=== PATIENT | female | born 1945 | race Caucasian/White ===

== ENCOUNTER → 2017-04-20 | Outpatient (CLI) | payer MEDICARE, BC ==
--- NOTE | 2017-04-21 06:55 | WWHP ---
DATE OF SERVICE: 04/20/2017 CHIEF COMPLAINT: The patient is here for her routine gynecologic exam. HPI: This is a 72-year-old G2, P2 with an LMP of 1991. The patient previously was on HRT and she was instructed to wean off of this. She states she decreased the dose by 50% in 05/23 and stopped HRT altogether in 07/24. She states she does have occasional hot flashes, but not every day and they are not very severe. She is otherwise without complaints and denies any postmenopausal bleeding. PAST MEDICAL HISTORY: Chronic hypertension and gastroesophageal reflux disease. MEDICATIONS: 1. Omeprazole 20 mg b.i.d. 2. Atenolol 25 mg half tablet daily. 3. Vitamin D3, 1000 units daily. 4. Aspirin 81 mg daily. 5. Multivitamin daily. 6. Probiotic daily. 7. FiberChoice 2 daily. ALLERGIES: RYNATAN, DISALCID, BACTRIM DS and TOBRAMYCIN EYE DROPS. 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 REVIEW OF SYSTEMS: She has gained about 8 pounds over the last year. RESPIRATORY: She occasionally gets short of breath. She denies cardiac or GI problems. She denies maltreatment or falling. : Bladder control has been not a problem. PHYSICAL EXAM: Blood pressure 138/82. Height 5 feet 2 inches. Weight 220 pounds. Temperature 96.0. Pulse 60. This a well-developed, heavyset white female who is alert and oriented x3 in no acute distress. HEENT is within normal limits. NECK: Supple without mass or thyromegaly. CHEST AND LUNGS: Clear to auscultation. HEART: Regular rate and rhythm. Breasts are without mass or discharge. Axillary exam is negative for adenopathy. BACK: Negative for CVA tenderness. ABDOMEN: Obese, soft, nontender, without palpable masses. PELVIC EXAM: External genitalia reveals mild to moderate atrophy without lesions. Cervix and vagina reveal mild to moderate atrophy without lesions. There is no evidence of prolapse. The uterus is midposition, nongravid size and nontender. There are no palpable adnexal masses or tenderness. Rectovaginal exam is negative for mass or tenderness and is negative for occult blood. EXTREMITIES: Nontender. IMPRESSION: 1. A 72-year-old menopausal female with normal gynecologic exam. 2. The patient has weaned herself off of the HRT as of 07/24. 3. Mild vasomotor symptoms after discontinuing HRT. PLAN: 1. Pap smear was deferred, since she had a normal one last year. 2. Self breast examination was discussed. 3. Mammogram will be due in 06/24 and a slip was given to patient for this. 4. Osteoporosis prevention was discussed. Will plan on repeating bone density testing next year. 5. She will return in one year.
== END | disposition home or self-care (01) ==
LOC: WWCWWP 13:08
PROVIDERS: ATTEND Obstetrics & Gynecology
DX: Z53.9 Procedure and treatment not carried out, unspecified reason (principal)

== ENCOUNTER → 2017-07-21 | Outpatient (CLI) | payer MEDICARE, BC ==
--- NOTE | 2017-07-22 08:27 | MM ---
Reason for exam: screening (asymptomatic). Last mammogram was performed 1 year and 1 month ago. History: Patient is postmenopausal and has history of other cancer at age 54. Family history of breast cancer in daughter at age 45. Taking progesterone for 17 years beginning at age 52. Physical Findings: A clinical breast exam by your physician is recommended on an annual basis and results should be correlated with mammographic findings. MG 3D Screening Mammo W/Cad Bilateral CC and MLO view(s) were taken. Prior study comparison: June 22, 2016, bilateral MG 3d screening mammo w/cad. June 21, 2015, bilateral MG screening mammo w CAD. The breast tissue is heterogeneously dense. This may lower the sensitivity of mammography. Focal asymmetry in the lower right MLO view is stable. No significant changes when compared with prior studies. ASSESSMENT: Benign, BI-RAD 2 RECOMMENDATION: Routine screening mammogram of both breasts in 1 year.
== END | disposition home or self-care (01) ==
LOC: RADMAMWWP 09:54
PROVIDERS: ATTEND Obstetrics & Gynecology
DX: Z12.31 Encounter for screening mammogram for malignant neoplasm of breast (principal)
CPT/HCPCS: 77063; G0202

== ENCOUNTER 2017-08-29 13:24 | Observation (INO) | payer MEDICARE, BC ==
[2017-08-29] MEDS ORDERED: NITROGLYCERIN OINT 1 INCH/GM PACKET TOPICAL STA (13:42)
[2017-08-29] MEDS ORDERED: ASPIRIN 81 MG PO STA (13:42)
--- NOTE | 2017-08-29 13:48 | ED ---
General Adult HPI - General Stated complaint: chest pain Time Seen by Provider: 08/29/17 13:25 Source: RN notes reviewed - History of Present Illness Initial comments: This is a 72-year-old female who presents emergency Department complaining of chest pressure about a half hour prior to arrival. According to the paramedics the patient was in atrial fibrillation and converted in route and her pressure went away. Patient was not given any nitroglycerin but was given an aspirin. Patient currently states she feels considerably better. Patient denies any radiation of the pain. Patient denies any diaphoresis per patient denies any nausea. Patient denies any shortness of breath. Patient states she has not experienced this in the past. Patient states she does have high blood pressure high cholesterol and she does have a family history of heart disease. Patient denies any recent fever chills or cough. Patient denies any headache patient denies lightheadedness or dizziness. Patient denies any near syncopal episodes. Patient denies any abdominal pain patient denies any vomiting diarrhea - Related Data Home Medications Medication Instructions Recorded Confirmed Aspirin EC [Ecotrin] 81 mg PO HS 04/25/15 08/29/17 Cholecalciferol [Vitamin D3] 1,000 unit PO DAILY 04/25/15 08/29/17 Multivitamins, Thera [Theragran] 1 tab PO HS 04/25/15 08/29/17 Omeprazole [PriLOSEC] 20 mg PO BID 04/25/15 08/29/17 Atenolol [Tenormin] 12.5 mg PO HS 08/29/17 08/29/17 Inulin/Chromium Picolinate [Fiber 2 tab PO HS 08/29/17 08/29/17 Gummies Chew] L.acidoph,Paracasei, B.lactis 1 cap PO DAILY 08/29/17 08/29/17 [Probiotic] Allergies Allergy/AdvReac Type Severity Reaction Status Date / Time erythromycin base Allergy Unknown Verified 08/29/17 14:31 [From Erythrocin] salsalate [From Disalcid] AdvReac Vomiting Verified 08/29/17 14:31 Sulfa (Sulfonamide AdvReac Vomiting Verified 08/29/17 14:31 Antibiotics) tobramycin AdvReac Vomiting Verified 08/29/17 14:31 Review of Systems ROS Statement: Those systems with pertinent positive or pertinent negative responses have been documented in the HPI. ROS Other: All systems not noted in ROS Statement are negative. Past Medical History Past Medical History: GERD/Reflux, Hyperlipidemia, Hypertension Additional Past Medical History / Comment(s): 04/26/15 Pt presented to [facility] ER with burning pain epigastric and sternal and going up into her throat with nausea as well. She felt weak. Subligual nitrogylcering with gradual relief. Other hx: Past EGD which showed gastritis, hiatal hernia and esophagitis, basal cell skin cancer, diverticulitis, L great toe fungus infection being tx with topical RX, low back pain, DDD, tinnitis bilaterally, occasional ankle edema-uses lasix prn for this but has not needed for a long time. History of Any Multi-Drug Resistant Organisms: None Reported Past Surgical History: Cholecystectomy, Orthopedic Surgery Additional Past Surgical History / Comment(s): 04/26/15 Ccath-normal, EGD, colonoscopies and once a polypectomy-benign, basa cell skin cancer removal (nose ), bilateral bunionectomies. Past Anesthesia/Blood Transfusion Reactions: No Reported Reaction Past Psychological History: No Psychological Hx Reported Smoking Status: Never smoker Past Alcohol Use History: None Reported Past Drug Use History: None Reported - Past Family History Father Additional Family Medical History / Comment(s): Parkinson's dx. Father is . Mother Family Medical History: Diabetes Mellitus, Thyroid Disorder Additional Family Medical History / Comment(s): Father is alive and 93 yrs old. General Exam - General Exam Comments Initial Comments: GENERAL: Patient is well-developed and well-nourished. Patient is nontoxic and well- hydrated and is in mild distress. ENT: Neck is soft and supple. No significant lymphadenopathy is noted. Oropharynx is clear. Moist mucous membranes. Neck has full range of motion without eliciting any pain. EYES: The sclera were anicteric and conjunctiva were pink and moist. Extraocular movements were intact and pupils were equal round and reactive to light. Eyelids were unremarkable. PULMONARY: Unlabored respirations. Good breath sounds bilaterally. No audible rales rhonchi or wheezing was noted. CARDIOVASCULAR: There is a regular rate and rhythm without any murmurs gallops or rubs. ABDOMEN: Soft and nontender with normal bowel sounds. No palpable organomegaly was noted. There is no palpable pulsatile mass. SKIN: Skin is clear with no lesions or rashes and otherwise unremarkable. NEUROLOGIC: Patient is alert and oriented x3. Cranial nerves II through XII are grossly intact. Motor and sensory are also intact. Normal speech, volume and content. Symmetrical smile. MUSCULOSKELETAL: Normal extremities with adequate strength and full range of motion. No lower extremity swelling or edema. No calf tenderness. LYMPHATICS: No significant lymphadenopathy is noted PSYCHIATRIC: Normal psychiatric evaluation. Normal interpersonal interactions appears functionally intact in deals appropriately with others. No signs of depression. No signs of anxiety. Course Vital Signs 08/29/17 08/29/17 13:47 14:56 Temperature 98 F Pulse Rate 64 59 L Respiratory 18 18 Rate Blood Pressure 183/79 159/72 O2 Sat by Pulse 98 98 Oximetry Medical Decision Making - Medical Decision Making EKG shows a sinus bradycardia 59 bpm AK interval is on a 34 QRS is 94 Q-T intervals 408 QTC is 403 per patient's EKG shows no ST segment elevation or depression or T-wave abdomen is noted. Chest x-ray shows no acute abnormality I started the patient heparin because of the A. fib that the patient was having prior to coming to the hospital. I spoke with Dr. Shankar he agreed to admit the patient admitted the patient I consult cardiogenic continue the heparin on the floor. - Lab Data Result diagrams: 08/29/17 13:54 08/29/17 13:54 Lab Results 08/29/17 08/29/17 08/29/17 Range/Units 13:54 13:54 13:54 WBC 7.6 (3.8-10.6) k/uL RBC 4.77 (3.80-5.40) m/uL Hgb 14.6 (11.4-16.0) gm/dL Hct 44.8 (34.0-46.0) % MCV 93.9 (80.0-100.0) fL MCH 30.7 (25.0-35.0) pg MCHC 32.7 (31.0-37.0) g/dL RDW 13.8 (11.5-15.5) % Plt Count 195 (150-450) k/uL Neutrophils % 54 % Lymphocytes % 36 % Monocytes % 6 % Eosinophils % 2 % Basophils % 1 % Neutrophils # 4.1 (1.3-7.7) k/uL Lymphocytes # 2.8 (1.0-4.8) k/uL Monocytes # 0.4 (0-1.0) k/uL Eosinophils # 0.1 (0-0.7) k/uL Basophils # 0.1 (0-0.2) k/uL PT (9.0-12.0) sec INR (<1.2) APTT (22.0-30.0) sec Sodium 140 (137-145) mmol/L Potassium 3.7 (3.5-5.1) mmol/L Chloride 105 (98-107) mmol/L Carbon Dioxide 24 (22-30) mmol/L Anion Gap 11 mmol/L BUN 15 (7-17) mg/dL Creatinine 0.86 (0.52-1.04) mg/dL Est GFR (MDRD) Af Amer >60 (>60 ml/min/1.73 sqM) Est GFR (MDRD) Non-Af >60 (>60 ml/min/1.73 sqM) Glucose 149 H (74-99) mg/dL Calcium 9.7 (8.4-10.2) mg/dL Magnesium 1.8 (1.6-2.3) mg/dL Total Bilirubin 0.4 (0.2-1.3) mg/dL AST 31 (14-36) U/L ALT 37 (9-52) U/L Alkaline Phosphatase 69 (38-126) U/L Total Creatine Kinase 84 (30-135) U/L CK-MB (CK-2) 1.4 (0.0-2.4) ng/mL CK-MB (CK-2) Rel Index 1.7 Troponin I <0.012 (0.000-0.034) ng/mL NT-Pro-B Natriuret Pep pg/mL Total Protein 7.4 (6.3-8.2) g/dL Albumin 4.1 (3.5-5.0) g/dL 08/29/17 08/29/17 Range/Units 13:54 13:54 WBC (3.8-10.6) k/uL RBC (3.80-5.40) m/uL Hgb (11.4-16.0) gm/dL Hct (34.0-46.0) % MCV (80.0-100.0) fL MCH (25.0-35.0) pg MCHC (31.0-37.0) g/dL RDW (11.5-15.5) % Plt Count (150-450) k/uL Neutrophils % % Lymphocytes % % Monocytes % % Eosinophils % % Basophils % % Neutrophils # (1.3-7.7) k/uL Lymphocytes # (1.0-4.8) k/uL Monocytes # (0-1.0) k/uL Eosinophils # (0-0.7) k/uL Basophils # (0-0.2) k/uL PT 10.6 (9.0-12.0) sec INR 1.0 (<1.2) APTT 21.7 L (22.0-30.0) sec Sodium (137-145) mmol/L Potassium (3.5-5.1) mmol/L Chloride (98-107) mmol/L Carbon Dioxide (22-30) mmol/L Anion Gap mmol/L BUN (7-17) mg/dL Creatinine (0.52-1.04) mg/dL Est GFR (MDRD) Af Amer (>60 ml/min/1.73 sqM) Est GFR (MDRD) Non-Af (>60 ml/min/1.73 sqM) Glucose (74-99) mg/dL Calcium (8.4-10.2) mg/dL Magnesium (1.6-2.3) mg/dL Total Bilirubin (0.2-1.3) mg/dL AST (14-36) U/L ALT (9-52) U/L Alkaline Phosphatase (38-126) U/L Total Creatine Kinase (30-135) U/L CK-MB (CK-2) (0.0-2.4) ng/mL CK-MB (CK-2) Rel Index Troponin I (0.000-0.034) ng/mL NT-Pro-B Natriuret Pep 385 pg/mL Total Protein (6.3-8.2) g/dL Albumin (3.5-5.0) g/dL Disposition Clinical Impression: New onset a-fib, Chest pressure Disposition: ADMITTED IP TO THIS [facility] Referrals: Fernandez Trujillo DO [Primary Care Provider] - 1-2 days Time of Disposition: 15:07
[2017-08-29 14:01] LABS: Basophils # (A) 0.1 k/uL (0-0.2); Basophils % (A) 1 %; CH 32.1; CHCM 34.3; Eosinophils # (A) 0.1 k/uL (0-0.7); Eosinophils % (A) 2 %; HCT 44.8 % (34.0-46.0); HDW 2.45; HGB 14.6 gm/dL (11.4-16.0); Luc # (Auto) 0.13; Luc % (Auto) 2; Lymphocytes # (A) 2.8 k/uL (1.0-4.8); Lymphocytes % (A) 36 %; MCH 30.7 pg (25.0-35.0); MCHC 32.7 g/dL (31.0-37.0); MCV 93.9 fL (80.0-100.0); Mean Platelet Volume 7.2; Monocytes # (A) 0.4 k/uL (0-1.0); Monocytes % (A) 6 %; Neutrophils # (A) 4.1 k/uL (1.3-7.7); Neutrophils % (A) 54 %; RBC 4.77 m/uL (3.80-5.40); RDW 13.8 % (11.5-15.5); WBC 7.6 k/uL (3.8-10.6); WBC (Perox) 7.57
[2017-08-29 14:11] LABS: ALT 37 U/L (9-52); AST 31 U/L (14-36); Alkaline Phosphatase 69 U/L (38-126); Anion Gap 11 mmol/L; Blood Urea Nitrogen 15 mg/dL (7-17); Calcium 9.7 mg/dL (8.4-10.2); Carbon Dioxide 24 mmol/L (22-30); Chloride 105 mmol/L (98-107); Glucose 149 mg/dL (74-99); Magnesium 1.8 mg/dL (1.6-2.3); Non-African American GFR(MDRD) >60 (>60 ml/min/1.73 sqM); Potassium 3.7 mmol/L (3.5-5.1); Sodium 140 mmol/L (137-145); Total Bilirubin 0.4 mg/dL (0.2-1.3); Total Protein 7.4 g/dL (6.3-8.2)
[2017-08-29 14:17] LABS: Partial Thromboplastin Time 21.7 sec (22.0-30.0); Prothrombin Time 10.6 sec (9.0-12.0)
[2017-08-29 14:24] LABS: Creatine Kinase 84 U/L (30-135)
[2017-08-29 14:38] LABS: Creatine Kinase MB 1.4 ng/mL (0.0-2.4); Troponin I <0.012 ng/mL (0.000-0.034)
--- NOTE | 2017-08-29 14:39 | XR ---
EXAMINATION TYPE: XR chest 2V DATE OF EXAM: 08/29/2017 COMPARISON: April 26, 2015 HISTORY: Chest pain TECHNIQUE: Frontal and lateral views of the chest are obtained. FINDINGS: There is stable elevation right hemidiaphragm. No pneumothorax or sizable pleural effusion is identified. The cardiac silhouette is unchanged. Calcifications are identified and a tortuous aor ta. There is slight exaggeration of the normal thoracic kyphosis. There is a degree of osteopenia. IMPRESSION: No acute cardiopulmonary process.
[2017-08-29] MEDS ORDERED: HEPARIN SODIUM,PORCINE 5,000 UNIT/ML 1 ML VIAL IV ONE (15:06)
[2017-08-29] MEDS ORDERED: NITROGLYCERIN SL TABS 0.4 MG TAB SUBLINGUAL PRN (15:07)
[2017-08-29] MEDS ORDERED: HEPARIN SODIUM,PORCINE/D5W PMX 25,000 UNIT in DEXTROSE/WATER 1 500ML.BAG IV SCH (15:15)
[2017-08-29] MEDS ORDERED: HEPARIN SODIUM,PORCINE 5,000 UNIT/ML 1 ML VIAL IV PRN (20:42)
[2017-08-29] MEDS ORDERED: NON-FORMULARY DRUG (Aspirin Ec 81 MG) PO SCH (21:00)
[2017-08-29] MEDS: ATENOLOL 12.5 MG TAB PO SCH (21:26)
[2017-08-29 21:40] LABS: Creatine Kinase 61 U/L (30-135)
[2017-08-29 21:52] LABS: Creatine Kinase MB 1.1 ng/mL (0.0-2.4); Troponin I <0.012 ng/mL (0.000-0.034)
[2017-08-30 02:14] LABS: Basophils % (A) 1 %; CH 31.4; CHCM 33.4; Eosinophils # (A) 0.2 k/uL (0-0.7); Eosinophils % (A) 3 %; HCT 36.4 % (34.0-46.0); HDW 2.47; HGB 12.1 gm/dL (11.4-16.0); Luc # (Auto) 0.15; Luc % (Auto) 2; Lymphocytes # (A) 3.3 k/uL (1.0-4.8); Lymphocytes % (A) 50 %; MCH 31.6 pg (25.0-35.0); MCHC 33.3 g/dL (31.0-37.0); MCV 94.7 fL (80.0-100.0); Mean Platelet Volume 6.5; Monocytes # (A) 0.5 k/uL (0-1.0); Monocytes % (A) 7 %; Neutrophils # (A) 2.5 k/uL (1.3-7.7); Neutrophils % (A) 37 %; RBC 3.84 m/uL (3.80-5.40); RDW 12.6 % (11.5-15.5); WBC 6.7 k/uL (3.8-10.6); WBC (Perox) 6.29
[2017-08-30 02:31] LABS: Anion Gap 8 mmol/L; Blood Urea Nitrogen 16 mg/dL (7-17); Carbon Dioxide 24 mmol/L (22-30); Chloride 105 mmol/L (98-107); Cholesterol 179 mg/dL (<200); Glucose 113 mg/dL (74-99); HDL Cholesterol 49 mg/dL (40-60); Non-African American GFR(MDRD) >60 (>60 ml/min/1.73 sqM); Potassium 3.7 mmol/L (3.5-5.1); Sodium 137 mmol/L (137-145)
[2017-08-30 02:40] LABS: Creatine Kinase 58 U/L (30-135)
[2017-08-30 02:52] LABS: Troponin I <0.012 ng/mL (0.000-0.034)
[2017-08-30] MEDS: ASPIRIN 325 MG TAB PO SCH (10:30)
[2017-08-30] MEDS: LISINOPRIL 10 MG TAB PO SCH (10:30)
--- NOTE | 2017-08-30 10:58 | ECHOF ---
Referral Reason:cp MEASUREMENTS -------- HEIGHT: 157.5 cm WEIGHT: 99.3 kg BP: IVSd: 1.1 cm (0.6 - 1.1) LVIDd: 5.3 cm (3.9 - 5.3) LVPWd: 0.8 cm (0.6 - 1.1) IVSs: 1.4 cm LVIDs: 3.7 cm LVPWs: 1.3 cm LA Diam: 3.5 cm (2.7 - 3.8) LAESV Index (A-L): 22.82 ml/m Ao Diam: 3.1 cm (2.0 - 3.7) AV Cusp: 2.1 cm (1.5 - 2.6) LA Diam: 3.4 cm (2.7 - 3.8) MV EXCURSION: 14.577 mm (> 18.000) MV EF SLOPE: 75 mm/s (70 - 150) EPSS: 1.2 cm MV E Raheem: 0.63 m/s MV DecT: 245 ms MV A Raheem: 0.81 m/s MV E/A Ratio: 0.79 RAP: 5.00 mmHg RVSP: 18.87 mmHg FINDINGS -------- Sinus rhythm. This was a technically adequate study. The left ventricular size is normal. There is mild concentric left ventricular hypertrophy. Overall left ventricular systolic function is normal with, an EF between 65 - 70 %. The right ventricle is normal in size. Normal LA size by volume 22+/-6 ml/m2. The right atrial size is normal. The aortic valve is trileaflet, and appears structurally normal. No aortic stenosis or regurgitation. Mild mitral regurgitation is present. Mild tricuspid regurgitation present. There is no evidence of pulmonary hypertension. The right ventricular systolic pressure, as measured by Doppler, is 18.87mmHg. There is no pulmonic regurgitation present. The aortic root size is normal. Echo free space represents a pericardial fat pad. CONCLUSIONS -------- 1. The left ventricular size is normal. 2. The aortic root size is normal. 3. Echo free space represents a pericardial fat pad. 4. There is mild concentric left ventricular hypertrophy. 5. Normal LA size by volume 22+/-6 ml/m2. 6. The aortic valve is trileaflet, and appears structurally normal. No aortic stenosis or regurgitation. 7. Mild mitral regurgitation is present. 8. Mild tricuspid regurgitation present. 9. There is no evidence of pulmonary hypertension. 10. The right ventricular systolic pressure, as measured by Doppler, is 18.87mmHg. 11. There is no pulmonic regurgitation present. COMMERCIAL LOAN MANAGER: Jennifer Murry RDCS
--- NOTE | 2017-08-30 11:15 | P.CRDCN ---
History of Present Illness Consult date: 08/30/17 History of present illness: This is a 72-year-old very pleasant female with past medical history of hyperlipidemia and hypertension. She has seen Dr. Romero in the past. She underwent cardiac catheterization 2014 which revealed normal coronary arteries. She presented to the hospital with complaints of midsternal chest tightness at rest. She states she was sitting down reading the paper having a cup of coffee when she got this intense tightness in the center of her chest. It was not associated with shortness of breath, dizziness, palpitations or diaphoresis. She states the pain persisted and seemed to get worse when she stood up and tried to move around. She decided to call EMS at that point. They arrived they did an EKG and she was in atrial fibrillation with a rapid ventricular response. She denies any previous history of this. By the time she arrived to the emergency department she had auto converted back to sinus mechanism. EKG upon arrival shows sinus bradycardia with non-specific changes with T-eave inversions in inferior leads. She follows regularly with Dr. Trujillo. The pain subsequently resolved on its own when she converted to sinus mechanism. She can't specify no aggravating or alleviating factors. She has been chest pain-free overnight. Telemetry tracings revealed no further episodes of atrial fibrillation. Cardiac enzymes negative x3. Blood pressure 181 /84 with heart rate 61. She has been elevated since admission. Current cardiac medications include aspirin 81 mg daily and atenolol 12.5 mg daily. Review of Systems CONSTITUTIONAL: Denies fever. Denies chills. EYES: Denies blurred vision. Denies vision changes. Denies eye pain. EARS, NOSE, MOUTH & THROAT: Denies headache. Denies sore throat. Denies ear pain. CARDIOVASCULAR: Complains of chest pain, resolved. Denies shortness of breath. Denies orthopnea. Denies PND. Denies palpitations. RESPIRATORY: Complains of dry cough. Recently treated for bronchitis. GASTROINTESTINAL: Denies abdominal pain. Denies diarrhea. Denies constipation. Denies nausea. Denies vomitng. MUSCULOSKELETAL: Denies myalgias. INTEGUMENTARY: Denies pruitis. Denies rash. NEUROLOGIC: Denies numbness. Denies tingling. Denies weakness. PSYCHIATRIC: Denies anxiety. Denies depression. ENDOCRINE: Denies fatigue. Denies weight change. Denies polydipsia. Denies polyurina. GENITOURINARY: Denies burning, hematuria or urgency with micturation. HEMATOLOGIC: Denies history of anemia. Denies bleeding. Past Medical History Past Medical History: GERD/Reflux, Hyperlipidemia, Hypertension Additional Past Medical History / Comment(s): Other hx: Past EGD which showed gastritis, hiatal hernia and esophagitis, basal cell skin cancer, diverticulitis , L great toe fungus infection treated, low back pain, DDD, tinnitis bilaterally History of Any Multi-Drug Resistant Organisms: None Reported Past Surgical History: Cholecystectomy, Orthopedic Surgery Additional Past Surgical History / Comment(s): 04/26/15 heart cath-normal, EGD , colonoscopies and once a polypectomy-benign, last colonoscopy was negative for any poylps 06/2011, basal cell skin cancer removal (nose), right bunionectomies, surgery shortened eyelids. Past Anesthesia/Blood Transfusion Reactions: No Reported Reaction Additional Past Anesthesia/Blood Transfusion Reaction / Comment(s): no blood transfusions Past Psychological History: No Psychological Hx Reported Additional Psychological History / Comment(s): She is independent. She uses no assistive device or home care agency. She can drive but perfers not to do so. Smoking Status: Never smoker Past Alcohol Use History: None Reported Past Drug Use History: None Reported - Past Family History Father Additional Family Medical History / Comment(s): Parkinson's dx. Father is . Mother Family Medical History: Diabetes Mellitus, Thyroid Disorder Additional Family Medical History / Comment(s): Father is alive and 93 yrs old. Medications and Allergies Home Medications Medication Instructions Recorded Confirmed Type Aspirin EC [Ecotrin] 81 mg PO HS 04/25/15 08/29/17 History Cholecalciferol [Vitamin D3] 1,000 unit PO DAILY 04/25/15 08/29/17 History Multivitamins, Thera [Theragran] 1 tab PO HS 04/25/15 08/29/17 History Omeprazole [PriLOSEC] 20 mg PO BID 04/25/15 08/29/17 History Atenolol [Tenormin] 12.5 mg PO HS 08/29/17 08/29/17 History Inulin/Chromium Picolinate [Fiber 2 tab PO HS 08/29/17 08/29/17 History Gummies Chew] L.acidoph,Paracasei, B.lactis 1 cap PO DAILY 08/29/17 08/29/17 History [Probiotic] Rivaroxaban [Xarelto] 20 mg PO W/SUPPER #30 tab 08/30/17 Rx Allergies Allergy/AdvReac Type Severity Reaction Status Date / Time erythromycin base Allergy Unknown Verified 08/29/17 14:31 [From Erythrocin] salsalate [From Disalcid] AdvReac Vomiting Verified 08/29/17 14:31 Sulfa (Sulfonamide AdvReac Vomiting Verified 08/29/17 14:31 Antibiotics) tobramycin AdvReac Vomiting Verified 08/29/17 14:31 Physical Exam Vitals: Vital Signs Temp Pulse Pulse Resp BP BP Pulse Ox 08/30/17 07:35 98.1 F 61 18 181/84 94 L 08/30/17 04:00 18 08/30/17 03:43 98.4 F 59 L 18 173/74 94 L 08/30/17 00:00 18 08/29/17 23:46 98.3 F 61 18 159/69 94 L 08/29/17 20:00 97.9 F 66 18 147/62 95 08/29/17 16:46 62 18 08/29/17 15:55 97.6 F 62 18 169/86 96 08/29/17 15:46 98 F 61 18 168/78 98 08/29/17 14:56 59 L 18 159/72 98 08/29/17 13:47 98 F 64 18 183/79 98 Intake and Output 08/29/17 08/30/17 08/30/17 22:59 06:59 14:59 Intake Total 164.333 196.8 Balance 164.333 196.8 Intake: Intake, IV Titration 164.333 196.8 Amount Heparin Sodium,Porcine/ 164.333 196.8 D5w Pmx 25,000 unit In Dextrose/Water 1 500ml. bag @ 9.98 UNITS/KG/HR 20 mls/hr IV .Q24H [facility] Rx#: [id number] Other: Voiding Method Toilet Toilet # Voids 1 Weight 99.6 kg GENERAL: This is a 72-year-old female in no apparent distress at the time of my examination. Morbidly obese. HEENT: Head is atraumatic, normocephalic. Pupils are equal, round. Sclerae anicteric. Conjunctivae are clear. Mucous membranes of the mouth are moist. Neck is supple. There is no jugular venous distention. No carotid bruit is heard. LUNGS: Clear to auscultation no wheezes, rales or rhonchi. No chest wall tenderness is noted on palpation or with deep breathing. HEART: Regular rate and rhythm without murmurs, rubs or gallops. S1 and S2 heard. ABDOMEN: Soft, nontender. Bowel sounds are heard. No organomegaly noted. EXTREMITIES: 2+ peripheral pulses with no evidence of peripheral edema and no calf tenderness noted. NEUROLOGIC: Patient is awake, alert and oriented x3. Results 08/30/17 02:00 08/30/17 02:00 Cardiac Enzymes 08/29/17 08/29/17 08/29/17 Range/Units 13:54 13:54 20:48 AST 31 (14-36) U/L CK-MB (CK-2) 1.4 1.1 (0.0-2.4) ng/mL Troponin I <0.012 <0.012 (0.000-0.034) ng/mL 08/30/17 Range/Units 01:54 AST (14-36) U/L CK-MB (CK-2) 1.0 (0.0-2.4) ng/mL Troponin I <0.012 (0.000-0.034) ng/mL Coagulation 08/29/17 08/29/17 08/30/17 Range/Units 13:54 20:48 06:29 PT 10.6 (9.0-12.0) sec APTT 21.7 L 41.2 H 85.8 H (22.0-30.0) sec Lipids 08/30/17 Range/Units 02:00 Triglycerides 82 (<150) mg/dL Cholesterol 179 (<200) mg/dL HDL Cholesterol 49 (40-60) mg/dL CBC 08/29/17 08/30/17 Range/Units 13:54 02:00 WBC 7.6 6.7 (3.8-10.6) k/uL RBC 4.77 3.84 (3.80-5.40) m/uL Hgb 14.6 12.1 (11.4-16.0) gm/dL Hct 44.8 36.4 (34.0-46.0) % Plt Count 195 164 (150-450) k/uL Comprehensive Metabolic Panel 08/29/17 08/30/17 Range/Units 13:54 02:00 Sodium 140 137 (137-145) mmol/L Potassium 3.7 3.7 (3.5-5.1) mmol/L Chloride 105 105 (98-107) mmol/L Carbon Dioxide 24 24 (22-30) mmol/L BUN 15 16 (7-17) mg/dL Creatinine 0.86 0.90 (0.52-1.04) mg/dL Glucose 149 H 113 H (74-99) mg/dL Calcium 9.7 9.0 (8.4-10.2) mg/dL AST 31 (14-36) U/L ALT 37 (9-52) U/L Alkaline Phosphatase 69 (38-126) U/L Total Protein 7.4 (6.3-8.2) g/dL Albumin 4.1 (3.5-5.0) g/dL Current Medications Generic Name Dose Route Start Last Admin Trade Name Freq PRN Reason Stop Dose Admin Aspirin 325 mg 08/30/17 09:00 Aspirin PO DAILY [facility] Atenolol 12.5 mg 08/29/17 21:00 08/29/17 21:26 Tenormin PO 12.5 mg HS [facility] Administration Heparin Sodium (Porcine) 0 unit 08/29/17 20:42 08/29/17 23:51 Heparin IV 4,000 unit PER PROTOCOL PRN Administration Low PTT Protocol Heparin Sodium/Dextrose 25,000 500 mls @ 20 mls/hr 08/29/17 15:15 08/30/17 08 :02 unit/ IV Solution IV 0 units/kg/hr .Q24H [facility] 0 mls/hr Protocol Titration 9.98 UNITS/KG/HR Nitroglycerin 0.4 mg 08/29/17 15:07 Nitrostat SUBLINGUAL Q5M PRN Chest Pain Intake and Output 08/29/17 08/30/17 08/30/17 22:59 06:59 14:59 Intake Total 164.333 196.8 Balance 164.333 196.8 Intake: Intake, IV Titration 164.333 196.8 Amount Heparin Sodium,Porcine/ 164.333 196.8 D5w Pmx 25,000 unit In Dextrose/Water 1 500ml. bag @ 9.98 UNITS/KG/HR 20 mls/hr IV .Q24H [facility] Rx#: [id number] Other: Voiding Method Toilet Toilet # Voids 1 Weight 99.6 kg 08/30/17 02:00 08/30/17 02:00 Assessment and Plan Assessment: ASSESSMENT 1. Chest pain, atypical 2. New onset atrial fibrillation 3. Hypertensive urgency 4. Dyslipidemia 5. Morbid obesity PLAN Obtain 2-D echo and Doppler study to assess cardiac structure/function. Add lisinopril 10 mg daily to her daily medication regimen. Continue Tenormin as previously ordered. CHADSVASC score 3, will start her on Xarelto 20 mg daily with dinner. The risks and benefits of long-term anticoagulation has been explained to her and questions answered appropriately. She denies any active bleeding and is aware of the signs/symptoms of bleeding. Insurance has been verified and this is affordable and acceptable to the patient. Nurse Practitioner note has been reviewed, I agree with a documented findings and plan of care. Patient was seen and examined.
--- NOTE | 2017-08-30 14:31 | P.HPIM ---
History of Present Illness H&P Date: 08/30/17 72 year old female who presented to the ER on 08/29/2017 with a chief complaint of chest pain. Patient was eating breakfast, sitting down, and she began to get intense chest pressure. She had her call EMS and bring her to the hospital for evaluation. Per the initial EKG completed by EMS, the patient was in atrial fibrillation with rapid ventricular. The patient converted to sinus rhythm in route to the hospital. EKG upon arrival to the hospital shows sinus bradycardia with non-specific changes with T wave inversions in inferior leads. Her troponins were negative x3. The patient also has a history of GERD, hyperlipidema, and hypertension. The patient was seen and examined this morning on rounds with Dr. Trujillo. She is sitting up in bed. She denies chest pain or pressure. Denies shortness of breath. Denies palpitations. She had an echocardiogram completed which revealed EF of 65-70%, mild mitral regurgitation and mild tricuspid regurgitation. She was started on Xarelto per cardiology. Her blood pressure has been elevated in the 160-180s. She was started on lisinopril per cardiology. Lab work was reviewed. Review of Systems Those systems with pertinent positive or pertinent negative responses have been documented in the HPI Past Medical History Past Medical History: GERD/Reflux, Hyperlipidemia, Hypertension Additional Past Medical History / Comment(s): Other hx: Past EGD which showed gastritis, hiatal hernia and esophagitis, basal cell skin cancer, diverticulitis , L great toe fungus infection treated, low back pain, DDD, tinnitis bilaterally History of Any Multi-Drug Resistant Organisms: None Reported Past Surgical History: Cholecystectomy, Orthopedic Surgery Additional Past Surgical History / Comment(s): 04/26/15 heart cath-normal, EGD , colonoscopies and once a polypectomy-benign, last colonoscopy was negative for any poylps 06/2011, basal cell skin cancer removal (nose), right bunionectomies, surgery shortened eyelids. Past Anesthesia/Blood Transfusion Reactions: No Reported Reaction Additional Past Anesthesia/Blood Transfusion Reaction / Comment(s): no blood transfusions Past Psychological History: No Psychological Hx Reported Additional Psychological History / Comment(s): She is independent. She uses no assistive device or home care agency. She can drive but perfers not to do so. Smoking Status: Never smoker Past Alcohol Use History: None Reported Past Drug Use History: None Reported - Past Family History Father Additional Family Medical History / Comment(s): Parkinson's dx. Father is . Mother Family Medical History: Diabetes Mellitus, Thyroid Disorder Additional Family Medical History / Comment(s): Father is alive and 93 yrs old. Medications and Allergies Home Medications Medication Instructions Recorded Confirmed Type Aspirin EC [Ecotrin] 81 mg PO HS 04/25/15 08/29/17 History Cholecalciferol [Vitamin D3] 1,000 unit PO DAILY 04/25/15 08/29/17 History Multivitamins, Thera [Theragran] 1 tab PO HS 04/25/15 08/29/17 History Omeprazole [PriLOSEC] 20 mg PO BID 04/25/15 08/29/17 History Atenolol [Tenormin] 12.5 mg PO HS 08/29/17 08/29/17 History Inulin/Chromium Picolinate [Fiber 2 tab PO HS 08/29/17 08/29/17 History Gummies Chew] L.acidoph,Paracasei, B.lactis 1 cap PO DAILY 08/29/17 08/29/17 History [Probiotic] Rivaroxaban [Xarelto] 20 mg PO W/SUPPER #30 tab 08/30/17 Rx Allergies Allergy/AdvReac Type Severity Reaction Status Date / Time erythromycin base Allergy Unknown Verified 08/29/17 14:31 [From Erythrocin] salsalate [From Disalcid] AdvReac Vomiting Verified 08/29/17 14:31 Sulfa (Sulfonamide AdvReac Vomiting Verified 08/29/17 14:31 Antibiotics) tobramycin AdvReac Vomiting Verified 08/29/17 14:31 Physical Exam Vitals: Vital Signs Temp Pulse Pulse Resp BP BP Pulse Ox 08/30/17 12:00 18 08/30/17 11:55 98.0 F 66 18 149/81 94 L 08/30/17 08:00 18 08/30/17 07:35 98.1 F 61 18 181/84 94 L 08/30/17 04:00 18 08/30/17 03:43 98.4 F 59 L 18 173/74 94 L 08/30/17 00:00 18 08/29/17 23:46 98.3 F 61 18 159/69 94 L 08/29/17 20:00 97.9 F 66 18 147/62 95 08/29/17 16:46 62 18 08/29/17 15:55 97.6 F 62 18 169/86 96 08/29/17 15:46 98 F 61 18 168/78 98 08/29/17 14:56 59 L 18 159/72 98 Intake and Output 08/29/17 08/30/17 08/30/17 22:59 06:59 14:59 Intake Total 164.333 916.8 Balance 164.333 916.8 Intake: Intake, IV Titration 164.333 196.8 Amount Heparin Sodium,Porcine/ 164.333 196.8 D5w Pmx 25,000 unit In Dextrose/Water 1 500ml. bag @ 9.98 UNITS/KG/HR 20 mls/hr IV .Q24H [facility] Rx#: [id number] Oral 720 Other: Voiding Method Toilet Toilet Toilet # Voids 1 Weight 99.6 kg GENERAL: Alert and oriented. Appears in no acute distress. Pleasant. RESPIRATORY: Lungs clear bilaterally. No use of accessory muscles. Patient maintaining oxygen saturation greater than 92%. CARDIOVASCULAR: S1 and S2 noted. No murmurs auscultated. No JVD noted. EXTREMITIES: No edema noted. Palpable pedal pulses +2. ABDOMEN: No distention noted. Abdomen soft and round. Normal active bowel sounds auscultated 4 quadrants. No pain or tenderness noted upon palpation. Results CBC & Chem 7: 08/30/17 02:00 08/30/17 02:00 Labs: Abnormal Lab Results - Last 24 Hours (Table) 08/29/17 08/29/17 08/29/17 Range/Units 13:54 13:54 20:48 APTT 21.7 L 41.2 H (22.0-30.0) sec Glucose 149 H (74-99) mg/dL LDL Cholesterol, Calc (0-99) mg/dL 08/30/17 08/30/17 Range/Units 02:00 06:29 APTT 85.8 H (22.0-30.0) sec Glucose 113 H (74-99) mg/dL LDL Cholesterol, Calc 114 H (0-99) mg/dL Thrombosis Risk Factor Assmnt - Choose All That Apply Any of the Below Risk Factors Present?: Yes Each Factor Represents 1 point: Obesity (BMI >25) Other Risk Factors: Yes Each Risk Factor Represents 2 Points: Age 61-74 years Other congenital or acquired thrombophilia - If yes, enter type in comment: No Thrombosis Risk Factor Assessment Total Risk Factor Score: 3 Thrombosis Risk Factor Assessment Level: Moderate Risk Assessment and Plan Plan: ASSESSMENT: -Chest pain, atypical, present on admission -New onset atrial fibrillation -Hypertensive urgency -Morbid obesity: BMI 40.2 -Hyperlipidemia -GERD PLAN: -Cardiology on consult. Appreciate recommendations and input -Lisinopril and Xarelto started per cardiology -Monitor telemetry and blood pressure -Resume home meds as appropriate -GI prophylaxis: Protonix 40mg daily PO -DVT prophylaxis: Xarelto -Monitor vital signs and address as appropriate -Anticipate discharge tomorrow morning per Dr. Trujillo The above impression and plan of care have been discussed and directed by signing physician. Steff Dowling, nurse practitioner, acting as scribe for signing physician.
[2017-08-30] MEDS ORDERED: RIVAROXABAN 10 MG TAB PO SCH (17:30)
[2017-08-30] MEDS ORDERED: RIVAROXABAN 15 MG TAB PO SCH (17:30)
[2017-08-30] MEDS: ATENOLOL 12.5 MG TAB PO SCH (21:00)
[2017-08-31 04:03] VITALS: RESP 18
[2017-08-31] MEDS ORDERED: PANTOPRAZOLE 40 MG TABLET PO SCH (07:30)
[2017-08-31 08:13] VITALS: TEMP 97.6
[2017-08-31] MEDS: ASPIRIN 325 MG TAB PO SCH (08:33)
[2017-08-31] MEDS: LISINOPRIL 10 MG TAB PO SCH (08:34)
[2017-08-31] MEDS ORDERED: REGADENOSON 0.4 MG/5 ML SYRINGE IV ONE (09:45)
[2017-08-31] MEDS ORDERED: AMINOPHYLLINE 500 MG/20 ML VIAL IV PRN (09:45)
[2017-08-31] MEDS ORDERED: LISINOPRIL 10 MG TAB PO SCH (10:00)
[2017-08-31] MEDS ORDERED: HYDROCHLOROTHIAZIDE 25 MG TAB PO SCH (10:00)
--- NOTE | 2017-08-31 10:39 | P.DS ---
Providers Date of admission: 08/29/17 15:07 Attending physician: Fernandez Tolliver Consults: 08/29/17 15:07 Consult Physician Urgent Consulting Provider: [facility] Consult Reason/Comments: Chest pressure, new onset A. fib Do you want consulting provider notified?: Yes Primary care physician: Fernandez Tolliver [facility] Course: 72 year old female who presented to the ER on 08/29/2017 with a chief complaint of chest pain. Patient was eating breakfast, sitting down, and she began to get intense chest pressure. She had her call EMS and bring her to the hospital for evaluation. Per the initial EKG completed by EMS, the patient was in atrial fibrillation with rapid ventricular. The patient converted to sinus rhythm in route to the hospital. EKG upon arrival to the hospital shows sinus bradycardia with non-specific changes with T wave inversions in inferior leads. Her troponins were negative x3. The patient also has a history of GERD, hyperlipidema, and hypertension. She had an echocardiogram completed which revealed EF of 65-70%, mild mitral regurgitation and mild tricuspid regurgitation. She was started on Xarelto per cardiology. Her blood pressure has been elevated in the 160-180s. Heart rate in the low 60s. Spoke with cardiology who would like the patient to remain on Atenolol 12.5mg once a daily, Xarelto 10mg daily, hydrochlorothiazide 25 mg daily, and 30 mg lisinopril once a day. The patient was seen and examined by Dr. Tolliver and was deemed stable for discharge. She is to follow outpatient with Dr. tolliver in 1 week. DISCHARGE DIAGNOSIS: -Chest pain, atypical, present on admission, acute coronary syndrome ruled out -New onset atrial fibrillation -Hypertensive urgency -Morbid obesity: BMI 40.2 -Hyperlipidemia -GERD The above impression and plan of care have been discussed and directed by signing physician. Steff Dowling, nurse practitioner, acting as scribe for signing physician. Patient Condition at Discharge: Stable Plan - Discharge Summary Discharge Rx Participant: Yes New Discharge Prescriptions: New Rivaroxaban [Xarelto] 20 mg PO W/SUPPER #30 tab Hydrochlorothiazide [Hydrodiuril] 25 mg PO DAILY #30 tab Lisinopril 30 mg PO DAILY #30 tab Continue Omeprazole [PriLOSEC] 20 mg PO BID Multivitamins, Thera [Multivitamin (formulary)] 1 tab PO HS Aspirin EC [Ecotrin Low Dose] 81 mg PO HS Cholecalciferol [Vitamin D3] 1,000 unit PO DAILY L.acidoph,Paracasei, B.lactis [Probiotic] 1 cap PO DAILY Atenolol [Tenormin] 12.5 mg PO HS Inulin/Chromium Picolinate [Fiber Gummies Chew] 2 tab PO HS Discharge Medication List Aspirin EC [Ecotrin Low Dose] 81 mg PO HS 04/25/15 [History] Cholecalciferol [Vitamin D3] 1,000 unit PO DAILY 04/25/15 [History] Multivitamins, Thera [Multivitamin (formulary)] 1 tab PO HS 04/25/15 [History] Omeprazole [PriLOSEC] 20 mg PO BID 04/25/15 [History] Atenolol [Tenormin] 12.5 mg PO HS 08/29/17 [History] Inulin/Chromium Picolinate [Fiber Gummies Chew] 2 tab PO HS 08/29/17 [History] L.acidoph,Paracasei, B.lactis [Probiotic] 1 cap PO DAILY 08/29/17 [History] Rivaroxaban [Xarelto] 20 mg PO W/SUPPER #30 tab 08/30/17 [Rx] Hydrochlorothiazide [Hydrodiuril] 25 mg PO DAILY #30 tab 08/31/17 [Rx] Lisinopril 30 mg PO DAILY #30 tab 08/31/17 [Rx] Follow up Appointment(s)/Referral(s): Brady Romero MD [STAFF PHYSICIAN] - 2 Weeks Fernandez Tolliver DO [Primary Care Provider] - 1 Week Discharge Disposition: HOME SELF-CARE
--- NOTE | 2017-08-31 10:47 | P.PN ---
Subjective Progress Note Date: 08/31/17 This is a 72-year-old very pleasant female with past medical history of hyperlipidemia and hypertension. She has seen Dr. Romero in the past. She underwent cardiac catheterization 2014 which revealed normal coronary arteries. She presented to the hospital with complaints of midsternal chest tightness at rest. She states she was sitting down reading the paper having a cup of coffee when she got this intense tightness in the center of her chest. It was not associated with shortness of breath, dizziness, palpitations or diaphoresis. She states the pain persisted and seemed to get worse when she stood up and tried to move around. She decided to call EMS at that point. They arrived they did an EKG and she was in atrial fibrillation with a rapid ventricular response. She denies any previous history of this. By the time she arrived to the emergency department she had auto converted back to sinus mechanism. EKG upon arrival shows sinus bradycardia with non-specific changes with T-eave inversions in inferior leads. She follows regularly with Dr. Trujillo. The pain subsequently resolved on its own when she converted to sinus mechanism. She can't specify no aggravating or alleviating factors. She has been chest pain-free since admission and telemetry tracings consistently show sinus mechanism with no arrhythmia. We added lisinopril 10 mg for blood pressure control and xarelto 20 mg daily for anticoagulation yesterday. Blood pressures have remained consistently elevated over the previous 24 hrs. Echo reveals mild concentric LVH with LV function 65-70%, mild MR, mild TR. She denies any symptoms of bleeding since starting xarelto. Objective - Vital Signs Vital signs: Vital Signs Temp 97.6 F 08/31/17 08:00 Pulse 65 08/31/17 08:00 Resp 18 08/31/17 08:00 BP 191/84 08/31/17 08:00 Pulse Ox 93 L 08/31/17 08:00 Intake & Output 08/30/17 08/31/17 08/31/17 18:59 06:59 18:59 Intake Total 916.8 750 240 Balance 916.8 750 240 Intake: Intake, IV Titration 196.8 Amount Heparin Sodium,Porcine/ 196.8 D5w Pmx 25,000 unit In Dextrose/Water 1 500ml. bag @ 9.98 UNITS/KG/HR 20 mls/hr IV .Q24H [facility] Rx#: [id number] Oral 720 750 240 Other: Voiding Method Toilet Toilet # Voids 2 2 - Exam GENERAL: Well-appearing, well-nourished and in no acute distress. Obese. NECK: Supple without JVD or thyromegaly. LUNGS: Breath sounds clear to auscultation bilaterally. Respiration equal and unlabored. No wheezes, rales or rhonchi. HEART: Regular rate and rhythm without murmurs, rubs or gallops. S1 and S2 heard. EXTREMITIES: Normal range of motion, no edema. No clubbing or cyanosis. Peripheral pulses intact and strong. - Labs CBC & Chem 7: 08/30/17 02:00 08/30/17 02:00 Assessment and Plan Assessment: ASSESSMENT 1. Chest pain, atypical 2. New onset atrial fibrillation 3. Hypertensive urgency 4. Dyslipidemia 5. Morbid obesity PLAN Increase lisinopril 30 mg daily; Add hydrochlorothiazide 25 mg daily; Continue tenormin and xarelto as previously ordered; Discussed with the patient checking her blood pressure daily at different times each day and keeping a log to share with Dr. Romero at her follow up visit. Discussed signs and symptoms of bleeding to be aware of and report to physicians. She verbalizes understanding. at the bedside during education and explanations. Nurse Practitioner note has been reviewed, I agree with a documented findings and plan of care. Patient was seen and examined.
[2017-08-31 12:01] VITALS: BP 155/79; PULSE 59
== END 2017-08-31 13:50 | disposition home or self-care (01) ==
LOC: EC 13:24 → 3OBS 15:07
PROVIDERS: ADMIT Family Medicine; ATTEND Family Medicine
DX: R07.89 Other chest pain (principal); I48.91 Unspecified atrial fibrillation; I10 Essential (primary) hypertension; E78.00 Pure hypercholesterolemia, unspecified; E78.5 Hyperlipidemia, unspecified; K21.9 Gastro-esophageal reflux disease without esophagitis; I08.1 Rheumatic disorders of both mitral and tricuspid valves; E66.01 Morbid (severe) obesity due to excess calories; I16.0 Hypertensive urgency; R00.1 Bradycardia, unspecified; K44.9 Diaphragmatic hernia without obstruction or gangrene; Z79.82 Long term (current) use of aspirin; Z82.49 Family history of ischemic heart disease and other diseases of the circulatory system; Z79.899 Other long term (current) drug therapy; Z88.3 Allergy status to other anti-infective agents; Z88.2 Allergy status to sulfonamides; Z88.8 Allergy status to other drugs, medicaments and biological substances; Z85.828 Personal history of other malignant neoplasm of skin; Z68.41 Body mass index [BMI] 40.0-44.9, adult
CPT/HCPCS: 93005 ×2; 96366 ×2; 96376 ×2; 96365; 99285; 36415; 93306; 83880; 80061; 80053; 80048; 82550 ×2; 82553 ×2; 83735; 84484 ×2; 85025 ×2; 85610; 85730 ×2; 71020; G0378 ×3; J1644 ×2

== ENCOUNTER 2017-09-20 23:19 | Emergency (ER) | payer MEDICARE, BC ==
[2017-09-21 00:07] LABS: Appearance,Urine Cloudy (Clear); Bilirubin,Urine Negative (Negative); Glucose,Urine (UA) Negative (Negative); Ketones,Urine Negative (Negative); Leukocyte Esterase,Urine Small (Negative); Mucus,Urine Rare /hpf; Nitrite,Urine Negative (Negative); PH, Urine 5.5 (5.0-8.0); Particle Count 23940; Protein,Urine 2+ (Negative); RBC,Urine 62 /hpf (0-5); Specific Gravity,Urine 1.006 (1.001-1.035); Squamous Epithelial Cell,Urine 2 /hpf (0-4); UA Billing (MACRO vs. MICRO) MICRO; Urobilinogen,Urine <2.0 mg/dL (<2.0); WBC,Urine 22 /hpf (0-5)
[2017-09-21] MEDS ORDERED: LEVOFLOXACIN 500 MG TAB PO STA (00:25)
--- NOTE | 2017-09-21 00:25 | ED ---
Female Urogenital HPI - General Chief complaint: Urogenital Stated complaint: Blood in Urine Time Seen by Provider: 09/20/17 23:40 Source: patient, family Mode of arrival: ambulatory Limitations: no limitations - History of Present Illness Initial comments: 72-year-old female patient presents to the emergency department today for evaluation of urinary symptoms. Patient states that starting yesterday she was having some increased in urinary frequency and dysuria. She states that symptoms did improve this morning however this evening she started to have some hematuria and became concerned. She states her last urinary tract infection was a couple of years ago. She denies any current back pain, nausea, vomiting, fever, or chills. She states she was recently started on Xarelto for new onset A. fib. She denies any dark, bloody, or black stools. She denies any abdominal pain with this. Denies any constipation or diarrhea. Patient denies any recent rash, shortness breath, chest pain, abdominal pain, numbness, tingling, dizziness, weakness, headache, visual changes, or any other complaints. - Related Data Home Medications Medication Instructions Recorded Confirmed Aspirin EC [Ecotrin Low Dose] 81 mg PO HS 04/25/15 09/20/17 Cholecalciferol [Vitamin D3] 1,000 unit PO DAILY 04/25/15 09/20/17 Multivitamins, Thera [Multivitamin 1 tab PO HS 04/25/15 09/20/17 (formulary)] Omeprazole [PriLOSEC] 20 mg PO BID 04/25/15 09/20/17 Atenolol [Tenormin] 12.5 mg PO HS 08/29/17 09/20/17 Inulin/Chromium Picolinate [Fiber 2 tab PO HS 08/29/17 09/20/17 Gummies Chew] L.acidoph,Paracasei, B.lactis 1 cap PO DAILY 08/29/17 09/20/17 [Probiotic] Previous Rx's Medication Instructions Recorded Rivaroxaban [Xarelto] 20 mg PO W/SUPPER #30 tab 08/30/17 Hydrochlorothiazide [Hydrodiuril] 25 mg PO DAILY #30 tab 08/31/17 Lisinopril 30 mg PO DAILY #30 tab 08/31/17 Fluconazole [Diflucan] 200 mg PO DAILY #1 tab 09/21/17 Levofloxacin [Levaquin] 250 mg PO DAILY #7 tablet 09/21/17 Allergies Allergy/AdvReac Type Severity Reaction Status Date / Time erythromycin base Allergy Unknown Verified 09/20/17 23:30 [From Erythrocin] salsalate [From Disalcid] AdvReac Vomiting Verified 09/20/17 23:30 Sulfa (Sulfonamide AdvReac Vomiting Verified 09/20/17 23:30 Antibiotics) tobramycin AdvReac Vomiting Verified 09/20/17 23:30 Review of Systems ROS Statement: Those systems with pertinent positive or pertinent negative responses have been documented in the HPI. ROS Other: All systems not noted in ROS Statement are negative. Past Medical History Past Medical History: GERD/Reflux, Hyperlipidemia, Hypertension Additional Past Medical History / Comment(s): Other hx: Past EGD which showed gastritis, hiatal hernia and esophagitis, basal cell skin cancer, diverticulitis , L great toe fungus infection treated, low back pain, DDD, tinnitis bilaterally History of Any Multi-Drug Resistant Organisms: None Reported Past Surgical History: Cholecystectomy, Orthopedic Surgery Additional Past Surgical History / Comment(s): 04/26/15 heart cath-normal, EGD , colonoscopies and once a polypectomy-benign, last colonoscopy was negative for any poylps 06/2011, basal cell skin cancer removal (nose), right bunionectomies, surgery shortened eyelids. Past Anesthesia/Blood Transfusion Reactions: No Reported Reaction Additional Past Anesthesia/Blood Transfusion Reaction / Comment(s): no blood transfusions Past Psychological History: No Psychological Hx Reported Smoking Status: Never smoker Past Alcohol Use History: None Reported Past Drug Use History: None Reported - Past Family History Father Additional Family Medical History / Comment(s): Parkinson's dx. Father is . Mother Family Medical History: Diabetes Mellitus, Thyroid Disorder Additional Family Medical History / Comment(s): Father is alive and 93 yrs old. General Exam Limitations: no limitations General appearance: alert, in no apparent distress, other (City well-developed, well-nourished adult female patient in no acute distress. Vital signs upon presentation are temperature 97.2F, pulse 61, respirations 20, blood pressure 143/94, pulse ox 98% on room air.) Eye exam: Present: normal appearance, PERRL, EOMI. Absent: scleral icterus, conjunctival injection, periorbital swelling Respiratory exam: Present: normal lung sounds bilaterally. Absent: respiratory distress, wheezes, rales, rhonchi, stridor Cardiovascular Exam: Present: regular rate, normal rhythm, normal heart sounds. Absent: systolic murmur, diastolic murmur, rubs, gallop, clicks GI/Abdominal exam: Present: soft, normal bowel sounds. Absent: distended, tenderness, guarding, rebound, rigid Back exam: Present: normal inspection. Absent: CVA tenderness (R), CVA tenderness (L) Neurological exam: Present: alert, oriented X3, CN II-XII intact Psychiatric exam: Present: normal affect, normal mood Skin exam: Present: warm, dry, intact, normal color. Absent: rash Course Vital Signs 09/20/17 09/21/17 23:26 00:40 Temperature 97.2 F L 97.1 F L Pulse Rate 61 58 L Respiratory 20 14 Rate Blood Pressure 143/94 139/66 O2 Sat by Pulse 98 96 Oximetry Medical Decision Making - Medical Decision Making 72-year-old female patient presented to the emergency department today with complaints of urinary symptoms. Physical examination was unremarkable. Abdomen was nontender. Patient had no CVA tenderness. Urinalysis was performed and did show cloudy appearance with 2+ protein, large amount of blood , small leukocyte esterase, 62 red blood cells and 22 white blood cells, as well as rare mucous. Patient will be started on Levaquin. Patient states that in the past she has had Levaquin 250 mg once daily for 8 days that has cleared her infections. She states that she also does get yeast infections with antibiotic use and is requesting a Diflucan pill as well. She is instructed to increase her fluids. She is instructed to follow-up with her primary care physician for recheck. She is instructed to return here immediately should she develop any fever, chills, nausea, vomiting, or back pain. She is instructed to have a repeat urinalysis performed once her antibiotic is completed to ensure clearance of infection. She verbalizes understanding and agrees with this plan. - Lab Data Lab Results 09/20/17 Range/Units 23:40 Urine Color Red Urine Appearance Cloudy H (Clear) Urine pH 5.5 (5.0-8.0) Ur Specific [place] 1.006 (1.001-1.035) Urine Protein 2+ H (Negative) Urine Glucose (UA) Negative (Negative) Urine Ketones Negative (Negative) Urine Blood Large H (Negative) Urine Nitrite Negative (Negative) Urine Bilirubin Negative (Negative) Urine Urobilinogen <2.0 (<2.0) mg/dL Ur Leukocyte Esterase Small H (Negative) Urine RBC 62 H (0-5) /hpf Urine WBC 22 H (0-5) /hpf Ur Squamous Epith Cells 2 (0-4) /hpf Urine Mucus Rare H (None) /hpf Disposition Clinical Impression: Urinary tract infection Disposition: HOME SELF-CARE Condition: Good Instructions: Urinary Tract Infection in Women (ED) Additional Instructions: Increase fluids. Complete antibiotic prescription and full. Follow-up with your primary care physician for repeat urinalysis once antibiotics are complete to ensure clearance of infection. Return here immediately should she develop any fever, chills, nausea, vomiting, or increase in back pain. Return here immediately for any other new, worsening, or concerning symptoms. Prescriptions: Fluconazole [Diflucan] 200 mg PO DAILY #1 tab Levofloxacin [Levaquin] 250 mg PO DAILY #7 tablet Referrals: Fernandez Trujillo DO [Primary Care Provider] - 1-2 days Time of Disposition: 00:25
[2017-09-21 00:41] VITALS: BP 139/66; PULSE 58; RESP 14; TEMP 97.1
== END 2017-09-21 00:42 | disposition home or self-care (01) ==
LOC: EC 23:19
DX: N39.0 Urinary tract infection, site not specified (principal); K21.9 Gastro-esophageal reflux disease without esophagitis; I10 Essential (primary) hypertension; Z85.828 Personal history of other malignant neoplasm of skin; Z79.82 Long term (current) use of aspirin; Z79.899 Other long term (current) drug therapy; Z88.1 Allergy status to other antibiotic agents; Z88.2 Allergy status to sulfonamides; Z88.8 Allergy status to other drugs, medicaments and biological substances
CPT/HCPCS: 81001; 87086; 99283

== ENCOUNTER → 2018-07-22 | Outpatient (CLI) | payer MEDICARE, BC ==
--- NOTE | 2018-07-22 19:37 | BD ---
EXAMINATION TYPE: Axial Bone Density DATE OF EXAM: 07/22/2018 CLINICAL HISTORY: Height: 62.25 Weight: 210 FRAX RISK QUESTIONS: Alcohol (3 or more units per day): no Family History (Parent hip fracture): no Glucocorticoids (More than 3mos): no (Ex: prednisone, prednisolone, methylprednisolone, dexamethasone, and hydrocortisone). History of Fracture in Adulthood: no Secondary Osteoporosis: 1. Type 1 Diabetes: no 2. Hyperthyroidism: no 3. Menopause before 45: no 4. Malnutrition: no 5. Chronic liver disease: no Rheumatoid Arthritis: no Current Tobacco Use: no RISK FACTORS HISTORY OF: Family History of Osteoporosis: unsure Active: yes Diet low in dairy products/other sources of calcium: no Postmenopausal woman: yes Take estrogen and/or progesterone medications: not now How long: about 18 years Lost more than 2 inches in height since high school: no Frequent falls: no Poor Health: slightly Hyperparathyroidism: no Adrenal Insufficiency: no MEDICATIONS: Prednisone or other steroids: no Thyroid Medications: no Osteoporosis Medications: not now Which medication: unsure How Long: unsure Additional Medications: Vitamin D, multiple vitamin ; Joan; Eliquis Additional History: osteoarthritis; went into "A"-fib last year & takes meds for that; low back pain (some scoliosis) EXAM MEASUREMENTS: Bone mineral densitometry was performed using the [employer] System. Bone mineral density as measured about the Lumbar spine is: ----- L1-L4(G/cm2): 1.104 T Score Values are as follows: ----- L2: -1.0 ----- L3: 0.1 ----- L4: -0.7 ----- L1-L4: -0.6 Bone mineral density has: Decreased -4.8% since study of: 07/14/2013 Bone mineral density about the R hip (g/cm2): 0.929 Bone mineral density about the L hip (g/cm2): 0.853 T Score values are as follows: -----R Neck: -0.8 -----L Neck: -1.3 -----R Total: -0.2 -----L Total: -0.6 Bone mineral density has: Decreased -5.8% since study of: 07/14/2013 IMPRESSION: Osteopenia (T Score between -2.5 and -1). There is slightly increased risk of fracture and the patient may be considered for treatment. Re-Screen 2-5 years. NOTE: T-SCORE=SD OF THE YOUNG ADULT MEAN.
--- NOTE | 2018-07-26 08:38 | MM ---
Reason for exam: screening (asymptomatic). Last mammogram was performed 1 year ago. History: Patient is postmenopausal and has history of other cancer at age 54. Family history of breast cancer in daughter at age 45. Taking progesterone for 17 years beginning at age 52. Physical Findings: A clinical breast exam by your physician is recommended on an annual basis and results should be correlated with mammographic findings. MG 3D Screening Mammo W/Cad Bilateral CC and MLO view(s) were taken. Prior study comparison: July 21, 2017, bilateral MG 3d screening mammo w/cad. June 22, 2016, bilateral MG 3d screening mammo w/cad. The breast tissue is heterogeneously dense. This may lower the sensitivity of mammography. No significant changes when compared with prior studies. ASSESSMENT: Negative, BI-RAD 1 RECOMMENDATION: Routine screening mammogram of both breasts in 1 year.
== END | disposition home or self-care (01) ==
LOC: RADMAMWWP 09:33
PROVIDERS: ATTEND Obstetrics & Gynecology
DX: Z12.31 Encounter for screening mammogram for malignant neoplasm of breast (principal); M85.80 Other specified disorders of bone density and structure, unspecified site; Z78.0 Asymptomatic menopausal state
CPT/HCPCS: 77063; 77067; 77080

== ENCOUNTER → 2018-07-27 | Outpatient (CLI) | payer MEDICARE, BC ==
[2018-07-27 10:34] VITALS: BP 131/81; PULSE 56; TEMP 97.5; BMI 38.9
--- NOTE | 2018-07-27 11:15 | P.HPOB ---
History of Present Illness H&P Date: 07/27/18 Chief Complaint: The patient is here for her routine gynecologic exam. This is a 73-year-old with an LMP of 1991. The patient is without gynecologic complaints and denies any postmenopausal bleeding. She has been off of HRT since 07/24. Review of Systems She has lost 7 pounds over the last year. She denies respiratory, cardiac and G.I. problems. Her gastric reflux seems to be controlled with medications. She denies maltreatment or problems with falling. : she denies any significant problems with urinary leakage. Past Medical History Past Medical History: Atrial Fibrillation, Cancer (Basal cell skin cancer), GERD /Reflux, Hyperlipidemia, Hypertension Additional Past Medical History / Comment(s): Hiatal hernia, diverticulosis, chronic low back pain. 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 History of Any Multi-Drug Resistant Organisms: None Reported Past Surgical History: Cholecystectomy, Orthopedic Surgery Additional Past Surgical History / Comment(s): 04/26/15 heart cath-normal, EGD , colonoscopies and once a polypectomy-benign, last colonoscopy was negative for any poylps 06/2011, basal cell skin cancer removal (nose), right bunionectomies, surgery shortened eyelids. Past Anesthesia/Blood Transfusion Reactions: No Reported Reaction Additional Past Anesthesia/Blood Transfusion Reaction / Comment(s): no blood transfusions Past Psychological History: No Psychological Hx Reported Additional Psychological History / Comment(s): She is independent. She uses no assistive device or home care agency. She can drive but perfers not to do so. 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 - Past Family History Father Additional Family Medical History / Comment(s): Parkinson's dx. Father is . Mother Family Medical History: Diabetes Mellitus, Thyroid Disorder Additional Family Medical History / Comment(s): Mother is alive and 93 yrs old. Daughter(s) Family Medical History: Cancer (Breast cancer) Medications and Allergies Home Medications Medication Instructions Recorded Confirmed Type Aspirin EC [Ecotrin Low Dose] 81 mg PO HS 04/25/15 07/27/18 History Cholecalciferol [Vitamin D3] 1,000 unit PO DAILY 04/25/15 07/27/18 History Multivitamins, Thera [Multivitamin 1 tab PO HS 04/25/15 07/27/18 History (formulary)] Omeprazole [PriLOSEC] 20 mg PO BID 04/25/15 07/27/18 History Atenolol [Tenormin] 12.5 mg PO HS 08/29/17 07/27/18 History Inulin/Chromium Picolinate [Fiber 2 tab PO HS 08/29/17 07/27/18 History Gummies Chew] L.acidoph,Paracasei, B.lactis 1 cap PO DAILY 08/29/17 07/27/18 History [Probiotic] Lisinopril 30 mg PO DAILY #30 tab 08/31/17 07/27/18 Rx Apixaban [Eliquis] PO BID 07/27/18 History Fluconazole [Diflucan] 200 mg PO DAILY PRN 07/27/18 07/27/18 History Hydrochlorothiazide [Hydrodiuril] 12.5 mg PO DAILY 07/27/18 07/27/18 History Levofloxacin [Levaquin] 250 mg PO DAILY PRN 07/27/18 07/27/18 History Meloxicam PO PRN 07/27/18 History Allergies Allergy/AdvReac Type Severity Reaction Status Date / Time erythromycin base Allergy Unknown Verified 07/27/18 10:22 [From Erythrocin] salsalate [From Disalcid] AdvReac Vomiting Verified 07/27/18 10:22 Sulfa (Sulfonamide AdvReac Vomiting Verified 07/27/18 10:22 Antibiotics) tobramycin AdvReac Vomiting Verified 07/27/18 10:22 Exam Vital Signs Temp Pulse BP 07/27/18 10:31 97.5 F L 56 L 131/81 Intake and Output 07/26/18 07/27/18 07/27/18 22:59 06:59 14:59 Other: Weight 96.615 kg Height 5'2", BMI 39.0. This is a well-developed well-nourished heavyset white female who is alert and oriented times 3 in no acute distress. HEENT: Within normal limits. NECK: Supple without mass or thyromegaly. CHEST AND LUNGS: Clear to auscultation. HEART: Regular rate and rhythm. BREASTS: Are without mass or discharge. AXILLARY EXAM: Negative for adenopathy. BACK: Negative for CVA tenderness. ABDOMEN: Soft, nontender, without palpable masses. PELVIC EXAM: Normal external genitalia with mild to moderate atrophy. Cervix and vagina appear normal with moderate atrophy. There is no unusual discharge. There is no evidence of prolapse. The uterus is midposition, nongravid size and nontender. There are no palpable adnexal masses or tenderness. RECTAL EXAM: rectovaginal exam is negative for mass or tenderness and is negative for occult blood. EXTREMITIES: Nontender. IMPRESSION: 1. 73-year-old menopausal female with normal gynecologic exam. 2. History of osteopenia status post one year use of Fosamax many years ago. PLAN: 1. Pap smear was performed. 2. Self breast awareness was discussed with the patient. 3. Screening mammogram was done on 07/22/2018 and was benign. 4. Osteoporosis prevention was discussed. Bone density testing was done on . We will plan on repeating the bone density test in 2 to 3 years. 5. She's planning to get her flu shot in the near future. 6. She will return in one year.
== END | disposition home or self-care (01) ==
LOC: WWCWWP 09:50
PROVIDERS: ATTEND Obstetrics & Gynecology
DX: Z53.9 Procedure and treatment not carried out, unspecified reason (principal)

== ENCOUNTER 2018-09-02 02:45 | Emergency (ER) | payer MEDICARE, BC ==
[2018-09-02 02:59] VITALS: TEMP 97.5
[2018-09-02 03:35] VITALS: RESP 16
--- NOTE | 2018-09-02 03:51 | ED ---
Chest Pain HPI - General Chief Complaint: Chest Pain Stated Complaint: CHEST PAIN Time Seen by Provider: 09/02/18 03:05 Source: patient Mode of arrival: ambulatory Limitations: no limitations - History of Present Illness MD Complaint: chest pain Onset/Timin -: hour(s) Onset: during rest Pain Location: substernal Pain Radiation: none Severity: moderate Quality: tightness Consistency: now resolved Improves With: nothing Worsens With: supine Anginal Symptoms: dyspnea Treatments Prior to Arrival: none - Related Data Home Medications Medication Instructions Recorded Confirmed Aspirin EC [Ecotrin Low Dose] 81 mg PO HS 04/25/15 07/27/18 Cholecalciferol [Vitamin D3] 1,000 unit PO DAILY 04/25/15 07/27/18 Multivitamins, Thera [Multivitamin 1 tab PO HS 04/25/15 07/27/18 (formulary)] Omeprazole [PriLOSEC] 20 mg PO BID 04/25/15 07/27/18 Atenolol [Tenormin] 12.5 mg PO HS 08/29/17 07/27/18 Inulin/Chromium Picolinate [Fiber 2 tab PO HS 08/29/17 07/27/18 Gummies Chew] L.acidoph,Paracasei, B.lactis 1 cap PO DAILY 08/29/17 07/27/18 [Probiotic] Apixaban [Eliquis] PO BID 07/27/18 Fluconazole [Diflucan] 200 mg PO DAILY PRN 07/27/18 07/27/18 Hydrochlorothiazide [Hydrodiuril] 12.5 mg PO DAILY 07/27/18 07/27/18 Levofloxacin [Levaquin] 250 mg PO DAILY PRN 07/27/18 07/27/18 Meloxicam PO PRN 07/27/18 Previous Rx's Medication Instructions Recorded Lisinopril 30 mg PO DAILY #30 tab 08/31/17 Allergies Allergy/AdvReac Type Severity Reaction Status Date / Time erythromycin base Allergy Unknown Verified 07/27/18 10:22 [From Erythrocin] salsalate [From Disalcid] AdvReac Vomiting Verified 07/27/18 10:22 Sulfa (Sulfonamide AdvReac Vomiting Verified 07/27/18 10:22 Antibiotics) tobramycin AdvReac Vomiting Verified 07/27/18 10:22 Review of Systems ROS Statement: Those systems with pertinent positive or pertinent negative responses have been documented in the HPI. ROS Other: All systems not noted in ROS Statement are negative. Constitutional: Denies: fever, chills Respiratory: Denies: cough, dyspnea Cardiovascular: Reports: chest pain. Denies: palpitations, edema, syncope Gastrointestinal: Denies: abdominal pain, nausea, vomiting, melena, hematochezia Genitourinary: Denies: dysuria, hematuria Musculoskeletal: Denies: back pain Skin: Denies: rash Neurological: Denies: headache, weakness, numbness EKG Findings - EKG Results: EKG: interpreted by ERMD, sinus rhythm, normal axis, normal QRS, normal ST/T, no acute changes EKG shows: bradycardia (Rate 55 bpm) Past Medical History Past Medical History: Atrial Fibrillation, Cancer, GERD/Reflux, Hyperlipidemia, Hypertension Additional Past Medical History / Comment(s): Hiatal hernia, diverticulosis, chronic low back pain. 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 History of Any Multi-Drug Resistant Organisms: None Reported Past Surgical History: Cholecystectomy, Orthopedic Surgery Additional Past Surgical History / Comment(s): 04/26/15 heart cath-normal, EGD , colonoscopies and once a polypectomy-benign, last colonoscopy was negative for any poylps 06/2011, basal cell skin cancer removal (nose), right bunionectomies, surgery shortened eyelids. Past Anesthesia/Blood Transfusion Reactions: No Reported Reaction Additional Past Anesthesia/Blood Transfusion Reaction / Comment(s): no blood transfusions Past Psychological History: No Psychological Hx Reported Smoking Status: Never smoker Past Alcohol Use History: None Reported Past Drug Use History: None Reported - Past Family History Daughter(s) Family Medical History: Cancer (Breast cancer) Father Additional Family Medical History / Comment(s): Parkinson's dx. Father is . Mother Family Medical History: Diabetes Mellitus, Thyroid Disorder Additional Family Medical History / Comment(s): Mother is alive and 93 yrs old. General Exam Limitations: no limitations General appearance: alert, in no apparent distress Head exam: Present: atraumatic, normocephalic Eye exam: Present: normal appearance. Absent: scleral icterus, conjunctival injection ENT exam: Present: normal oropharynx Respiratory exam: Present: normal lung sounds bilaterally. Absent: respiratory distress, wheezes, rales, rhonchi, stridor, chest wall tenderness Cardiovascular Exam: Present: normal rhythm, bradycardia (Rate 56 bpm), normal heart sounds. Absent: systolic murmur, diastolic murmur, rubs, gallop GI/Abdominal exam: Present: soft. Absent: distended, tenderness, guarding, rebound, mass Extremities exam: Present: normal inspection, normal capillary refill. Absent: pedal edema, calf tenderness Back exam: Present: normal inspection. Absent: CVA tenderness (R), CVA tenderness (L) Neurological exam: Present: alert Skin exam: Present: warm, dry, intact, normal color. Absent: rash Course Vital Signs 09/02/18 09/02/18 02:57 03:33 Temperature 97.5 F L Pulse Rate 72 64 Respiratory 18 16 Rate Blood Pressure 162/94 167/85 O2 Sat by Pulse 96 96 Oximetry Chest Pain MDM - MDM I discussed with this patient staying for further telemetry monitoring and repeat cardiac enzymes, but the patient states that she has remained symptom- free and she does want to go home. She does understand there is a small risk of missing an IN. She does agree to return if any symptoms recur. She states she has pre-existing appointment with cardiology for Wednesday. She'll keep that appointment. We discussed return parameters. Disposition Clinical Impression: Chest pain Disposition: HOME SELF-CARE Condition: Fair Instructions: Chest Pain (ED) Is patient prescribed a controlled substance at d/c from ED?: No Referrals: Fernandez Trujillo DO [Primary Care Provider] - 1-2 days Brady Romero MD [STAFF PHYSICIAN] - 1-2 days
[2018-09-02 03:53] LABS: Basophils % (A) 1 %; Eosinophils # (A) 0.2 k/uL (0-0.7); Eosinophils % (A) 3 %; HCT 40.3 % (34.0-46.0); HGB 13.4 gm/dL (11.4-16.0); Lymphocytes # (A) 3.1 k/uL (1.0-4.8); Lymphocytes % (A) 37 %; MCH 30.1 pg (25.0-35.0); MCHC 33.2 g/dL (31.0-37.0); MCV 90.7 fL (80.0-100.0); Mean Platelet Volume 6.6; Monocytes # (A) 0.6 k/uL (0-1.0); Monocytes % (A) 7 %; Neutrophils # (A) 4.3 k/uL (1.3-7.7); Neutrophils % (A) 51 %; Platelet Count 209 k/uL (150-450); RBC 4.44 m/uL (3.80-5.40); RDW 12.6 % (11.5-15.5); WBC 8.4 k/uL (3.8-10.6)
--- NOTE | 2018-09-02 03:53 | XR ---
EXAMINATION TYPE: XR chest 1V portable DATE OF EXAM: 09/02/2018 COMPARISON: 08/29/2017 HISTORY: Chest pain TECHNIQUE: Single frontal view of the chest is obtained. FINDINGS: There is no heart failure nor confluent pneumonic infiltrate. Costophrenic angles are chris r. There are chest leads. IMPRESSION: No active cardiopulmonary disease. No change.
[2018-09-02 04:01] LABS: Albumin 3.7 g/dL (3.5-5.0); Calcium 9.8 mg/dL (8.4-10.2); Magnesium 1.8 mg/dL (1.6-2.3); Potassium 3.8 mmol/L (3.5-5.1); Total Bilirubin 0.4 mg/dL (0.2-1.3); Total Protein 6.8 g/dL (6.3-8.2)
[2018-09-02 04:16] LABS: Creatine Kinase 71 U/L (30-135)
[2018-09-02 04:18] LABS: D-Dimer 0.28 mg/L FEU (<0.60); INR 1.1 (<1.2); Partial Thromboplastin Time 23.3 sec (22.0-30.0); Prothrombin Time 10.6 sec (9.0-12.0)
[2018-09-02 04:29] LABS: Creatine Kinase MB 1.4 ng/mL (0.0-2.4); Troponin I <0.012 ng/mL (0.000-0.034)
[2018-09-02 06:50] VITALS: BP 131/62; PULSE 55
== END 2018-09-02 06:49 | disposition home or self-care (01) ==
LOC: EC 02:45
DX: R07.2 Precordial pain (principal); R06.00 Dyspnea, unspecified; I48.91 Unspecified atrial fibrillation; K21.9 Gastro-esophageal reflux disease without esophagitis; I10 Essential (primary) hypertension; Z95.818 Presence of other cardiac implants and grafts; Z85.828 Personal history of other malignant neoplasm of skin; Z79.82 Long term (current) use of aspirin; Z79.01 Long term (current) use of anticoagulants; Z79.899 Other long term (current) drug therapy; Z88.1 Allergy status to other antibiotic agents; Z88.6 Allergy status to analgesic agent; Z88.2 Allergy status to sulfonamides
CPT/HCPCS: 36415; 71045; 80053; 82550; 82553; 83735; 84484; 85025; 85379; 85610; 85730; 93005; 99285

== ENCOUNTER → 2019-08-09 | Outpatient (CLI) | payer MEDICARE, BC ==
[2019-08-09 10:47] VITALS: BP 134/79; PULSE 54; RESP 18; TEMP 97.7; BMI 39.1
--- NOTE | 2019-08-09 11:32 | P.HPOB ---
History of Present Illness H&P Date: 08/09/19 Chief Complaint: The patient is here for her routine gynecologic exam and ma mmogram. This is a 74-year-old with an LMP of 1991. The patient is without gynecologic complaints and denies any postmenopausal bleeding. She has been off of HRT since July 2016. Review of Systems Weight has been stable. She denies respiratory, cardiac and G.I. problems. She denies maltreatment or problems with falling. : she denies any significant problems with urinary leakage. Past Medical History Past Medical History: Atrial Fibrillation, Cancer, GERD/Reflux, Hyperlipidemia, Hypertension Additional Past Medical History / Comment(s): Basal cell skin cancer. Hiatal hernia, diverticulosis, chronic low back pain. PAST WELLNESS MANAGER HISTORY: She has no history of STDs. History of Any Multi-Drug Resistant Organisms: None Reported Past Surgical History: Cholecystectomy, Orthopedic Surgery Additional Past Surgical History / Comment(s): 04/26/15 heart cath-normal, EGD, colonoscopies and once a polypectomy-benign, last colonoscopy was negative for any poylps 06/2011, basal cell skin cancer removal (nose), right bunionectomies, surgery shortened eyelids. Past Anesthesia/Blood Transfusion Reactions: No Reported Reaction Additional Past Anesthesia/Blood Transfusion Reaction / Comment(s): no blood transfusions Past Psychological History: No Psychological Hx Reported Additional Psychological History / Comment(s): She is independent. She uses no assistive device or home care agency. She can drive but perfers not to do so. Smoking Status: Never smoker Past Alcohol Use History: None Reported Past Drug Use History: None Reported Additional History: She has been since 1965 and is sexually active. She is a retired RN. - Past Family History Daughter(s) Family Medical History: Cancer Additional Family Medical History / Comment(s): Breast cancer. Father Additional Family Medical History / Comment(s): Parkinson's dx. Father is . Mother Family Medical History: Diabetes Mellitus, Thyroid Disorder Medications and Allergies Home Medications Medication Instructions Recorded Confirmed Type Aspirin EC [Ecotrin Low Dose] 81 mg PO HS 04/25/15 08/09/19 History Cholecalciferol [Vitamin D3 (25 1,000 unit PO DAILY 04/25/15 08/09/19 History Mcg = 1000 Iu)] Multivitamins, Thera [Multivitamin 1 tab PO HS 04/25/15 08/09/19 History (formulary)] Omeprazole [PriLOSEC] 20 mg PO BID 04/25/15 08/09/19 History Atenolol [Tenormin] 12.5 mg PO HS 08/29/17 08/09/19 History Inulin/Chromium Picolinate [Fiber 2 tab PO HS 08/29/17 08/09/19 History Gummies Chew] L.acidoph,Paracasei, B.lactis 1 cap PO DAILY 08/29/17 08/09/19 History [Probiotic] Lisinopril 30 mg PO DAILY #30 tab 08/31/17 08/09/19 Rx Apixaban [Eliquis] 1 tab PO BID 07/27/18 08/09/19 History Fluconazole [Diflucan] 200 mg PO DAILY PRN 07/27/18 08/09/19 History Hydrochlorothiazide [Hydrodiuril] 12.5 mg PO DAILY 07/27/18 08/09/19 History Levofloxacin [Levaquin] 250 mg PO DAILY PRN 07/27/18 08/09/19 History Meloxicam 1 tab PO DAILY PRN 07/27/18 08/09/19 History Allergies Allergy/AdvReac Type Severity Reaction Status Date / Time erythromycin base Allergy Unknown Verified 08/09/19 10:49 [From Erythrocin] rivaroxaban [From Xarelto] Allergy Unknown Unverified 08/09/19 10:49 sulfamethoxazole Allergy Nausea Unverified 08/09/19 10:49 [From Bactrim] trimethoprim [From Bactrim] Allergy Nausea Unverified 08/09/19 10:49 salsalate [From Disalcid] AdvReac Vomiting Verified 08/09/19 10:49 Sulfa (Sulfonamide AdvReac Vomiting Verified 08/09/19 10:49 Antibiotics) tobramycin AdvReac Vomiting Verified 08/09/19 10:49 Exam Vital Signs Temp Pulse Resp BP Pulse Ox 08/09/19 10:40 97.7 F 54 L 18 134/79 93 L Intake and Output 08/08/19 08/09/19 08/09/19 22:59 06:59 14:59 Other: Weight 97.069 kg Height 5 feet 2 inches, weight 214 pounds, BMI 39.1. This is a well-developed well-nourished heavyset white female who is alert and oriented times 3 in no acute distress. HEENT: Within normal limits. NECK: Supple without mass or thyromegaly. CHEST AND LUNGS: Clear to auscultation. HEART: Regular rate and rhythm. BREASTS: Are without mass or discharge. AXILLARY EXAM: Negative for adenopathy. BACK: Negative for CVA tenderness. ABDOMEN: Soft, nontender, without palpable masses. PELVIC EXAM: Normal external genitalia with mild to moderate atrophy. Cervix and vagina appear normal and mild atrophy. There is no unusual discharge. There is no evidence of prolapse. The uterus is midposition, nongravid size and nontender. There are no palpable adnexal masses or tenderness. RECTAL EXAM: Rectovaginal exam is negative for mass or tenderness and is negative for occult blood. EXTREMITIES: Nontender. IMPRESSION: 1. 74-year-old menopausal female with normal gynecologic exam. 2. History of osteopenia status post 1 year use of Fosamax many years ago. PLAN: 1. Pap smear was deferred since she had a normal one on 07/27/2018 and 04/15/2016. This will be repeated in 1-2 years. If that one is negative, consider discontinuing Pap smears since we will be able to document adequate screening. 2. Self breast awareness was discussed with the patient. 3. Screening mammogram will be done today. 4. Osteoporosis prevention was discussed. I have stressed the importance of adequate calcium, vitamin D and regular exercise. Recommended amounts of calcium and vitamin D were also discussed. We will plan on repeating bone density testing in 1-2 years. 5. She is planning to get her flu shot in the near future. 6.The patient was advised to return in 1-2 years for her well woman examination.
--- NOTE | 2019-08-11 11:50 | MM ---
Reason for exam: screening (asymptomatic). Last mammogram was performed 1 year and 1 month ago. History: Patient is postmenopausal and has history of other cancer at age 54. Family history of breast cancer in daughter at age 45. Took progesterone for 17 years beginning at age 52. Physical Findings: A clinical breast exam by your physician is recommended on an annual basis and results should be correlated with mammographic findings. MG 3D Screening Mammo W/Cad Bilateral CC and MLO view(s) were taken. Prior study comparison: July 22, 2018, bilateral MG 3d screening mammo w/cad. July 21, 2017, bilateral MG 3d screening mammo w/cad. The breast tissue is heterogeneously dense. This may lower the sensitivity of mammography. No significant changes when compared with prior studies. ASSESSMENT: Negative, BI-RAD 1 RECOMMENDATION: Routine screening mammogram of both breasts in 1 year.
== END | disposition home or self-care (01) ==
LOC: WWCWWP 10:30
PROVIDERS: ATTEND Obstetrics & Gynecology
DX: Z12.31 Encounter for screening mammogram for malignant neoplasm of breast (principal); Z78.0 Asymptomatic menopausal state; Z85.89 Personal history of malignant neoplasm of other organs and systems; Z80.3 Family history of malignant neoplasm of breast
CPT/HCPCS: 77063; 77067

== ENCOUNTER → 2020-07-03 | Outpatient (CLI) | payer MEDICARE, BC ==
--- NOTE | 2020-07-03 12:13 | XR ---
EXAMINATION TYPE: XR chest 2V DATE OF EXAM: 07/03/2020 COMPARISON: 09/02/2018 HISTORY: Shortness of breath TECHNIQUE: Frontal and lateral views of the chest are obtained. FINDINGS: Scattered senescent parenchymal changes noted. Hyperinflation compatible with COPD. No evidence for infiltrate. No evidence for atelectasis. Heart size is stable. Mediastinal structures are stable and grossly unremarkable. No evidence for hilar prominence. Degenerative changes dorsal spine. IMPRESSION: 1. No evidence for acute pulmonary disease.
== END | disposition home or self-care (01) ==
LOC: RADXRMAIN 11:48
PROVIDERS: ATTEND Family Medicine
DX: R05 Cough (principal)
CPT/HCPCS: 71046

== ENCOUNTER → 2020-09-02 | Outpatient (CLI) | payer MEDICARE, BC ==
[2020-09-02 13:36] VITALS: BP 161/95; PULSE 67; RESP 14; TEMP 97.9
--- NOTE | 2020-09-02 13:45 | P.PAINCN ---
History of Present Illness - Reason for Consult Consult date: 09/02/20 - Chief Complaint Low back pain - History of Present Illness Anayeli is 75-year-old female presents today as a new patient consult from Dr. condon's office. She had bilateral lumbar medial branch blocks which reported excellent relief for about 5 days each time. She had 2 injections at the L2-L3, L3-L4, L4-L5 levels. She reports that injections were significant helpful. Princess questions about the radio frequency ablation. Since Dr. Novak left they try to refer her to sign a normal she did not want to go that far. She reports that she has pain across the low back without any radiation to legs for chest pain with standing for long present time or tries to walk for long periods of time. She is unable to stand for very long at the grocery store or in the kitchen. She reports never had any back surgery. She denies any lower extremity weakness numbness tingling. She has some debility secondary to low back pain. She tries to do much as possible. She has a normal MRI which shows some slight scoliosis as well as facet joint arthropathy. Past Medical History Past Medical History: Atrial Fibrillation, Cancer, GERD/Reflux, Hyperlipidemia, Hypertension, Musculoskeletal Disorder, Osteoarthritis (OA) Additional Past Medical History / Comment(s): Basal cell skin cancer. Hiatal hernia, diverticulosis, chronic low back pain. History of Any Multi-Drug Resistant Organisms: None Reported Past Surgical History: Cholecystectomy, Heart Catheterization, Orthopedic S urgery Additional Past Surgical History / Comment(s): 04/26/15 heart cath-normal, EGD, colonoscopies, basal cell skin cancer removal (nose), right bunionectomies, blepharoplasty Past Anesthesia/Blood Transfusion Reactions: No Reported Reaction, Family History of Problems w/ Anesthesia Additional Past Anesthesia/Blood Transfusion Reaction / Comm: no blood transfusions, daughter has trouble waking up after surg-told to have sleep study Past Psychological History: No Psychological Hx Reported Additional Psychological History / Comment(s): She is independent. She uses no assistive device or home care agency. She can drive but perfers not to do so. Smoking Status: Never smoker Past Alcohol Use History: None Reported Past Drug Use History: None Reported - Past Family History Daughter(s) Family Medical History: Cancer Additional Family Medical History / Comment(s): Breast cancer. Father Additional Family Medical History / Comment(s): Parkinson's dx. Father is . Mother Family Medical History: Diabetes Mellitus, Thyroid Disorder Additional Family Medical History / Comment(s): Mother is alive and 93 yrs old. Medications and Allergies Home Medications Medication Instructions Recorded Confirmed Type Aspirin EC [Ecotrin Low Dose] 81 mg PO HS 04/25/15 08/30/20 History Cholecalciferol [Vitamin D3 (25 1,000 unit PO DAILY 04/25/15 08/30/20 History Mcg = 1000 Iu)] Multivitamins, Thera [Multivitamin 1 tab PO HS 04/25/15 08/30/20 History (formulary)] Omeprazole [PriLOSEC] 20 mg PO BID 04/25/15 08/30/20 History Inulin/Chromium Picolinate [Fiber 2 tab PO HS 08/29/17 08/30/20 History Gummies Chew] L.acidoph,Paracasei, B.lactis 1 cap PO DAILY 08/29/17 08/30/20 History [Probiotic] atenoloL [Tenormin] 12.5 mg PO HS 08/29/17 08/30/20 History lisinopriL 30 mg PO DAILY #30 tab 08/31/17 08/30/20 Rx Apixaban [Eliquis] 5 mg PO BID 07/27/18 08/30/20 History ALPRAZolam [Xanax] 0.25 mg PO BID PRN 08/30/20 08/30/20 History Montelukast [Singulair] 10 mg PO DAILY 08/30/20 08/30/20 History Allergies Allergy/AdvReac Type Severity Reaction Status Date / Time erythromycin base Allergy burning Verified 08/30/20 12:44 [From Erythrocin] rivaroxaban [From Xarelto] Allergy blood in Unverified 08/30/20 12:25 urine sulfamethoxazole Allergy Nausea Unverified 08/30/20 12:24 [From Bactrim] trimethoprim [From Bactrim] Allergy Nausea Unverified 08/30/20 12:24 salsalate [From Disalcid] AdvReac Vomiting Verified 08/30/20 12:24 Sulfa (Sulfonamide AdvReac Vomiting Verified 08/30/20 12:24 Antibiotics) tobramycin AdvReac Vomiting Verified 08/30/20 12:44 Physical Exam Vitals: Vital Signs Temp Pulse Resp BP Pulse Ox 09/02/20 13:30 97.9 F 67 14 161/95 97 General: Awake and alert oriented 3 no distress Respiratory exam: No audible wheezing no accessory muscle usage Cardiovascular exam: regular rate, palpable bilateral pulses, no lower extremity edema Abdominal exam: No distention nontender to palpation Cervical spine: Normal alignment, Spurling's negative, facet loading negative, Prop Making Supervisor strength is 5/5, cruz negative Lumbar spine: Loss of lumbar lordosis, forward flexed body position, dextroscoliosis, tender to palpation over bilateral paraspinal muscles, facet loading is positive bilaterally. Straight leg raise is negative. Limited range of motion due to pain with flexion, extension and side bending. Sacroiliac joints: Nontender to palpation, FNIA is negative, Gaenselon negative Neuro exam: Normal sensation in bilateral upper extremities, deep tendon reflexes are 2+ bilateral upper extremities. Normal sensation in bilateral lower extremities. Deep tendon reflexes are 2+ in lower extremities Psych exam: Cooperative, appropriate mood Assessment and Plan Assessment: Lumbar spondylosis without myelopathy Scoliosis Plan: Given the patient's good results of the diagnostic testing will move forward with bilateral lumbar radiofrequency ablation of the L2-3 and L3-L4 levels. We 'll do that on the same day. She is on eliquis and wanting to stop it for 3 days after receiving Clearance. I like to do both sides on same day because she will be off of the blood thinners without stopping it multiple times in one month. PQRS Measure Charge Sheet Measure #130: Documentation of Current Meds in Medical Chart: Patient's medications documented in chart Measure #226: Tobacco Use: Screen & Cessation Intervention: Pt not a tobacco user Measure #111: Pneumonia Vaccination: Pneumococcal vaccine administered or previously received Measure #47: Advance Care Plan: Advance care planning discussed & documented, plan or surrogate given Measure #412: Opioid Treatment Agreement: No documentation of signed opioid treatment agreement Measure #408: Opioid Therapy Follow-up Evaluation: Patient had NO f/u eval minimum every 3 months during opioid therapy Measure #317: Preventitive Care & Scrn High Bld Press & F/U: Normal blood pressure, f/u not required Measure #128: Body Mass Index (BMI) Screening & Follow-up: BMI documented ABOVE normal parameters - f/u documented Measure #131: Pain Assessment & Follow-up: Pain positive & plan documented Measure #431: Unhealthy Alcohol Use Preventative Care & Scrn: Patient not identified as an unhealthy alcohol user PQRS Narrative: Smoking Status Never smoker Blood Pressure 161/95 Pain Intensity [Lower Back] 0 Scale Used Numeric (1 - 10) Hx Alcohol Use (MH) No Home Medications: Ambulatory Orders Aspirin EC [Ecotrin Low Dose] 81 mg PO HS 04/25/15 Cholecalciferol [Vitamin D3 (25 Mcg = 1000 Iu)] 1,000 unit PO DAILY 04/25/15 Multivitamins, Thera [Multivitamin (formulary)] 1 tab PO HS 04/25/15 Omeprazole [PriLOSEC] 20 mg PO BID 04/25/15 Inulin/Chromium Picolinate [Fiber Gummies Chew] 2 tab PO HS 08/29/17 L.acidoph,Paracasei, B.lactis [Probiotic] 1 cap PO DAILY 08/29/17 atenoloL [Tenormin] 12.5 mg PO HS 08/29/17 lisinopriL 30 mg PO DAILY #30 tab 08/31/17 Apixaban [Eliquis] 5 mg PO BID 07/27/18 ALPRAZolam [Xanax] 0.25 mg PO BID PRN 08/30/20 Montelukast [Singulair] 10 mg PO DAILY 08/30/20
== END | disposition home or self-care (01) ==
LOC: PNWHC3 13:04
PROVIDERS: ATTEND Hospitalist
DX: M47.816 Spondylosis without myelopathy or radiculopathy, lumbar region (principal); M41.9 Scoliosis, unspecified; K21.9 Gastro-esophageal reflux disease without esophagitis; E78.5 Hyperlipidemia, unspecified; I10 Essential (primary) hypertension; I48.91 Unspecified atrial fibrillation; Z88.2 Allergy status to sulfonamides; Z88.1 Allergy status to other antibiotic agents; Z88.6 Allergy status to analgesic agent; Z79.899 Other long term (current) drug therapy; Z79.01 Long term (current) use of anticoagulants; Z79.3 Long term (current) use of hormonal contraceptives; Z79.82 Long term (current) use of aspirin
CPT/HCPCS: 99211

== ENCOUNTER → 2020-09-20 | Day surgery (SDC) | payer MEDICARE, BC ==
[2020-09-18 15:33] VITALS: BMI 37.5
[~2020-09-20] MED LIST: IV FLUID CONTINUATION 400 ML IV ONE; LACTATED RINGERS 1,000 ML IV SCH; MIDAZOLAM 2 MG/2 ML VIAL ONE; ROPIVACAINE 5MG/ML 20ML VIAL ONE; TRIAMCINOLONE ACETONIDE 40 MG/ML 1 ML VIAL ONE
[2020-09-20 14:14] VITALS: TEMP 98
--- NOTE | 2020-09-20 15:50 | P.PCN ---
Date of Procedure: 09/20/20 Surgeon: Bijal Mckenna Pathology: none sent Condition: stable Disposition: PACU Description of Procedure: PREOPERATIVE DIAGNOSIS: Lumbar spondylosis without myelopathy, morbid obesity POSTOPERATIVE DIAGNOSIS: Lumbar spondylosis without myelopathy,morbid obesity PROCEDURES : Bilateral Radiofrequency thermocoagulation L4-L5, and L5-S1 medial branch, with fluoroscopic guidance ANESTHESIA: Local with lidocaine 1% and IV moderate sedation by anesthesia services Physician:Bijal Mckenna MD EBL: Minimal PROCEDURE INDICATION: The patient with low back pain secondary to lumbar facet arthropathy who had more than 50% relief of her pain with previous diagnostic lumbar medial branch block with bupivacaine. PROCEDURE DESCRIPTION / TECHNIQUE: The patient was seen and identified in the preoperative area. Risks, benefits, complications, including but not limited to risk of infection ,bleeding , allergic reactions to the medications and no complete pain relief , and alternatives were discussed with the patient, the patient agreed to proceed with the procedure and signed the consent. IV was started. Vital signs remained stable throughout the procedure. Patient was taken to the OR and time out was completed. The patient was placed in the prone position on the procedure table. The lumber area was prepped and draped in the usual sterile fashion. . Vital signs were closely monitored during the procedure .IV sedation was used during the procedure to decrease patients anxiety. The target points were identified as follows: For the L5-S1 level which corresponds to the dorsal ramus of L5 the target point was at the superior medial aspect of the sacral ala on the ---Right- side of the spine on the AP view of fluoroscopy and for the L3, and L4 medial branches the target points were at the connection between the transverse process and the superior articular process of L4, and L5 vertebra respectively on the -Right--- oblique view of fluoroscopy. skin was marked, and localized with 1% lidocaineat these points. Subsequently, an 18 [id number] radiofrequency needles with a 10-mm curved active tips were advanced guided by fluoroscopy to each of the target points mentioned above in a superior medial direction to get the active tips as parallel as possible to the medial branches tracks. AP, oblique, and lateral views of fluoroscopy were used to verify needle tips position. Each level then underwent motor testing at 2.5 Hz and 0 to 3 volt with local stimulation, but no radicular symptoms down the legs. I then gave 0.5 MLS of lidocaine 4% in each needle before starting radiofrequency thermocoagulation at 80 degrees celsius for 90 seconds. After the RFA was done I then injected 1 ml of PF Marcaine 0.5%(3 mls) with 40 mg of Kenalog. The procedure was repeated on the left side in the same manner.. The total dose of steroids given and this procedure was 40 mg of Kenalog only. At the end of the procedure, the skin was cleansed and bandages were applied. A copy of needle placement fluoroscopy was saved on the C-arm machine. The patient will resume her eliquis for a history of A. monica [email or web address]. COMPLICATIONS: No acute complications. A picture of the final needle placement was saved to the C-arm machine. DISPOSITION / PLANS: The patient was placed in a supine position and transferred to the recovery area in a stable condition for observation and was discharged from the recovery room after meeting discharge criteria. Home discharge instructions given to the patient by the staff. The patient was reexamined prior to discharge. The patient will schedule a follow up in the clinic in 2-4 weeks.
[2020-09-20 16:16] VITALS: RESP 17
--- NOTE | 2020-09-20 16:50 | FL ---
Fluoroscopy HISTORY: Pain 27 seconds fluoroscopy time supplied to the referring clinician. 3 intraoperative C-arm images docum ent the procedure. See dictated report from anesthesia.
[2020-09-20 18:07] VITALS: BP 141/86; PULSE 71
== END ==
LOC: ORPAIN 13:06
PROVIDERS: ATTEND Anesthesiology
DX: M47.816 Spondylosis without myelopathy or radiculopathy, lumbar region (principal); E66.01 Morbid (severe) obesity due to excess calories; I48.91 Unspecified atrial fibrillation; I10 Essential (primary) hypertension; K21.9 Gastro-esophageal reflux disease without esophagitis; Z68.36 Body mass index [BMI] 36.0-36.9, adult; Z88.2 Allergy status to sulfonamides; Z79.01 Long term (current) use of anticoagulants; Z79.82 Long term (current) use of aspirin; Z79.899 Other long term (current) drug therapy; Z88.1 Allergy status to other antibiotic agents; Z88.8 Allergy status to other drugs, medicaments and biological substances; Z88.6 Allergy status to analgesic agent
CPT/HCPCS: 64635; 64636; J2250; J3301; J2795

== ENCOUNTER → 2020-10-16 | Outpatient (CLI) | payer MEDICARE, BC ==
[2020-10-16 12:40] VITALS: BP 161/85; PULSE 58; RESP 16; TEMP 97.6
--- NOTE | 2020-10-16 13:10 | P.PN ---
Subjective Progress Note Date: 10/16/20 This is a follow visit for this 75 years old female with a chronic history of severe low back pain , she is diagnosed with lumbar spondylosis with lumbar facet arthropathy without myelopathy, and lumbar degenerative disc disease, multilevel, recently we have been RFA of the medial branch lumbar area, vik terrazas she is complaining of severe low back pain is constant and increases with any activity, interfere with activity of daily livings, she has difficulty moving around and ambulating secondary to pain testing of the pain, she denies any radicular symptoms, she denies any motor or sensory deficits, she denies any fever or night sweats. She denies any change in the bowel movement or urination Objective - Vital Signs Vital signs: Vital Signs Temp 97.6 F 10/16/20 12:28 Pulse 58 L 10/16/20 12:28 Resp 16 10/16/20 12:28 BP 161/85 10/16/20 12:28 Pulse Ox 97 10/16/20 12:28 - Exam Physical Examinations : -Constitutiona : Cooperative , not in acute distress . -HEENT : nech : supple , no Lymphadenopathy , normal thyroid size . : eyes : no ptosis , no icterus, no photophobia . - neurologic : Cranial nerve II to XII intact , no focal neurological deffecit . -psychatric : alert , oriented X 3 , appropriate affect , intact judgment and insight . -Lymphatic : no Lymphadenopathy . - musculoskeltal : Lumber spine moter stegnth lower extremities ,thigh and legs 5/5 Right side , 5/5 Left side deep tendon reflexes : normal Knee Jerk , normal ankle Jerk lumber facet Loading Test =positive Right , positive Left Range of motion of the lumbar spine Flexion 30 degrees, extension 10 degrees strait leg raising test = negative bilaterally Fabere test= negative bilaterally tenderness over the Sacroiliac joint on the Right , and Left sides MRI of the lumbar spine= multilevel lumbar degenerative disc disease and lumbar facet arthropathy Assessment and Plan Plan: Assessment and plan=1-lumbar spondylosis with lumbar facet arthropathy without myelopathy. 2-lumbar degenerative disc disease. Patient continued to have severe low back pain after RFA of the medial branch lumbar area, she could benefit from lumbar epidural steroid injections under fluoroscopy guidance at L4-L5 or L5-S1 PQRS Measure Charge Sheet Measure #130: Documentation of Current Meds in Medical Chart: Patient's medications documented in chart Measure #226: Tobacco Use: Screen & Cessation Intervention: Pt not a tobacco user Measure #111: Pneumonia Vaccination: Pneumococcal vaccine administered or previously received Measure #47: Advance Care Plan: Advance care planning discussed & documented, plan or surrogate given Measure #412: Opioid Treatment Agreement: No documentation of signed opioid treatment agreement Measure #408: Opioid Therapy Follow-up Evaluation: Patient had NO f/u eval minimum every 3 months during opioid therapy Measure #317: Preventitive Care & Scrn High Bld Press & F/U: Elevated blood pressure 161/85 she will follow with the primary care Measure #128: Body Mass Index (BMI) Screening & Follow-up: BMI documented ABOVE normal parameters - f/u documented Measure #131: Pain Assessment & Follow-up: Pain positive & plan documented Measure #431: Unhealthy Alcohol Use Preventative Care & Scrn: Patient not identified as an unhealthy alcohol user PQRS Narrative: Time with Patient: Less than 30
== END | disposition home or self-care (01) ==
LOC: PNWHC3 11:59
PROVIDERS: ATTEND Specialist
DX: M51.36 Other intervertebral disc degeneration, lumbar region (principal); M47.816 Spondylosis without myelopathy or radiculopathy, lumbar region
CPT/HCPCS: 99211

== ENCOUNTER → 2020-10-24 | Outpatient (CLI) | payer MEDICARE, BC ==
--- NOTE | 2020-10-25 14:37 | MM ---
Reason for exam: screening (asymptomatic). Last mammogram was performed 1 year and 2 months ago. History: Patient is postmenopausal and has history of other cancer at age 54. Family history of breast cancer in daughter at age 45. Took progesterone for 17 years beginning at age 52. Physical Findings: A clinical breast exam by your physician is recommended on an annual basis and results should be correlated with mammographic findings. MG 3D Screening Mammo W/Cad Bilateral CC and MLO view(s) were taken. Prior study comparison: August 09, 2019, bilateral MG 3d screening mammo w/cad. July 22, 2018, bilateral MG 3d screening mammo w/cad. The breast tissue is heterogeneously dense. This may lower the sensitivity of mammography. No significant changes when compared with prior studies. ASSESSMENT: Benign, BI-RAD 2 RECOMMENDATION: Routine screening mammogram of both breasts in 1 year.
== END | disposition home or self-care (01) ==
LOC: RADMAMWWP 09:19
PROVIDERS: ATTEND Family Medicine
DX: Z12.31 Encounter for screening mammogram for malignant neoplasm of breast (principal)
CPT/HCPCS: 77063; 77067

== ENCOUNTER 2020-11-15 09:04 | Day surgery (SDC) | payer MEDICARE, BC ==
[2020-11-12 09:12] VITALS: BMI 37.5
[~2020-11-15 09:04] MED LIST changes: -IV FLUID CONTINUATION 400 ML IV ONE; -MIDAZOLAM 2 MG/2 ML VIAL ONE; -ROPIVACAINE 5MG/ML 20ML VIAL ONE; -TRIAMCINOLONE ACETONIDE 40 MG/ML 1 ML VIAL ONE
[2020-11-15 09:49] VITALS: TEMP 97.5
[2020-11-15] MEDS ORDERED: TRIAMCINOLONE ACETONIDE 40 MG/ML 1 ML VIAL ONE (10:22)
[2020-11-15] MEDS ORDERED: IOPAMIDOL M200 10 ML VIAL ONE (10:22)
[2020-11-15] MEDS ORDERED: ROPIVACAINE 5MG/ML 20ML VIAL ONE (10:22)
--- NOTE | 2020-11-15 10:39 | P.PCN ---
Date of Procedure: 11/15/20 Surgeon: Bijal Mckenna Pathology: none sent Condition: stable Disposition: PACU Description of Procedure: PREOPERATIVE DIAGNOSIS: Lumber Degenerative Disc Diseases. POSTOPERATIVE DIAGNOSIS: Lumbar Degenerative Disc Diseases PROCEDURE 1. Lumbar epidural steroid injection under fluoroscopic guidance at the L5-S1 level in the midline approach. 2. Lumbar epidurogram. ANESTHESIA: Local with 1% lidocaine only. EBL: Minimal PROCEDURE INDICATION: The patient with low back pain and radiculitis symptoms unresponsive to conservative treatment. Fluoroscopy was used to optimize visualization of the needle placement and to maximize safety. PROCEDURE DESCRIPTION / TECHNIQUE: The patient was seen and identified in the preoperative area. Risks, benefits, complications including but not limited to infections ,bleeding ,allergic reaction to the medications ,nerve damage and not complete pain relief , and alternatives were discussed with the patient. The patient agreed to proceed with the procedure and signed the consent. IV was started, and vital signs were stable. Patient was taken to the OR and time out was completed. The patient was placed in the prone position on procedure table and a pillow was placed under the abdomen to reduce lumbar lordosis. The lumbosacral area was prepped and draped in the usual sterile fashion with ChloraPrep.Patient was closely monitored during the procedure. Conscious sedation was used during the procedure to decrease patients anxiety. Vital signs were monitered during the entire procedure. Using anterior-posterior fluoroscopy, the L5-S1 interlaminar space was identified and the skin over this site was marked and then infiltrated with 1% lidocaine subcutaneously. Subsequently, a 20-gauge Tuohy epidural needle was inserted and advanced toward the epidural space using the Loss of resistance to air technique and guided by AP and lateral fluoroscopy. The correct needle position in the epidural space was verified with the injection of 1 mL of the water soluble contrast dye Omnipaque 180 contrast and observing an excellent epidurogram with the epidural spread of the dye, after negative aspiration for blood and CSF and in the absence of paresthesias. Again after negative aspiration, a 8 ml mixture containing 80 mg of Kenalog and 5 ml of preservative free Normal Saline, and 2 ml of preservative free ropivacaine 0.5% solution was injected and a washout of epidurogram was seen. Needle was withdrawn intact, skin was cleansed, and bandages were applied. patient tolerated procedure well and was transferred to PACU in stable condition.A copy of the needle placement picture was saved to the fluoroscopy machine. COMPLICATIONS: None DISPOSITION / PLANS: The patient was placed in a supine position and transferred to the recovery area in a stable condition for observation. There was no evidence of lower extremity motor or sensory deficit after the procedure. Patient was discharged from the recovery room after meeting discharge criteria. Home discharge instructions were given to the patient by the staff. The patient was reexamined prior to discharge. The patient will schedule a follow up in the clinic in 2-4 weeks.
[2020-11-15 10:47] VITALS: RESP 18
--- NOTE | 2020-11-15 10:48 | FL ---
EXAMINATION TYPE: FL guided pain mgmt statistic DATE OF EXAM: 11/15/2020 CLINICAL HISTORY: Low back pain. TECHNIQUE: Fluoroscopy. COMPARISON: None. FINDINGS: Fluoroscopic guidance was provided during pain relief procedure performed by Dr. Mckenna . A total of 8 seconds of fluoroscopic time was utilized during the procedure and two spot images are acquired. Images acquired shows needle localization at level of lumbosacral junction from posterior approach with contrast injection. IMPRESSION: As Above.
[2020-11-15 11:00] VITALS: BP 145/78; PULSE 78
== END 2020-11-15 11:20 | disposition home or self-care (01) ==
LOC: ORPAIN 09:04
PROVIDERS: ATTEND Anesthesiology
DX: M51.17 Intervertebral disc disorders with radiculopathy, lumbosacral region (principal); I48.91 Unspecified atrial fibrillation; Z79.01 Long term (current) use of anticoagulants
CPT/HCPCS: 62323; J3301; Q9966; J2795

== ENCOUNTER → 2020-12-04 | Outpatient (CLI) | payer MEDICARE, BC ==
[2020-12-04 13:00] VITALS: BP 137/83; PULSE 59; RESP 18; TEMP 97.6
--- NOTE | 2020-12-04 13:24 | P.PN ---
Subjective Progress Note Date: 12/04/20 This is a 75-year-old lady with history of chronic lower back pain status post lumbar medial branch RFA and lumbar epidural steroid injection. 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 The pain does not radiate around her chest anteriorly. She denies any paresthesia in this area. She does have some degree of thoracic kyphosis. Patient denies new-onset weakness, bowel/bladder incontinence, or any other signs or symptoms of cauda equina syndrome. There are no signs of acute intoxication, and no indications of medication diversion or overuse. In addition to above, 13-point review of systems is also negative for chest pain, shortness of breath, changes in vision, changes in hearing, new onset weakness, abdominal pain, diarrhea, extreme fatigue, malaise, fever, skin changes, homicidal or suicidal ideation, or bowel or bladder incontinence. Vital Signs: Reviewed in EMR Gen: AAOx3, NAD HEENT: PERRLA,hearing grossly normal Pulm: resp unlabored Neck: supple, trachea midline Neuro exam of the lower extremities: Straight leg raising test: Jose's test: Range of motion of the lumbar spine: Facet loading test: Tenderness in the paravertebral musculature: Positive on the midthoracic area Neuro: CN II-XII grossly intact, Imaging: Reviewed in EMR/chart Assessment: Thoracic spondylosis without myelopathy Lumbar spondylosis without myelopathy Thoracic kyphosis Plan: 1. Explanation: Opioid and psychological risk scores were reviewed. Diagnoses, prognoses, and multiple treatment options including but not limited to physical therapy, interventional therapies, adjuvant medical therapies, narcotic medication therapies, and surgery were discussed with the patient and all questions were answered to the patient's satisfaction. 2. Opioid agreement: Signed with the patient and the patient is warned not to use opioids while driving or before driving and not to combine opioids with benzodiazepines or alcohol. 3. Counseling: The patient was counseled extensively on SMOKING CESSATION, BODY MASS INDEX, EXERCISE. Specifically, the patient was instructed regarding the importance of smoking cessation, obesity, and exercise in the context of both chronic pain and overall health. 4. Procedures: Schedule for diagnostic thoracic medial branch block for levels T6, T7, and T8 bilaterally under fluoroscopic guidance 5. Consultations: None 6. Investigations: None 7. Medications: None 8. Disposition: Proceed with the above-mentioned procedure as soon as possible 9. Maps were reviewed and were appropriate. Objective - Vital Signs Vital signs: Vital Signs Temp 97.6 F 12/04/20 12:54 Pulse 59 L 12/04/20 12:54 Resp 18 12/04/20 12:54 BP 137/83 12/04/20 12:54 Pulse Ox 98 12/04/20 12:54
== END | disposition home or self-care (01) ==
LOC: PNWHC3 12:43
PROVIDERS: ATTEND Anesthesiology
DX: M47.814 Spondylosis without myelopathy or radiculopathy, thoracic region (principal); M47.816 Spondylosis without myelopathy or radiculopathy, lumbar region; M40.204 Unspecified kyphosis, thoracic region
CPT/HCPCS: 99211

== ENCOUNTER 2020-12-20 07:22 | Day surgery (SDC) | payer MEDICARE, BC ==
[2020-12-19 10:06] VITALS: BMI 36.7
[2020-12-20 08:00] VITALS: RESP 16; TEMP 97
[2020-12-20] MEDS ORDERED: TRIAMCINOLONE ACETONIDE 40 MG/ML 1 ML VIAL ONE (08:35)
[2020-12-20] MEDS ORDERED: ROPIVACAINE 5MG/ML 20ML VIAL ONE (08:35)
--- NOTE | 2020-12-20 09:02 | P.PCN ---
Date of Procedure: 12/20/20 Surgeon: Bijal Mckenna Pathology: none sent Condition: stable Disposition: PACU Description of Procedure: Medical diagnosis: Thoracic spondylosis without myelopathy Name of procedure: Bilateral thoracic medial branch block under fluoroscopic guidance for levels T6,T7, and T8 Anesthesia: Local with lidocaine 1% only Physician:Bijal Mckenna MD Description of procedure: The patient was seen in the preop holding area consent was obtained then she was brought into the procedure when placed in prone position. Skin was prepped with ChloraPrep and draped in a sterile manner. Lidocaine 1% was used to numb the skin up at the target points that were chosen as follows: The superio- lateral angle of each transverse process starting from T6 to T8 was identified on the right oblique view of fluoroscopy. I then used 25-gauge 3-1/2 inch Quincke spinal needle to go through the skin and to contact bone at the above-mentioned target points. I then injected 1 mL of a solution made up of 5 MLS of ropivacaine 0.5% and 40 mg of Kenalog. The left side was done first and then the right side was done in the same manner .The needles then were taken out intact. The patient tolerated procedure well. The patient was transferred to PACU in stable condition with no complications. The picture of needle placement was saved to the C-arm machine.
--- NOTE | 2020-12-20 09:12 | FL ---
Fluoroscopy INDICATION: Pain FINDINGS: Fluoroscopy time: 20 seconds. Images obtained: 3. IMPRESSIONS: 1. Documentation of fluoroscopy.
[2020-12-20 09:18] VITALS: BP 161/79; PULSE 54
== END 2020-12-20 09:39 | disposition home or self-care (01) ==
LOC: ORPAIN 07:22
PROVIDERS: ATTEND Anesthesiology
DX: M47.814 Spondylosis without myelopathy or radiculopathy, thoracic region (principal); I48.91 Unspecified atrial fibrillation; Z91.030 Bee allergy status; Z79.01 Long term (current) use of anticoagulants
CPT/HCPCS: 64490; 64491; 64492; J3301; J2795

== ENCOUNTER → 2021-01-27 | Outpatient (CLI) | payer MEDICARE, BC ==
[2021-01-27 10:06] VITALS: BP 143/78; PULSE 66; RESP 16; TEMP 97.7
--- NOTE | 2021-01-27 10:18 | P.PN ---
Subjective Progress Note Date: 01/27/21 This is a 76-year-old lady with history of mid and lower back pain. The patient had a diagnostic thoracic medial branch block which gave her more than 80% of pain relief. Her upper back pain is not as frequent as it was before the injection. She also had lumbar medial branch RFA which did not help her pain that much in the lower back area as she states. She has numerous sharp pain which started about 3 days ago on the left side of her back with radiation to the buttock however there is lack no radiation to the lower extremities. The patient has history of A. fib with treatment with Eliquis. Patient denies new-onset weakness, bowel/bladder incontinence, or any other signs or symptoms of cauda equina syndrome. There are no signs of acute intoxication, and no indications of medication diversion or overuse. In addition to above, 13-point review of systems is also negative for chest pain, shortness of breath, changes in vision, changes in hearing, new onset weakness, abdominal pain, diarrhea, extreme fatigue, malaise, fever, skin changes, homicidal or suicidal ideation, or bowel or bladder incontinence. Vital Signs: Reviewed in EMR Gen: AAOx3, NAD HEENT: PERRLA,hearing grossly normal Pulm: resp unlabored Neck: supple, trachea midline Neuro exam of the lower extremities: Straight leg raising test: Jose's test: Positive on the left side Range of motion of the lumbar spine: Facet loading test: Postop tenderness around the left sacroiliac joint Neuro: CN II-XII grossly intact, Imaging: Reviewed in EMR/chart Assessment: Thoracic and lumbar spondylosis without myelopathy Left sacroiliitis Plan: 1. Explanation: Opioid and psychological risk scores were reviewed. Diagnoses, prognoses, and multiple treatment options including but not limited to physical therapy, interventional therapies, adjuvant medical therapies, narcotic medication therapies, and surgery were discussed with the patient and all questions were answered to the patient's satisfaction. 2. Opioid agreement: Signed with the patient and the patient is warned not to use opioids while driving or before driving and not to combine opioids with benzodiazepines or alcohol. 3. Counseling: The patient was counseled extensively on SMOKING CESSATION, BODY MASS INDEX, EXERCISE. Specifically, the patient was instructed regarding the importance of smoking cessation, obesity, and exercise in the context of both chronic pain and overall health. 4. Procedures: Left sacroiliac joint steroid injection under fluoroscopic guidance using 25-gauge needle followed by pressure holding on the injection area for about 3 minutes. There is no need to hold her Eliquis for this procedure. We'll wait for one week before we do this procedure hopefully during this time her pain will get better if not then she will show up for the above-mentioned procedure. 5. Consultations: None 6. Investigations: None 7. Medications: None prescribed. The patient takes Tylenol for her pain 8. Disposition: 9. Maps were reviewed and were appropriate. Objective - Vital Signs Vital signs: Vital Signs Temp 97.7 F 01/27/21 10:03 Pulse 66 01/27/21 10:03 Resp 16 01/27/21 10:03 BP 143/78 01/27/21 10:03 Pulse Ox 96 01/27/21 10:03
== END ==
LOC: PNWHC3 09:52
PROVIDERS: ATTEND Anesthesiology
DX: M47.816 Spondylosis without myelopathy or radiculopathy, lumbar region (principal); M47.814 Spondylosis without myelopathy or radiculopathy, thoracic region; M46.1 Sacroiliitis, not elsewhere classified
CPT/HCPCS: 99211

== ENCOUNTER 2023-09-01 08:31 | Day surgery (SDC) | payer MEDICARE ==
[2023-08-27 14:04] VITALS: BMI 37.3
--- NOTE | 2023-09-01 07:47 | P.GSHP ---
History of Present Illness H&P Date: 09/01/23 CHIEF COMPLAINT: GERD and colon screen HISTORY OF PRESENT ILLNESS: The patient is a 78-year-old female who presents with gastroesophageal reflux disease and need for colon screen. Upper and lower endoscopy were offered for further evaluation and management. PAST MEDICAL HISTORY: Please see list. PAST SURGICAL HISTORY: Please see list. MEDICATIONS: Please see list. ALLERGIES: Please see list. SOCIAL HISTORY: No illicit drug use FAMILY HISTORY: No reports of Crohn disease or ulcerative colitis. REVIEW OF ORGAN SYSTEMS: CONSTITUTIONAL: No reports of fevers or chills. GI: Denies any blood in stools or constipation. PHYSICAL EXAM: VITAL SIGNS: Stable GENERAL: Well-developed pleasant in no acute distress. HEENT: No scleral icterus. Extraocular movements grossly intact. Moist buccal mucosa. NECK: Supple without lymphadenopathy. CHEST: Unlabored respirations. Equal bilateral excursions. CARDIOVASCULAR: Regular rate and rhythm. Distal 2+ pulses. ABDOMEN: Soft, nondistended. MUSCULOSKELETAL: No clubbing, cyanosis, or edema. ASSESSMENT: 1. Gastroesophageal reflux disease 2. Colon screen. PLAN: 1. Recommend proceeding with an upper and lower endoscopy Past Medical History Past Medical History: Atrial Fibrillation, Cancer, GERD/Reflux, Hyperlipidemia, Hypertension Additional Past Medical History / Comment(s): Basal cell skin cancer. Hiatal hernia, diverticulosis, chronic low back pain. 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 History of Any Multi-Drug Resistant Organisms: None Reported Past Surgical History: Cholecystectomy, Heart Catheterization, Orthopedic Surgery Additional Past Surgical History / Comment(s): 04/26/15 heart cath-normal, EGD, colonoscopies and once a polypectomy-benign, last colonoscopy was negative for any poylps 06/2011, basal cell skin cancer removal (nose), right bunionectomies, surgery shortened eyelids.pain clinic procedures Past Anesthesia/Blood Transfusion Reactions: No Reported Reaction Additional Past Anesthesia/Blood Transfusion Reaction / Comment(s): no blood transfusions. pain clinic ablation procedure 09/20/20 experienced rt leg from hip to toes numbness no feeling or strength beginning after procedure until 10 pm the same evening Smoking Status: Never smoker - Past Family History Daughter(s) Family Medical History: Cancer Additional Family Medical History / Comment(s): Breast cancer. uterine cancer Father Additional Family Medical History / Comment(s): Parkinson's dx. Father is . Mother Family Medical History: Diabetes Mellitus, Thyroid Disorder Additional Family Medical History / Comment(s): . Medications and Allergies Home Medications Medication Instructions Recorded Confirmed Type Aspirin EC [Ecotrin Low Dose] 81 mg PO HS 04/25/15 08/27/23 History Cholecalciferol [Vitamin D3 (25 1,000 unit PO DAILY 04/25/15 08/27/23 History Mcg = 1000 Iu)] Multivitamins, Thera [Multivitamin 1 tab PO DAILY 04/25/15 08/27/23 History (formulary)] L.acidoph,Paracasei, B.lactis 1 cap PO DAILY 08/29/17 08/27/23 History [Probiotic] atenoloL [Tenormin] 25 mg PO HS 08/29/17 08/27/23 History Apixaban [Eliquis] 5 mg PO BID 07/27/18 08/27/23 History ALPRAZolam [Xanax] 0.25 mg PO BID PRN 08/30/20 08/27/23 History Montelukast [Singulair] 10 mg PO HS 08/30/20 08/27/23 History Acetaminophen [Tylenol Extra 1,000 mg PO DIRECTED PRN 11/29/20 08/27/23 History Strength] Fiber Tab 1 tab PO DAILY 11/29/20 08/27/23 History lisinopriL 40 mg PO DAILY 12/19/20 08/27/23 History amLODIPine [Norvasc] 5 mg PO DAILY 01/22/21 08/27/23 History Ascorbic Acid [Vitamin C] 500 mg PO DAILY 11/25/21 08/27/23 History Zinc 50 mg PO DAILY 11/25/21 08/27/23 History Ciclopirox 1 applic TOPICAL DAILY 08/27/23 08/27/23 History Escitalopram [Lexapro] 10 mg PO DAILY 08/27/23 08/27/23 History Pantoprazole [Protonix] 40 mg PO DAILY 08/27/23 08/27/23 History Terbinafine [LamISIL] 250 mg PO DAILY 08/27/23 08/27/23 History Allergies Allergy/AdvReac Type Severity Reaction Status Date / Time erythromycin base Allergy burning Verified 08/27/23 13:37 [From Erythrocin] with eye ointment rivaroxaban [From Xarelto] Allergy blood in Verified 08/27/23 13:37 urine sulfamethoxazole Allergy Nausea Verified 08/27/23 13:37 [From Bactrim] trimethoprim [From Bactrim] Allergy Nausea Verified 08/27/23 13:37 salsalate [From Disalcid] AdvReac Unknown Verified 08/27/23 13:37 tobramycin AdvReac EYE Verified 08/27/23 13:37 REDNESS, ITCHING
[2023-09-01 09:42] VITALS: RESP 16; TEMP 98.2
[2023-09-01] MEDS ORDERED: LABETALOL 5 MG/ML VIAL MDV ONE (09:42)
[2023-09-01] MEDS ORDERED: PROPOFOL 10 MG/ML 20 ML VIAL IV ONE (09:42)
[2023-09-01] MEDS ORDERED: LIDOCAINE 1% INJ 10MG/ML (20 ML MDV) ONE (09:42)
--- NOTE | 2023-09-01 10:01 | P.PCN ---
Date of Procedure: 09/01/23 Description of Procedure: PREOPERATIVE DIAGNOSIS: Gastroesophageal reflux disease. Morbid obesity due to excess calories, BMI 37.3 POSTOPERATIVE DIAGNOSIS: Gastroesophageal reflux disease. Gastric polyps Gastritis. Diaphragmatic hiatal hernia OPERATION: Esophagogastroduodenoscopy with biopsies along the esophagus, antrum and duodenum SURGEON: Dora Lund MD ANESTHESIA: MAC. INDICATIONS: The patient is a 78-year-old female who presents with reflux disease. Benefits and risks of the procedure were described. Informed consent was obtained. DESCRIPTION: The patient was brought into the endoscopy suite and laid in the left lateral decubitus position. An Olympus gastroscope was passed along the posterior oropharynx down to the distal esophagus where the squamocolumnar junction was encountered at 34 cm from the incisors. The stomach was entered and bile reflux was found. Additional findings are listed below. Biopsies with cold forceps were obtained of the antrum. The first through third portion of the duodenum was examined. Retroflexion of the scope confirmed Hill grade 4 lower esophageal valve. The squamocolumnar junction demonstrated LA grade B erosive esophagitis. The stomach was desufflated. The patient tolerated the procedure well. FINDINGS: Squamocolumnar junction 34 cm from the incisors. Diaphragmatic hiatus at 40 cm. Hiatal hernia, 6 cm, sliding type Hill grade 4 lower esophageal valve. LA grade B erosive esophagitis. Biopsies obtained of the duodenum and esophagus Chronic gastritis with biopsies obtained. Gastric polyps RECOMMENDATIONS: Recommend repair of hiatal hernia Upper endoscopy as needed.
--- NOTE | 2023-09-01 10:20 | P.PCN ---
Date of Procedure: 09/01/23 Description of Procedure: PREOPERATIVE DIAGNOSIS: History of colon polyps Colonoscopy screening. POSTOPERATIVE DIAGNOSIS: Severe sigmoid diverticulosis with stricture, partial large bowel obstruction OPERATION: Colonoscopy to the hepatic flexure SURGEON: Dora Lund MD. ANESTHESIA: MAC. INDICATIONS: The patient is a 78-year-old female who presents for history of colon polyps and colonoscopy screening. Her last colonoscopy was 5 years ago. Benefits and risks were described and informed consent was obtained. DESCRIPTION OF PROCEDURE: The patient had undergone Suprep. She had been brought into the operating room and laid in the left lateral decubitus position. After adequate intravenous sedation, the rectum was examined with 2% lidocaine jelly. No external hemorrhoids were encountered. The rectal tone was loose. No lesions were palpated in the rectal vault. An Olympus pediatric colonoscope was advanced along the rectum to a very tortuous sigmoid colon. Severe sigmoid diverticulosis was identified with partial obstruction. Despite multiple maneuvers, the sigmoid colon had severe tortuosity preventing further advancement of scope. The scope was passed to the hepatic flexure. No evidence of polyps were identified. As the patient posed high risk for perforation with persistence of the procedure, the procedure was discontinued. The colon was desufflated. The patient had tolerated the procedure well. Withdrawal time was over 6 minutes. FINDINGS: Aronchik preparation quality scale 2 (1-5) Tortuous sigmoid colon with stricture preventing further advancement of the scope. External prolapsed hemorrhoids. Scope advanced to the hepatic flexure No arteriovenous malformations. No adenomatous polyps. No focal colitis. RECOMMENDATIONS: Completion of colonoscopy evaluation with barium enema. Plan - Discharge Summary Discharge Rx Participant: No New Discharge Prescriptions: Continue Multivitamins, Thera [Multivitamin (formulary)] 1 tab PO DAILY Aspirin EC [Ecotrin Low Dose] 81 mg PO HS Cholecalciferol [Vitamin D3 (25 Mcg = 1000 Iu)] 1,000 unit PO DAILY L.acidoph,Paracasei, B.lactis [Probiotic] 1 cap PO DAILY atenoloL [Tenormin] 25 mg PO HS Apixaban [Eliquis] 5 mg PO BID ALPRAZolam [Xanax] 0.25 mg PO BID PRN PRN Reason: Anxiety Montelukast [Singulair] 10 mg PO HS Fiber Tab 1 tab PO DAILY Acetaminophen [Tylenol Extra Strength] 1,000 mg PO DIRECTED PRN PRN Reason: Pain lisinopriL 40 mg PO DAILY amLODIPine [Norvasc] 5 mg PO DAILY Pantoprazole [Protonix] 40 mg PO DAILY Escitalopram [Lexapro] 10 mg PO DAILY Zinc 50 mg PO DAILY Ascorbic Acid [Vitamin C] 500 mg PO DAILY Terbinafine [LamISIL] 250 mg PO DAILY Ciclopirox 1 applic TOPICAL DAILY Discharge Medication List Aspirin EC [Ecotrin Low Dose] 81 mg PO HS 04/25/15 [History] Cholecalciferol [Vitamin D3 (25 Mcg = 1000 Iu)] 1,000 unit PO DAILY 04/25/15 [History] Multivitamins, Thera [Multivitamin (formulary)] 1 tab PO DAILY 04/25/15 [History] L.acidoph,Paracasei, B.lactis [Probiotic] 1 cap PO DAILY 08/29/17 [History] atenoloL [Tenormin] 25 mg PO HS 08/29/17 [History] Apixaban [Eliquis] 5 mg PO BID 07/27/18 [History] ALPRAZolam [Xanax] 0.25 mg PO BID PRN 08/30/20 [History] Montelukast [Singulair] 10 mg PO HS 08/30/20 [History] Acetaminophen [Tylenol Extra Strength] 1,000 mg PO DIRECTED PRN 11/29/20 [History] Fiber Tab 1 tab PO DAILY 11/29/20 [History] lisinopriL 40 mg PO DAILY 12/19/20 [History] amLODIPine [Norvasc] 5 mg PO DAILY 01/22/21 [History] Ascorbic Acid [Vitamin C] 500 mg PO DAILY 11/25/21 [History] Zinc 50 mg PO DAILY 11/25/21 [History] Ciclopirox 1 applic TOPICAL DAILY 08/27/23 [History] Escitalopram [Lexapro] 10 mg PO DAILY 08/27/23 [History] Pantoprazole [Protonix] 40 mg PO DAILY 08/27/23 [History] Terbinafine [LamISIL] 250 mg PO DAILY 08/27/23 [History] Follow up Appointment(s)/Referral(s): Dora Lund MD [STAFF PHYSICIAN] - 09/21/23 11:00 am Patient Instructions/Handouts: Diverticulosis Diet (GEN), Barium Enema (DC), Hiatal Hernia (DC) Activity/Diet/Wound Care/Special Instructions: Do not start blood thinners until 09/04/23 Discharge Disposition: HOME SELF-CARE
[2023-09-01 11:44] VITALS: BP 155/67; PULSE 50
--- NOTE | 2023-09-01 14:12 | XR ---
EXAMINATION TYPE: XR abdomen 1V DATE OF EXAM: 09/01/2023 COMPARISON: NONE HISTORY: INCOMPLETE COLONOSCOPY TECHNIQUE: Single supine KUB image of the abdomen is obtained FINDINGS: Given large amount of air throughout the colon barium enema could not be performed at this time given risk of air block. Recommendation is to reschedule barium enema later date. IMPRESSION: 1. As above
== END 2023-09-01 12:53 | disposition home or self-care (01) ==
LOC: ORWHC2ENDO 08:31
PROVIDERS: ATTEND Surgery Plastic and Reconstructive Surgery
DX: Z12.11 Encounter for screening for malignant neoplasm of colon (principal); K21.00 Gastro-esophageal reflux disease with esophagitis, without bleeding; K31.7 Polyp of stomach and duodenum; K44.9 Diaphragmatic hernia without obstruction or gangrene; K56.690 Other partial intestinal obstruction; K57.30 Diverticulosis of large intestine without perforation or abscess without bleeding; K31.9 Disease of stomach and duodenum, unspecified; K29.50 Unspecified chronic gastritis without bleeding; E78.5 Hyperlipidemia, unspecified; E66.01 Morbid (severe) obesity due to excess calories; I48.91 Unspecified atrial fibrillation; I10 Essential (primary) hypertension; Z90.49 Acquired absence of other specified parts of digestive tract; Z79.01 Long term (current) use of anticoagulants; Z79.899 Other long term (current) drug therapy; Z88.1 Allergy status to other antibiotic agents; Z88.2 Allergy status to sulfonamides; Z88.8 Allergy status to other drugs, medicaments and biological substances; Z68.37 Body mass index [BMI] 37.0-37.9, adult; Z79.82 Long term (current) use of aspirin; Z85.828 Personal history of other malignant neoplasm of skin
CPT/HCPCS: 88305; 74018; 45378; 43239; J2001; J2704; J1920

== ENCOUNTER → 2023-09-02 | Outpatient (CLI) | payer MEDICARE ==
--- NOTE | 2023-09-02 09:30 | FL ---
EXAMINATION TYPE: FL barium enema DATE OF EXAM: 09/02/2023 COMPARISON: Abdominal radiograph 09/01/2023 HISTORY: Incomplete colonoscopy. TECHNIQUE: A single contrast barium enema study is performed. A total of 27 seconds of fluoroscopic time was utilized during procedure and 54 images obtained. Total dose area product (DAP) in uGy*m?, mGy*cm? (or similar): Cannot obtain due to how old the equipment is. FINDINGS: Oncology Pharmacist view of the abdomen shows overall non-obstructive bowel gas pattern. Degenerative ch anges of the lumbar spine. S-shaped scoliotic curvature. Few pelvic phleboliths. Surgical clip within the pelvis. Cholecystic clips in the right upper quadrant. Elevation of the right hemidiaphragm. No evidence of any mass or polyp, obstructing or constricting lesion throughout the colon. Few scatte red colonic diverticula particularly. There is some mild tortuosity in the splenic flexure with moder ate tortuosity identified within the hepatic flexure. The terminal ileum was refluxed and appears within normal limits. IMPRESSION: 1. No evidence for obstructing lesion. No evidence for mass. 2. Tortuosity of the colon. 3. Few scattered colonic diverticula.
== END | disposition home or self-care (01) ==
LOC: RADFLMAIN 07:56
PROVIDERS: ATTEND Surgery Plastic and Reconstructive Surgery
DX: Z12.11 Encounter for screening for malignant neoplasm of colon (principal); K21.00 Gastro-esophageal reflux disease with esophagitis, without bleeding; K57.30 Diverticulosis of large intestine without perforation or abscess without bleeding; K63.89 Other specified diseases of intestine
CPT/HCPCS: 74270

== ENCOUNTER → 2023-12-03 | Outpatient (CLI) | payer MEDICARE ==
--- NOTE | 2023-12-03 12:30 | US ---
EXAMINATION TYPE: US arterial LE single level DATE OF EXAM: 12/03/2023 10:46 AM CLINICAL INDICATION: Female, 78 years old with history of I73.9 pvd; PVD History of: Smoker: no Hypertension: no Diabetic: no Hyperlipidemia: no TIA/CVA: no Previous Vascular Surgery: no CAD: no [place]: no Vascular Ulcers: no Claudication: no Gangrene: no Doppler Waveforms: Right: Multiphasic Left: Multiphasic Right Brachial Pressure: 144 Left Brachial Pressure: 147 Ankle-Brachial Indices: Right: 1.14 Left: 1.16 Toe Brachial Indices: Right: 0.76 Left: 0.76 IMPRESSION: Ankle-brachial indices within normal limits, toe brachial indices with moderate peripher al vascular disease.
== END | disposition home or self-care (01) ==
LOC: RADUSWWP 10:15
PROVIDERS: ATTEND Family Medicine
DX: I73.9 Peripheral vascular disease, unspecified (principal)
CPT/HCPCS: 93922

== ENCOUNTER → 2024-01-20 | Outpatient (CLI) | payer MEDICARE ==
--- NOTE | 2024-01-20 12:16 | FL ---
EXAMINATION TYPE: FL barium swallow DATE OF EXAM: 01/20/2024 CLINICAL INDICATION: 79-year-old female burning chest pain and acid reflux, K44.9 DIAPHRAGMATIC HERNI A WITHOUT OBSTRUCTION OR COMPARISON: Total Fluoroscopy Time: 1 minute 16 seconds Total DAP: 238.7 mGycm2 32 images obtained. FINDINGS: The swallowing mechanism is normal and hypopharyngeal anatomy is preserved. The proximal to mid cervical esophagus shows normal course, caliber, contour, and motility. However, the distal third esophagus shows moderate to severe tertiary peristaltic contractions but no fixed narrowing or abnormal filling defect or ulceration. Prone imaging was not utilized due to patient's age and limited mobility. There is a moderate to large hiatal hernia with approximately a third of the stomach located in the l ower chest. Slight nodular fold thickening of the visualized gastric fundus may be on the basis of gastritis or p artial distention. IMPRESSION: 1. Moderate to large, fixed hiatal hernia with approximately a third of the stomach located in the lo wer chest. 2. Moderate to severe dysmotility along the distal third esophagus. 3. Some nodular fold thickening in the visualized gastric fundus may be on the basis of gastritis or partial distention. Correlate with findings on endoscopy to exclude underlying hyperplastic or other polyps.
== END | disposition home or self-care (01) ==
LOC: RADUSWWP 10:53
PROVIDERS: ATTEND Surgery Plastic and Reconstructive Surgery
DX: K44.9 Diaphragmatic hernia without obstruction or gangrene (principal); K31.89 Other diseases of stomach and duodenum; K21.9 Gastro-esophageal reflux disease without esophagitis; K22.4 Dyskinesia of esophagus
CPT/HCPCS: 74220

== ENCOUNTER 2024-02-24 06:19 | Inpatient (IN) | payer MEDICARE ==
[~2024-02-24 06:19] MED LIST changes: -LACTATED RINGERS 1,000 ML IV SCH; +ONDANSETRON 4 MG/2 ML VIAL IVP PRN
--- NOTE | 2024-02-24 06:36 | P.GSHP ---
History of Present Illness H&P Date: 02/24/24 CHIEF COMPLAINT: Paraesophageal hiatal hernia with gastroesophageal reflux disease. HISTORY OF PRESENT ILLNESS: The patient is a 79-year-old female who presents with symptomatic paraesophageal hiatal hernia over one year with gastroesophageal reflux disease. She has completed upper endoscopy workup. Now she presents for surgical intervention. PAST MEDICAL HISTORY: Please see list. PAST SURGICAL HISTORY: Please see list. MEDICATIONS: Please see list. ALLERGIES: Please see list. SOCIAL HISTORY: No illicit drug use FAMILY HISTORY: No reports of Crohn disease or ulcerative colitis. REVIEW OF ORGAN SYSTEMS: CONSTITUTIONAL: No reports of fevers or chills. GI: Denies any blood in stools or constipation. PHYSICAL EXAM: VITAL SIGNS: Stable GENERAL: Well-developed pleasant and in no acute distress. HEENT: No scleral icterus. Extraocular movements grossly intact. Moist buccal mucosa. NECK: Supple without lymphadenopathy. CHEST: Unlabored respirations. Equal bilateral excursions. CARDIOVASCULAR: Regular rate and rhythm. Distal 2+ pulses. ABDOMEN: Soft, nondistended. No peritoneal signs. MUSCULOSKELETAL: No clubbing, cyanosis, or edema. SKIN: Well-perfused. Good skin turgor. REPORTS: Upper endoscopy demonstrates paraesophageal hiatal hernia BARIUM SWALLOW: Images reviewed demonstrating paraesophageal hiatal hernia. This is my independent interpretation. REPORTS: Cardiology risk assessment obtained. Please see chart. ASSESSMENT: 1. Diaphragmatic paraesophageal hiatal hernia with severe gastroesophageal reflux disease. PLAN: 1. Recommend proceeding with a robotic paraesophageal hiatal hernia with possible mesh. 2. Benefits and risks of surgical intervention was discussed including possibility of open technique. 3. Inpatient hospitalization recommended of 2 nights 4. DVT prophylaxis. 5. Antibiotic prophylaxis. 6. She has also completed a very low caloric high-protein diet to address underlying hepatomegaly. 7. Non narcotic pain management including abdominal wall block described 8. Blood sugar glucose described. 9. Weight loss management described. Past Medical History Past Medical History: Atrial Fibrillation, Cancer, GERD/Reflux, Hyperlipidemia, Hypertension, Skin Disorder Additional Past Medical History / Comment(s): Basal cell skin cancer x2. Hiatal hernia, diverticulosis, chronic low back pain. PAST PAINT PREPPER HISTORY: She has no history of STDs. "Ringworm 2 weeks ago."-2023 resolved. History of Any Multi-Drug Resistant Organisms: None Reported Past Surgical History: Cholecystectomy, Heart Catheterization, Orthopedic Surgery Additional Past Surgical History / Comment(s): 04/26/15 heart cath-normal, EGD, colonoscopies and once a polypectomy-benign, last colonoscopy was negative for any poylps 06/2011, basal cell skin cancer removal (nose), right bunionectomies, surgery shortened eyelids.pain clinic procedures. January 2024 "I had an EGD and colonoscopy and they couldn't get through, so I barium enema.". Past Anesthesia/Blood Transfusion Reactions: No Reported Reaction Additional Past Anesthesia/Blood Transfusion Reaction / Comment(s): no HX blood transfusions. Smoking Status: Never smoker - Past Family History Daughter(s) Family Medical History: Cancer Additional Family Medical History / Comment(s): Breast cancer. uterine cancer Father Additional Family Medical History / Comment(s): Parkinson's dx. Father is . Mother Family Medical History: Diabetes Mellitus, Thyroid Disorder Additional Family Medical History / Comment(s): . Medications and Allergies Home Medications Medication Instructions Recorded Confirmed Type Cholecalciferol [Vitamin D3 (25 1,000 unit PO QAM 04/25/15 02/21/24 History Mcg = 1000 Iu)] Multivitamins, Thera [Multivitamin 1 tab PO QAM 04/25/15 02/21/24 History (formulary)] L.acidoph,Paracasei, B.lactis 1 cap PO QAM 08/29/17 02/21/24 History [Probiotic] atenoloL [Tenormin] 25 mg PO HS 08/29/17 02/21/24 History Apixaban [Eliquis] 5 mg PO BID 07/27/18 02/21/24 History Montelukast [Singulair] 10 mg PO HS 08/30/20 02/21/24 History Acetaminophen [Tylenol Extra 1,000 mg PO DIRECTED PRN 11/29/20 02/21/24 History Strength] Fiber Tab 2 tab PO DAILY 11/29/20 02/21/24 History lisinopriL 40 mg PO QAM 12/19/20 02/21/24 History amLODIPine [Norvasc] 5 mg PO QAM 01/22/21 02/21/24 History Ascorbic Acid [Vitamin C] 500 mg PO QAM 11/25/21 02/21/24 History Zinc 50 mg PO QAM 11/25/21 02/21/24 History Escitalopram [Lexapro] 10 mg PO QAM 08/27/23 02/21/24 History Pantoprazole [Protonix] 40 mg PO QAM 08/27/23 02/21/24 History Terbinafine [LamISIL] 250 mg PO QAM 08/27/23 02/21/24 History Preservision (Dose Unknown) 1 dose PO QAM 02/21/24 02/21/24 History Allergies Allergy/AdvReac Type Severity Reaction Status Date / Time erythromycin base Allergy burning Verified 02/21/24 13:25 [From Erythrocin] with eye ointment rivaroxaban [From Xarelto] Allergy blood in Verified 02/21/24 13:25 urine sulfamethoxazole Allergy Nausea/Diah Verified 02/21/24 13:25 [From Bactrim] rrea trimethoprim [From Bactrim] Allergy Nausea Verified 02/21/24 13:25 salsalate [From Disalcid] AdvReac Unknown Verified 02/21/24 13:25 tobramycin AdvReac EYE Verified 02/21/24 13:25 REDNESS, ITCHING
[2024-02-24] MEDS: ACETAMINOPHEN TAB 500 MG TAB PO PRN (07:05)
[2024-02-24] MEDS: LACTATED RINGERS 1,000 ML IV SCH (07:10)
[2024-02-24] MEDS: HEPARIN SODIUM,PORCINE 5,000 UNIT/ML 1 ML VIAL SQ PRN (07:14)
[2024-02-24] MEDS: ONDANSETRON 4 MG/2 ML VIAL IVP ONE (07:14)
[2024-02-24] MEDS: DEXAMETHASONE SOD PHOSPHATE 4 MG/ML 1 ML VIAL IV ONE (07:14)
[2024-02-24 07:20] LABS: Basophils # (A) 0.1 k/uL (0-0.2); Basophils % (A) 1 %; Eosinophils # (A) 0.2 k/uL (0-0.7); Eosinophils % (A) 2 %; HCT 39.2 % (34.0-46.0); HGB 13.3 gm/dL (11.4-16.0); Lymphocytes # (A) 1.6 k/uL (1.0-4.8); Lymphocytes % (A) 22 %; MCH 31.6 pg (25.0-35.0); MCV 92.8 fL (80.0-100.0); Mean Platelet Volume 8.1; Monocytes # (A) 0.4 k/uL (0-1.0); Monocytes % (A) 6 %; Neutrophils # (A) 4.9 k/uL (1.3-7.7); Neutrophils % (A) 68 %; Platelet Count 197 k/uL (150-450); RBC 4.22 m/uL (3.80-5.40); RDW 12.3 % (11.5-15.5); WBC 7.3 k/uL (3.8-10.6)
[2024-02-24] MEDS ORDERED: GLYCOPYRROLATE 0.2 MG/ML 2 ML VIAL ONE (07:28)
[2024-02-24] MEDS ORDERED: MIDAZOLAM 2 MG/2 ML VIAL ONE (07:28)
[2024-02-24] MEDS ORDERED: ROCURONIUM 10 MG/ML (5 ML VIAL) IV ONE (07:28)
[2024-02-24] MEDS ORDERED: ePHEDrine 50 MG/ML 1 ML VIAL ONE (07:28)
[2024-02-24] MEDS ORDERED: fentaNYL (PF) 50 MCG/ML 2 ML AMP ONE (07:28)
[2024-02-24] MEDS ORDERED: LIDOCAINE 1% INJ 10MG/ML (20 ML MDV) ONE (07:28)
[2024-02-24] MEDS ORDERED: NEOSTIGMINE 1 MG/ML 10 ML VIAL ONE (07:28)
[2024-02-24] MEDS ORDERED: PROPOFOL 10 MG/ML 20 ML VIAL IV ONE (07:28)
[2024-02-24] MEDS ORDERED: SUCCINYLCHOLINE CHLORIDE 200 MG/10 ML VIAL IV ONE (07:28)
[2024-02-24 07:46] LABS: ALT 38 U/L (4-34); AST 36 U/L (14-36); African American GFR (CKD) 55 (>60 ml/min/1.73 sqM); Albumin 4.2 g/dL (3.5-5.0); Alkaline Phosphatase 52 U/L (38-126); Anion Gap 10 mmol/L; Blood Urea Nitrogen 58 mg/dL (7-17); Calcium 9.6 mg/dL (8.4-10.2); Carbon Dioxide 19 mmol/L (22-30); Chloride 106 mmol/L (98-107); Glucose 103 mg/dL (74-99); Non-African American GFR(CKD) 48 (>60 ml/min/1.73 sqM); Potassium 4.6 mmol/L (3.5-5.1); Sodium 135 mmol/L (137-145); Total Bilirubin 0.6 mg/dL (0.2-1.3); Total Protein 6.9 g/dL (6.3-8.2)
[2024-02-24] MEDS: metroNIDAZOLE-NS PMX 500 MG in SALINE 1 100ML.BAG IVPB PRN (07:51)
[2024-02-24] MEDS: LIDOCAINE 1%-EPI 1:100,000 20 ML VIAL SQ ONE (08:01)
[2024-02-24] MEDS ORDERED: NALOXONE 0.4 MG/ML 1 ML VIAL IV PRN (09:47)
[2024-02-24] MEDS ORDERED: HYDROmorphone 1 MG/ML 1 ML SYRINGE IVP PRN (09:54)
[2024-02-24] MEDS: HYDROmorphone 0.5 MG/0.5 ML SYRINGE IVP PRN (09:59)
[2024-02-24] MEDS: LACTATED RINGERS 1,000 ML IV ONE (10:00)
--- NOTE | 2024-02-24 10:16 | P.OP ---
Date of Procedure: 02/24/24 Description of Procedure: DESCRIPTION OF PROCEDURE(S): SURGEON: ALMA MORALES MD PREOPERATIVE DIAGNOSES: 1. Gastroesophageal reflux disease. 2. Paraesophageal hiatal hernia, midline. 3. Hypertensive heart disease 4. Depressive disorder 5. Morbid obesity due to excess calories, BMI 36.7 6. Chronic anticoagulation 7. Atrial fibrillation, chronic 8. Generalized anxiety disorder 9. Hyperlipidemia POSTOPERATIVE DIAGNOSES: 1. Gastroesophageal reflux disease. 2. Paraesophageal hiatal hernia, midline. 3. Hypertensive heart disease 4. Depressive disorder 5. Morbid obesity due to excess calories, BMI 36.7 6. Chronic anticoagulation 7. Atrial fibrillation, chronic 8. Generalized anxiety disorder 9. Hyperlipidemia 10. Gastric polyps 11. Presbyesophagus 12. Anterior mediastinal mass OPERATION: 1. Robotic-assisted da Radha Xi laparoscopic reduction and repair of incarcerate d paraesophageal hiatal hernia, 5 x 4 cm, with [place] Biopatch A 7 x 10 cm. 2. Intraoperative esophagogastroduodenoscopy 3. Esophageal dilation 56-Faroese bougie to address esophageal dysmotility 4. Robotic-assisted da Radha Xi laparoscopic excision of anterior mediastinal lipoma, 4 x 4 cm ANESTHESIA: General with local anesthetic. ESTIMATED BLOOD LOSS: 5 mL SPECIMENS REMOVED: None. COMPLICATIONS: None. FINDINGS: 1. Multiple gastric polyps 2. Bougie 56-Faroese placed to address esophageal dysmotility 3. 5 x 4 cm paraesophageal incarcerated diaphragmatic hiatal hernia with moderate dissection into the mediastinum. 4. Intra-abdominal esophageal length over 3 cm obtained 5. [place] Biopatch A onlay mesh placed. 6. Large mediastinal lipoma, 4 x 4 cm excised from the distal esophagus INDICATIONS: The patient is a 79-year-old female who presents with regurgitation, gastroesophageal reflux disease and a symptomatic diaphragmatic hiatal hernia. Preoperative workup including upper endoscopy demonstrated a Hill grade 4 lower esophageal valve. Barium swallow demonstrated large sliding hiatal hernia paraesophageal type. Given the severity of her symptoms, particularly of her symptomatic diaphragmatic hiatal hernia, she had elected for surgical intervention. Benefits and risks including bleeding, infection, recurrence, dysphagia, injury to the lung, need for further surgery was described at length. Informed consent was obtained. DESCRIPTION: The patient was brought into the operating room and placed in supine position. Preoperatively she had received Heparin subcutaneously for DVT prophylaxis. After general induction, the abdomen was prepped and draped in standard sterile fashion. The patient had previously voided prior to coming to the operating room. Ioban draping was placed along the abdomen. A timeout protocol was confirmed with the surgical team, for which the patient's name, procedure to be performed including DVT prophylaxis with bilateral SCDs, and preoperative antibiotics were also confirmed. A robotic da Radha Xi system was prepped and primed. At 10 cm from the xiphoid to just below the umbilicus, proposed port sites were marked with indelible marker along the left axillary line, left mid-clavicular line with each ports were marked 10 cm from each other. A 5 mm 0 degrees laparoscopic trocar entry was performed along the left upper quadrant. The abdomen was insufflated to 15 mmHg pressure she tolerated well. Diagnostic laparoscopy demonstrated no injury to bowel, viscera, or mesentery. The liver surface was unremarkable. No injury had occurred to the small bowel or viscera. Along the hiatus, a defect was found anteriorly. Recurrent left tubal hernia was confirmed. Next, one 8 mm robotic port was placed along the right upper abdomen. An 8-mm port was were placed along the left lateral abdominal wall. The camera 8-mm port was maintained along the epigastrium via the hernia defect. Another 12 mm port was placed along the left upper abdominal wall after exchanging the 5 mm port. Please note that the ports were placed at least 20 cm away from the target anatomy. Care was taken to check that each robotic arm were safely away from collision with the bed or the patient. At the epigastrium, a median sized Emerson liver retractor was placed under direct visualization with the Iron Senior Medical Writer placed over the right shoulder of the patient. The additional third robotic arm was placed along the left aspect of the patient. The patient was repositioned in reverse Trendelenburg position at 25-degrees after lowering the bed. The robot was docked above the left side of the patient. Using a grasper for arm 3, a grasper for arm 1, including vessel sealer for arm 4, the robotic system was docked and primed as described. Instruments were interchanged by the switchboard operator assistant. I had sat at the console. The gastrohepatic ligament was cleaved using a vessel sealer. Next, the phrenoesophageal ligament was mobilized and the distal esophagus was mobilized circumferentially with care of to the bilateral vagi nerves. The left and right crura was identified. A midline large hiatal hernia and sac was found. Circumferentially, the hernia sac was excised and brought into the peritoneal cavity. Care was taken to avoid any gastrotomy to the upper pole of the stomach. The measured defect was consistent with 5 cm axial length and 4 cm in width. A large mediastinal lipoma of the anterior mediastinum was resected from the distal esophagus, 4 x 4 cm. The distal esophagus at least 3 cm was brought into the abdominal cavity. Once the hiatus and crura was dissected, 2-0 VLOC suture was placed initially with a [id number] suture to reapproximate the diaphragmatic hiatus posteriorly. To buttress the repair, a [place] Biopatch A was prepared along the back table as to reinforce the repair as an underlay and cut in quarters.. The mesh was placed along the crural repair and tagged using horizontal mattress sutures using nonabsorbable. 2-0 VLOC. I went to the head of the bed to perform intraoperative esophagogastroduodenoscopy. A 56-Faroese bougie was carefully placed along the posterior oropharynx through the hiatus and then removed. An Olympus gastroscope was passed through posterior oropharynx, where the GE junction was found distal to the diaphragmatic hiatus. The intra-abdominal esophageal length obtained during the case was over 3 cm. The stomach was entered. Retroflexion of the scope confirmed a Hill grade 1 lower esophageal valve. Duodenal ulcers along the first portion of duodenum was confirmed without bleeding. The stomach had been desufflated. No evidence of leaks were found either of the mucosal defects of the esophagus or stomach. The hiatal closure was consistent with a 56 Faroese bougie as a bougie was passed to address presbyesophagus and esophageal dysmotility identified on upper endoscopy. This concluded the endoscopic portion of the case. The robot was undocked from the patient. I re-scrubbed into the case. All instruments and pneumoperitoneum were evacuated from the abdominal cavity. Incisions were reapproximated using 4-0 Monocryl in an interrupted subcuticular fashion. Liquid glue was applied to the skin. Local anesthetic was infiltrated in all wounds for postop analgesia. Multiple intra-abdominal films were obtained. At the end of the procedure, needle, sponge, and instrument count was verified correct by the ophthalmology surgical technician. The patient had tolerated the procedure well and was taken to the postanesthesia unit in stable condition. Intraoperative films were reviewed with the patient's family who was pleased with the level of care.
[2024-02-24] MEDS: ACETAMINOPHEN IV (For NPO) 1,000 MG in EMPTY BAG 1 BAG IVPB SCH (12:16)
--- NOTE | 2024-02-24 15:37 | FL ---
EXAMINATION TYPE: FL esophagus cervic/pharynx DATE OF EXAM: 02/24/2024 3:08 PM CLINICAL INDICATION:Female, 79 years old with history of rule out leak/obstruction; COMPARISON: 06/21/2024. TECHNIQUE: Limited single contrast UGI study is performed with Isovue-370. A total of 1 minute [address] of fluoroscopic time was utilized during procedure and 19 images obtained. DAP: Not reported [id number] FINDINGS: The stomach demonstrates a postsurgical morphology. No extravasation of contrast identifie d. No evidence of mass or ulcer disease. There is obstruction at the gastroesophageal junction with dilation of the esophagus with oral contrast. It took multiple dry swallows to clear parts of the swa llowed contrast. Contrast remained at the end of the exam. IMPRESSION: 1. Postsurgical changes without evidence of contrast extravasation. 2. Delayed transit through the gastroesophageal junction suggesting some degree of obstruction.
[2024-02-24] MEDS: ONDANSETRON 4 MG/2 ML VIAL IVP SCH (15:52)
[2024-02-24] MEDS: SIMETHICONE 40 MG/0.6 ML DROPS 2,000 MG/30 ML BOTTLE PO SCH (15:52)
[2024-02-24] MEDS: D5-0.45% NACL WITH KCL 20MEQ/L 1,000 ML IV SCH (18:15)
[2024-02-24] MEDS: DEXAMETHASONE SOD PHOSPHATE 4 MG/ML 1 ML VIAL IVP SCH (18:15)
[2024-02-24] MEDS: MONTELUKAST 10 MG TAB PO SCH (21:25)
[2024-02-24] MEDS: atenoloL 25 MG TAB PO SCH (21:25)
[2024-02-24] MEDS: HEPARIN SODIUM,PORCINE 5,000 UNIT/ML 1 ML VIAL SQ SCH (21:26)
[2024-02-24] MEDS: PANTOPRAZOLE 40 MG/10 ML VIAL IV SCH (21:36)
[2024-02-25] MEDS: amLODIPine 5 MG TAB PO SCH (09:47)
[2024-02-25] MEDS: lisinopriL 20 MG TAB PO SCH (09:47)
--- NOTE | 2024-02-25 12:55 | P.PN ---
Progress Note - Text Progress Note Date: 02/25/24 Please see full documented note. Patient now complains of atypical chest pain. EKG demonstrates new ischemia. Inpatient status advised due to cardiology assessment for myocardial ischemia.
--- NOTE | 2024-02-25 13:03 | P.PN ---
Subjective Progress Note Date: 02/25/24 CHIEF COMPLAINT: Paraesophageal hiatal hernia HISTORY OF PRESENT ILLNESS: Patient postop day #1 status post robotic assisted laparoscopic reduction and repair of incarcerated paraesophageal hiatal hernia, esophageal dilation to address esophageal dysmotility, laparoscopic excision of anterior mediastinal lipoma. Patient initially this morning had no nausea or vomiting. However, after she ate the Jell-O she started having difficulty with swallowing and felt that it was sticking. Patient also was having chest pain that moves into the left shoulder and back. She did have episode of diarrhea this morning. She is also complaining of neck pain. She has been bradycardic which initially was thought related to the scheduled Zofran and she had received a beta-dewayne. Zofran has been discontinued. Cardiology has been consulted. Her heart rate had been in the 40s with a repeat heart rate in the 55. EKG demonstrates no ischemia. Cardiology was consulted. Afebrile. WBC 7.3 Hgb 13.3 creatinine 1.09. Upper GI had shown postsurgical changes without contrast extravasation. Delayed transit through the GE junction suggesting of a degree of obstruction PHYSICAL EXAM: VITAL SIGNS: Reviewed GENERAL: Well-developed in no acute distress. HEENT: No sclera icterus. Extraocular movements grossly intact. Moist buccal mucosa. Head is atraumatic, normocephalic. Hears conversational speech. No nasal drainage. NECK: Supple without lymphadenopathy. CHEST: Non-labored respirations and equal bilateral excursions. CARDIOVASCULAR: Palpable 2+ radial pulses. ABDOMEN: Soft. Nondistended. Incision sites clean dry and intact MUSCULOSKELETAL: No clubbing or cyanosis. NEUROLOGIC: No focal or lateralizing signs. Cranial nerves II through XII grossly intact. PSYCH: Appropriate affect. Alert and oriented to person, place and time. SKIN: Well perfused. Good skin turgor. ASSESSMENT: 1. Gastroesophageal reflux disease. 2. Paraesophageal hiatal hernia, midline. 3. Hypertensive heart disease 4. Depressive disorder 5. Morbid obesity due to excess calories, BMI 36.7 6. Chronic anticoagulation 7. Atrial fibrillation, chronic 8. Generalized anxiety disorder 9. Hyperlipidemia 10. Gastric polyps 11. Presbyesophagus 12. Anterior mediastinal mass 13. Atypical chest pain 14. Dysphagia likely postoperative edema. Upper GI showing a degree of obstruction 15. Bradycardia likely medication induced from the Zofran PLAN: -Consult cardiology service -Check troponin and repeat BMP -Decadron 10 mg IV push once with scheduled Decadron ordered for possible postoperative edema and dysphagia -Continue IV fluids -Continue Niesen clear liquids -Encourage patient to ambulate -Zofran discontinued -Continue pain management -Abdominal binder ordered -DVT prophylaxis subcu heparin Physician Director Of Hotel Operations note has been reviewed by physician. Signing provider agrees with the documented findings, assessment, and plan of care. Objective - Vital Signs Vital signs: Vital Signs Temp 98.2 F 02/25/24 11:50 Pulse 55 L 02/25/24 11:50 Resp 17 02/25/24 11:50 BP 164/71 02/25/24 11:50 Pulse Ox 95 02/25/24 11:50 FiO2 Intake & Output 02/24/24 02/25/24 02/25/24 18:59 06:59 18:59 Intake Total 1550 Output Total 10 800 Balance 1540 -800 Weight 91.1 kg Intake: IV 1550 Output: Urine 800 Estimated Blood Loss 10 Other: Voiding Method Toilet # Voids 1 - Labs CBC & Chem 7: 02/24/24 07:10 02/24/24 07:10
[2024-02-25 13:14] LABS: African American GFR (CKD) 72 (>60 ml/min/1.73 sqM); Anion Gap 12 mmol/L; Blood Urea Nitrogen 30 mg/dL (7-17); Calcium 9.3 mg/dL (8.4-10.2); Carbon Dioxide 15 mmol/L (22-30); Chloride 107 mmol/L (98-107); Glucose 168 mg/dL (74-99); Non-African American GFR(CKD) 63 (>60 ml/min/1.73 sqM); Potassium 5.3 mmol/L (3.5-5.1); Sodium 134 mmol/L (137-145)
[2024-02-25] MEDS: DEXAMETHASONE SOD PHOSPHATE 10 MG/ML 1 ML VIAL IVP STA (13:45)
[2024-02-25 17:05] VITALS: BMI 36.7
--- NOTE | 2024-02-26 09:38 | P.CRDCN ---
History of Present Illness Consult date: 02/26/24 Chief complaint: Reason for the consult is bradycardia History of present illness: The patient is a pleasant 79-year-old female patient who is known to our service from before with a past medical history significant for paroxysmal atrial fibrillation as well as hypertension and dyslipidemia and overweight. We consulted to see the patient because of her bradycardia. The patient was admitted to the hospital and she underwent an elective laparoscopic assisted paraesophageal hiatal hernia repair and the surgery itself was uneventful. We consulted to see the patient because of bradycardia. The patient has been in the 50s. She is known to have a bradycardia from before I see the patient in the office on regular basis and she has been always in the bradycardia with heart rate in the 50s. She is asymptomatic with no dizziness or lightheadedness and no presyncope or syncope and no symptoms of being tired or fatigue no symptoms of any chest pain or chest discomfort or shortness of breath. The EKG showed sinus bradycardia with no ischemic ST or T wave abnormalities noted. At home the patient was on AV monique dewayne agents including atenolol and also she was on oral anticoagulation. Both of these medications are on hold at this point. I am going to restart the patient back on her medications if his okay from the surgical standpoint of view. The blood work overall came in to be unremarkable besides mildly elevated potassium but otherwise she has normal CBC and BMP. The examination reveals regular rhythm with a soft systolic murmur and clear breathing sounds bilaterally and no carotid bruit and no edema was noted Assessment Status post hiatal hernia repair as described above Sinus bradycardia which is known from before and the patient is asymptomatic with it Paroxysmal atrial fibrillation Hypertension Dyslipidemia Overweight Plan Restart the patient back on atenolol Restart the patient back on oral anticoagulation Restart the patient back on the rest of her current medical regimen No need for any further cardiovascular testing at this point Follow-up with the patient Past Medical History Past Medical History: Atrial Fibrillation, Cancer, GERD/Reflux, Hyperlipidemia, Hypertension, Skin Disorder Additional Past Medical History / Comment(s): Basal cell skin cancer x2. Hiatal hernia, diverticulosis, chronic low back pain. 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 "Ringworm 2 weeks ago."-2023 resolved. History of Any Multi-Drug Resistant Organisms: None Reported Past Surgical History: Cholecystectomy, Heart Catheterization, Orthopedic Surgery Additional Past Surgical History / Comment(s): 04/26/15 heart cath-normal, EGD, colonoscopies and once a polypectomy-benign, last colonoscopy was negative for any poylps 06/2011, basal cell skin cancer removal (nose), right bunionectomies, surgery shortened eyelids.pain clinic procedures. January 2024 "I had an EGD and colonoscopy and they couldn't get through, so I barium enema.". Past Anesthesia/Blood Transfusion Reactions: No Reported Reaction Additional Past Anesthesia/Blood Transfusion Reaction / Comment(s): no HX blood transfusions. Past Psychological History: Anxiety Additional Psychological History / Comment(s): . Smoking Status: Never smoker Past Alcohol Use History: None Reported Past Drug Use History: None Reported - Past Family History Daughter(s) Family Medical History: Cancer Additional Family Medical History / Comment(s): Breast cancer. uterine cancer Father Additional Family Medical History / Comment(s): Parkinson's dx. Father is . Mother Family Medical History: Diabetes Mellitus, Thyroid Disorder Additional Family Medical History / Comment(s): . Medications and Allergies Home Medications Medication Instructions Recorded Confirmed Type Cholecalciferol [Vitamin D3 (25 1,000 unit PO QAM 04/25/15 02/24/24 History Mcg = 1000 Iu)] Multivitamins, Thera [Multivitamin 1 tab PO QAM 04/25/15 02/24/24 History (formulary)] L.acidoph,Paracasei, B.lactis 1 cap PO QAM 08/29/17 02/24/24 History [Probiotic] atenoloL [Tenormin] 25 mg PO HS 08/29/17 02/24/24 History Apixaban [Eliquis] 5 mg PO BID 07/27/18 02/24/24 History Montelukast [Singulair] 10 mg PO HS 08/30/20 02/24/24 History Acetaminophen [Tylenol Extra 1,000 mg PO DIRECTED PRN 11/29/20 02/24/24 History Strength] Fiber Tab 2 tab PO DAILY 11/29/20 02/24/24 History lisinopriL 40 mg PO QAM 12/19/20 02/24/24 History amLODIPine [Norvasc] 5 mg PO QAM 01/22/21 02/24/24 History Ascorbic Acid [Vitamin C] 500 mg PO QAM 11/25/21 02/24/24 History Zinc 50 mg PO QAM 11/25/21 02/24/24 History Escitalopram [Lexapro] 10 mg PO QAM 08/27/23 02/24/24 History Pantoprazole [Protonix] 40 mg PO QAM 08/27/23 02/24/24 History Terbinafine [LamISIL] 250 mg PO QAM 08/27/23 02/24/24 History Preservision (Dose Unknown) 1 dose PO QAM 02/21/24 02/24/24 History Allergies Allergy/AdvReac Type Severity Reaction Status Date / Time erythromycin base Allergy burning Verified 02/24/24 06:51 [From Erythrocin] with eye ointment rivaroxaban [From Xarelto] Allergy blood in Verified 02/24/24 06:51 urine sulfamethoxazole Allergy Nausea/Diah Verified 02/24/24 06:51 [From Bactrim] rrea trimethoprim [From Bactrim] Allergy Nausea Verified 02/24/24 06:51 salsalate [From Disalcid] AdvReac Unknown Verified 02/24/24 06:51 tobramycin AdvReac EYE Verified 02/24/24 06:51 REDNESS, ITCHING Physical Exam Vitals: Vital Signs Temp Pulse Resp BP Pulse Ox 02/26/24 04:45 97.6 F 55 L 18 140/66 94 L 02/26/24 01:27 68 02/25/24 23:33 97.8 F 55 L 16 139/60 100 02/25/24 19:00 56 L 18 144/79 95 02/25/24 16:17 98.1 F 54 L 18 141/63 95 02/25/24 11:50 98.2 F 55 L 17 164/71 95 Intake and Output 02/25/24 02/26/24 02/26/24 22:59 06:59 14:59 Intake Total 600 Balance 600 Intake: Oral 600 Other: Voiding Method Toilet Toilet # Voids 1 1 Weight 91.1 kg Results 02/24/24 07:10 02/25/24 12:28 Cardiac Enzymes 02/25/24 Range/Units 12:28 Troponin I 0.022 (0.000-0.034) ng/mL Comprehensive Metabolic Panel 02/25/24 Range/Units 12:28 Sodium 134 L (137-145) mmol/L Potassium 5.3 H (3.5-5.1) mmol/L Chloride 107 (98-107) mmol/L Carbon Dioxide 15 L (22-30) mmol/L BUN 30 H (7-17) mg/dL Creatinine 0.87 (0.52-1.04) mg/dL Glucose 168 H (74-99) mg/dL Calcium 9.3 (8.4-10.2) mg/dL Current Medications Generic Name Dose Route Start Last Admin Trade Name Freq PRN Reason Stop Dose Admin Amlodipine Besylate 5 mg 02/25/24 09:00 02/26/24 09:04 Amlodipine 5 Mg Tab PO 03/26/24 09:01 5 mg QAM ROXANNE Administration Atenolol 25 mg 02/24/24 21:00 02/25/24 21:54 Atenolol 25 Mg Tab PO 03/25/24 21:01 Not Given HS ROXANNE Dexamethasone Sodium Phosphate 4 mg 02/24/24 18:00 02/26/24 06:30 Dexamethasone Sod Phosphate 4 Mg/Ml 1 Ml Vial IVP 03/25/24 18:01 4 mg Q6HR ROXANNE Administration Heparin Sodium (Porcine) 5,000 unit 02/24/24 21:00 02/26/24 09:03 Heparin Sodium,Porcine 5,000 Unit/Ml 1 Ml Vial SQ 03/25/24 21:01 5,000 unit Q12HR ROXANNE Administration Hydromorphone HCl 1 mg 02/24/24 09:54 Hydromorphone 1 Mg/Ml 1 Ml Syringe IVP 03/25/24 09:55 Q4HR PRN Severe Pain (Scale 7 to 10) Acetaminophen 1,000 mg/ IV 100 mls @ 400 mls/hr 02/24/24 12:00 02/26/24 06:30 Solution IVPB 03/25/24 12:01 400 mls/hr Q6HR ROXANNE Administration Potassium Chloride/Dextrose/Sod Cl 1,000 mls @ 125 mls/hr 02/24/24 15:00 02/26/24 04:34 D5%-1/2ns-Kcl 20 Meq/L Iv Solution IV 03/25/24 15:01 125 mls/hr .Q8H ROXANNE Administration Montelukast Sodium 10 mg 02/24/24 21:00 02/25/24 20:35 Montelukast 10 Mg Tab PO 03/25/24 21:01 10 mg HS ROXANNE Administration Naloxone HCl 0.2 mg 02/24/24 09:47 Naloxone 0.4 Mg/Ml 1 Ml Vial IV 03/25/24 09:48 Q2M PRN Opioid Reversal Pantoprazole Sodium 40 mg 02/24/24 21:00 02/26/24 09:04 Pantoprazole 40 Mg/10 Ml Vial IV 03/25/24 21:01 40 mg BID ROXANNE Administration Simethicone 80 mg 02/24/24 13:30 02/26/24 09:04 Simethicone 40 Mg/0.6 Ml Drops 2,000 Mg/30 Ml Bottle PO 03/25/24 13:31 80 mg PCHS ROXANNE Administration Intake and Output 02/25/24 02/26/24 02/26/24 22:59 06:59 14:59 Intake Total 600 Balance 600 Intake: Oral 600 Other: Voiding Method Toilet Toilet # Voids 1 1 Weight 91.1 kg 02/24/24 07:10 02/25/24 12:28
--- NOTE | 2024-02-26 20:24 | P.PN ---
Subjective Progress Note Date: 02/26/24 CHIEF COMPLAINT: Paraesophageal hiatal hernia HISTORY OF PRESENT ILLNESS: Patient postop day #2 status post robotic assisted laparoscopic reduction and repair of incarcerated paraesophageal hiatal hernia, esophageal dilation to address esophageal dysmotility, laparoscopic excision of anterior mediastinal lipoma. Patient itolerating CLD, awaiting final cardiology input for the chest pain. Upper GI had shown postsurgical changes without contrast extravasation. Delayed transit through the GE junction suggesting of a degree of obstruction PHYSICAL EXAM: VITAL SIGNS: Reviewed GENERAL: Well-developed in no acute distress. HEENT: No sclera icterus. Extraocular movements grossly intact. Moist buccal mucosa. Head is atraumatic, normocephalic. Hears conversational speech. No nasal drainage. NECK: Supple without lymphadenopathy. CHEST: Non-labored respirations and equal bilateral excursions. CARDIOVASCULAR: Palpable 2+ radial pulses. ABDOMEN: Soft. Nondistended. Incision sites clean dry and intact MUSCULOSKELETAL: No clubbing or cyanosis. NEUROLOGIC: No focal or lateralizing signs. Cranial nerves II through XII grossly intact. PSYCH: Appropriate affect. Alert and oriented to person, place and time. SKIN: Well perfused. Good skin turgor. ASSESSMENT: 1. Gastroesophageal reflux disease. 2. Paraesophageal hiatal hernia, midline. 3. Hypertensive heart disease 4. Depressive disorder 5. Morbid obesity due to excess calories, BMI 36.7 6. Chronic anticoagulation 7. Atrial fibrillation, chronic 8. Generalized anxiety disorder 9. Hyperlipidemia 10. Gastric polyps 11. Presbyesophagus 12. Anterior mediastinal mass 13. Atypical chest pain 14. Dysphagia likely postoperative edema. Upper GI showing a degree of obstruction 15. Bradycardia likely medication induced from the Zofran PLAN: -Consult cardiology service -Check troponin and repeat BMP -Decadron 10 mg IV push once with scheduled Decadron ordered for possible postoperative edema and dysphagia -Continue IV fluids -Continue Niesen clear liquids Objective - Vital Signs Vital signs: Vital Signs Temp 97.4 F L 02/26/24 16:00 Pulse 51 L 02/26/24 16:00 Resp 18 02/26/24 16:00 BP 144/68 02/26/24 16:00 Pulse Ox 95 02/26/24 16:00 FiO2 Intake & Output 02/26/24 02/26/24 02/27/24 06:59 18:59 06:59 Intake Total 1340 Balance 1340 Intake: Intake, IV Titration 1100 Amount ACETAMINOPHEN IV (For NPO 100 ) 1,000 mg In Empty Bag 1 bag @ 400 mls/hr IVPB Q6HR ROX[facility] Rx#:[id number] D5-0.45% NaCl with KCl 1000 20Meq/l 1,000 ml @ 125 mls/hr IV .Q8H ROXANNE Rx#: [id number] Oral 240 Other: Voiding Method Toilet Toilet # Voids 1 1 - Labs CBC & Chem 7: 02/24/24 07:10 02/25/24 12:28
[2024-02-27] MEDS: amLODIPine 2.5 MG TAB PO STA (00:24)
[2024-02-27] MEDS: ACETAMINOPHEN IV (For NPO) 1,000 MG in EMPTY BAG 1 BAG IVPB SCH (02:59)
--- NOTE | 2024-02-27 09:10 | P.PN ---
Subjective Progress Note Date: 02/27/24 Patient states she feels weak and does not want to go home. On exam vital signs are stable. Abdomen soft. Status post repair of hiatal hernia. Patient he received supportive care. We dissected discharge home tomorrow. Objective - Vital Signs Vital signs: Vital Signs Temp 98.0 F 02/27/24 03:07 Pulse 51 L 02/27/24 03:07 Resp 16 02/27/24 03:07 BP 162/79 02/27/24 03:07 Pulse Ox 93 L 02/27/24 03:07 FiO2 Intake & Output 02/26/24 02/27/24 02/27/24 18:59 06:59 18:59 Intake Total 1340 790 Balance 1340 790 Intake: IV 10 Invasive Line 2 10 Intake, IV Titration 1100 Amount ACETAMINOPHEN IV (For NPO 100 ) 1,000 mg In Empty Bag 1 bag @ 400 mls/hr IVPB Q6HR ROX[facility] Rx#:[id number] D5-0.45% NaCl with KCl 1000 20Meq/l 1,000 ml @ 125 mls/hr IV .Q8H ROXANNE Rx#: [id number] Oral 240 780 Other: Voiding Method Toilet Toilet # Voids 1 2 - Labs CBC & Chem 7: 02/24/24 07:10 02/25/24 12:28
--- NOTE | 2024-02-27 10:42 | P.PN ---
Subjective Progress Note Date: 02/27/24 Principal diagnosis: Paroxysmal atrial fibrillation The patient is a pleasant 79-year-old female patient who is known to our service from before with a past medical history significant for paroxysmal atrial fibrillation as well as hypertension and dyslipidemia and overweight. We consulted to see the patient because of her bradycardia. The patient was admitted to the hospital and she underwent an elective laparoscopic assisted paraesophageal hiatal hernia repair and the surgery itself was uneventful. We consulted to see the patient because of bradycardia. The patient has been in the 50s. She is known to have a bradycardia from before I see the patient in the office on regular basis and she has been always in the bradycardia with heart rate in the 50s. She is asymptomatic with no dizziness or lightheadedness and no presyncope or syncope and no symptoms of being tired or fatigue no symptoms of any chest pain or chest discomfort or shortness of breath. The EKG showed sinus bradycardia with no ischemic ST or T wave abnormalities noted. At home the patient was on AV monique dewayne agents including atenolol and also she was on oral anticoagulation. Both of these medications are on hold at this point. I am going to restart the patient back on her medications if his okay from the surgical standpoint of view. The blood work overall came in to be unremarkable besides mildly elevated potassium but otherwise she has normal CBC and BMP. The examination reveals regular rhythm with a soft systolic murmur and clear breathing sounds bilaterally and no carotid bruit and no edema was noted February 27, 2024 The patient was seen and evaluated this morning. She is asymptomatic. The pressure remains elevated and consistent with stage II hypertension the dose of amlodipine has increased from 2.5 mg daily to 5 mg p.o. daily but will monitor the pressure for additional 24 hours and consider continue adjusting the medications if we need to. The patient potentially can be discharged in the next 24 hours. Examination reveals regular rhythm with a soft systolic murmur at the right upper sternal border with clear breathing sounds bilaterally and no carotid bruit and no lower extremities edema Assessment Status post hiatal hernia repair as described above Sinus bradycardia which is known from before and the patient is asymptomatic with it Paroxysmal atrial fibrillation Hypertension Dyslipidemia Overweight Plan Continue the current medical regimen Increase the dose of amlodipine Monitor the pressure for additional 24 hours Restart the patient back on oral anticoagulation as soon as possible and safe from the surgical standpoint of view Objective - Vital Signs Vital signs: Vital Signs Temp 97.8 F 02/27/24 08:10 Pulse 50 L 02/27/24 08:10 Resp 16 02/27/24 08:10 BP 159/68 02/27/24 08:10 Pulse Ox 94 L 02/27/24 08:10 FiO2 Intake & Output 02/26/24 02/27/24 02/27/24 18:59 06:59 18:59 Intake Total 1340 790 Balance 1340 790 Intake: IV 10 Invasive Line 2 10 Intake, IV Titration 1100 Amount ACETAMINOPHEN IV (For NPO 100 ) 1,000 mg In Empty Bag 1 bag @ 400 mls/hr IVPB Q6HR ROX[facility] Rx#:[id number] D5-0.45% NaCl with KCl 1000 20Meq/l 1,000 ml @ 125 mls/hr IV .Q8H ROXANNE Rx#: [id number] Oral 240 780 Other: Voiding Method Toilet Toilet Toilet # Voids 1 2 1 - Labs CBC & Chem 7: 02/24/24 07:10 02/25/24 12:28
[2024-02-27] MEDS: APIXABAN 5 MG TAB PO SCH (12:31)
[2024-02-28 09:07] VITALS: RESP 16; TEMP 97.8
[2024-02-28 12:09] VITALS: BP 175/81; PULSE 50
--- NOTE | 2024-02-28 12:27 | P.PN ---
Subjective Progress Note Date: 02/28/24 Paroxysmal atrial fibrillation The patient is a pleasant 79-year-old female patient who is known to our service from before with a past medical history significant for paroxysmal atrial fibrillation as well as hypertension and dyslipidemia and overweight. We consulted to see the patient because of her bradycardia. The patient was admitted to the hospital and she underwent an elective laparoscopic assisted paraesophageal hiatal hernia repair and the surgery itself was uneventful. We consulted to see the patient because of bradycardia. The patient has been in the 50s. She is known to have a bradycardia from before I see the patient in the office on regular basis and she has been always in the bradycardia with heart rate in the 50s. She is asymptomatic with no dizziness or lightheadedness and no presyncope or syncope and no symptoms of being tired or fatigue no symptoms of any chest pain or chest discomfort or shortness of breath. The EKG showed sinus bradycardia with no ischemic ST or T wave abnormalities noted. At home the patient was on AV monique dewayne agents including atenolol and also she was on oral anticoagulation. Both of these medications are on hold at this point. I am going to restart the patient back on her medications if his okay from the surgical standpoint of view. The blood work overall came in to be unremarkable besides mildly elevated potassium but otherwise she has normal CBC and BMP. The examination reveals regular rhythm with a soft systolic murmur and clear breathing sounds bilaterally and no carotid bruit and no edema was noted February 27, 2024 The patient was seen and evaluated this morning. She is asymptomatic. The pressure remains elevated and consistent with stage II hypertension the dose of amlodipine has increased from 2.5 mg daily to 5 mg p.o. daily but will monitor the pressure for additional 24 hours and consider continue adjusting the medications if we need to. The patient potentially can be discharged in the next 24 hours. Examination reveals regular rhythm with a soft systolic murmur at the right upper sternal border with clear breathing sounds bilaterally and no carotid bruit and no lower extremities edema 02/27 Patient denies having any palpitations. She denies abdominal pain. No chest pain or chest pressure. Heart rate is in the 50s, blood pressure 174/76, pulse ox 97% on room air. Yesterday, amlodipine dose was increased to 5 mg daily. Patient has been started back on Eliquis 5 mg twice daily. Assessment Status post hiatal hernia repair as described above Sinus bradycardia which is known from before and the patient is asymptomatic with it Paroxysmal atrial fibrillation Hypertension Dyslipidemia Overweight Plan Continue the current medical regimen Continue Eliquis Stat labs ordered and if electrolytes and renal function stable, we will plan to start patient on lisinopril. Nurse practitioner note has been reviewed, I agree with documented findings and plan of care. Patient was seen and examined. Objective - Vital Signs Vital signs: Vital Signs Temp 97.8 F 02/28/24 08:37 Pulse 51 L 02/28/24 08:37 Resp 16 02/28/24 08:37 BP 174/76 02/28/24 08:37 Pulse Ox 97 02/28/24 08:37 FiO2 Intake & Output 02/27/24 02/28/24 02/28/24 18:59 06:59 18:59 Intake Total 200 360 370 Balance 200 360 370 Intake: IV 10 Invasive Line 2 10 Intake, IV Titration 200 Amount ACETAMINOPHEN IV (For NPO 200 ) 1,000 mg In Empty Bag 1 bag @ 400 mls/hr IVPB Q6H [facility] Rx#:[id number] Oral 360 360 Other: Voiding Method Toilet Toilet Toilet # Voids 1 2 - Labs CBC & Chem 7: 02/24/24 07:10 02/25/24 12:28
[2024-02-28 12:34] LABS: African American GFR (CKD) 79 (>60 ml/min/1.73 sqM); Anion Gap 5 mmol/L; Blood Urea Nitrogen 18 mg/dL (7-17); Calcium 9.4 mg/dL (8.4-10.2); Carbon Dioxide 27 mmol/L (22-30); Chloride 102 mmol/L (98-107); Glucose 95 mg/dL (74-99); Non-African American GFR(CKD) 69 (>60 ml/min/1.73 sqM); Potassium 3.7 mmol/L (3.5-5.1); Sodium 134 mmol/L (137-145)
[2024-02-28] MEDS: lisinopriL 5 MG TAB PO SCH (13:55)
--- NOTE | 2024-02-28 14:08 | P.DS ---
Providers Expected date of discharge: 02/28/24 Attending physician: Dora Lund Consults: 02/24/24 06:29 Consult Physician Routine Consulting Provider: [facility] Consult Reason/Comments: Anesthesia [facility] Do you want consulting provider notified?: Yes 02/25/24 11:24 Consult Physician Routine Consulting Provider: Jose Manuel Javier Consult Reason/Comments: Bradycardia, Abnormal EKG Do you want consulting provider notified?: Yes Primary care physician: Fernandez Trujillo Hospital Course: Discharge diagnosis 1. Gastroesophageal reflux disease. 2. Paraesophageal hiatal hernia, midline. 3. Hypertensive heart disease 4. Depressive disorder 5. Morbid obesity due to excess calories, BMI 36.7 6. Chronic anticoagulation 7. Atrial fibrillation, chronic 8. Generalized anxiety disorder 9. Hyperlipidemia 10. Gastric polyps 11. Presbyesophagus 12. Anterior mediastinal mass 13. Sinus bradycardia which is known from before and the patient is asymptomatic with Hospital course The patient is a 79 female who presents with regurgitation, GERD and symptomatic diaphragmatic hiatal hernia. She is status post Robotic-assisted da Radha Xi laparoscopic reduction and repair of incarcerated paraesophageal hiatal hernia. Her upper GI did report a delayed transit through the gastroesophageal junction jesting some degree of obstruction. She was placed on IV Decadron scheduled. She is tolerating liquid diet. Pain is controlled. She is afebrile. She is ambulating. She did have a bowel movement. Patient also evaluated by cardiology during this admission and they have cleared her for discharge. Patient is stable for discharge. Physician License Clerk note has been reviewed by physician. Signing provider agrees with the documented findings, assessment, and plan of care. Patient Condition at Discharge: Stable Plan - Discharge Summary Discharge Rx Participant: No New Discharge Prescriptions: New Omeprazole [PriLOSEC] 40 mg PO DAILY #90 cap bisacodyL [Dulcolax] 5 mg PO DAILY PRN #10 tab PRN Reason: Constipation Simethicone 40 mg/0.6 ml Drops [Mylicon Drops] 40 mg PO PCHS PRN #30 ml PRN Reason: Gas Ondansetron Odt [Zofran Odt] 4 mg PO Q8HR PRN #9 tab PRN Reason: Nausea Continue L.acidoph,Paracasei, B.lactis [Probiotic] 1 cap PO QAM atenoloL [Tenormin] 25 mg PO HS Apixaban [Eliquis] 5 mg PO BID Montelukast [Singulair] 10 mg PO HS Fiber Tab 2 tab PO DAILY Acetaminophen [Tylenol Extra Strength] 1,000 mg PO DIRECTED PRN PRN Reason: Pain amLODIPine [Norvasc] 5 mg PO QAM Pantoprazole [Protonix] 40 mg PO QAM Escitalopram [Lexapro] 10 mg PO QAM Terbinafine [LamISIL] 250 mg PO QAM Preservision (Dose Unknown) 1 dose PO QAM Discontinued Multivitamins, Thera [Multivitamin (formulary)] 1 tab PO QAM Cholecalciferol [Vitamin D3 (25 Mcg = 1000 Iu)] 1,000 unit PO QAM Zinc 50 mg PO QAM Ascorbic Acid [Vitamin C] 500 mg PO QAM No Action lisinopriL 40 mg PO QAM Discharge Medication List L.acidoph,Paracasei, B.lactis [Probiotic] 1 cap PO QAM 08/29/17 [History] atenoloL [Tenormin] 25 mg PO HS 08/29/17 [History] Apixaban [Eliquis] 5 mg PO BID 07/27/18 [History] Montelukast [Singulair] 10 mg PO HS 08/30/20 [History] Acetaminophen [Tylenol Extra Strength] 1,000 mg PO DIRECTED PRN 11/29/20 [History] Fiber Tab 2 tab PO DAILY 11/29/20 [History] lisinopriL 40 mg PO QAM 12/19/20 [History] amLODIPine [Norvasc] 5 mg PO QAM 01/22/21 [History] Escitalopram [Lexapro] 10 mg PO QAM 08/27/23 [History] Pantoprazole [Protonix] 40 mg PO QAM 08/27/23 [History] Terbinafine [LamISIL] 250 mg PO QAM 08/27/23 [History] Preservision (Dose Unknown) 1 dose PO QAM 02/21/24 [History] Omeprazole [PriLOSEC] 40 mg PO DAILY #90 cap 02/28/24 [Rx] Ondansetron Odt [Zofran Odt] 4 mg PO Q8HR PRN #9 tab 02/28/24 [Rx] Simethicone 40 mg/0.6 ml Drops [Mylicon Drops] 40 mg PO [facility] PRN #30 ml 02/28/24 [Rx] bisacodyL [Dulcolax] 5 mg PO DAILY PRN #10 tab 02/28/24 [Rx] Follow up Appointment(s)/Referral(s): Dora Lund MD [STAFF PHYSICIAN] - 02/29/24 Activity/Diet/Wound Care/Special Instructions: You are scheduled for a Telehealth visit with Dr. Lund tomorrow 02/29/24 Liquid diet only for 2 weeks No lifting over 4 pounds in 4 weeks May shower No soaking in bath tubs for 2 weeks, Please notify your surgeon if you develop nausea and vomiting including new on set of abdominal pain. Please ambulate at all times. Use Simethicone, Gas-X, Tylenol scheduled for the next 24-48 hours for best pain relief. Use ice along incisions for the today to prevent swelling. Please open, cut, crush pills larger than the size of a tic tack No carbonated beverages. No straws. Hold on taking vitamins until seen by surgeon Do not remove scopolamine patch for 3 days, if present Avoiding Gas Avoid drinking through a straw. Do not chew gum or tobacco. These actions cause you to swallow air, which produces excess gas in your stomach. Chew with your mouth closed. Avoid any foods that cause stomach gas and distention. These foods include corn, dried beans, peas, lentils, onions, broccoli, cauliflower and any food from the cabbage family. Avoid carbonated drinks, alcohol, citrus and tomato products. Carbonated drinks (sodas) are not allowed for the first six to eight weeks after surgery. After this time you can try them again in small amounts Clear Liquid Diet The first diet after surgery is the clear liquid diet. It includes the following liquids: Apple juice Cranberry juice Grape juice Chicken broth Beef broth Flavored gelatin (Jell-O) Decaf tea and coffee Caffeinated beverages are permitted based on tolerance Popsicles English ice Full Liquid Diet The full liquid diet contains anything on the clear liquid diet, plus: Milk, soy, rice and almond (no chocolate) Cream of wheat, cream of rice, grits Strained creamed soups (no tomato or broccoli) Vanilla and strawberry-flavored ice cream Sherbet Blended, custard styled or whipped yogurt (plain or vanilla only) Vanilla and butterscotch pudding (no chocolate or coconut) Nutritional drinks including Ensure, Boost, [place] Instant Breakfast (no chocolate-flavored) Note: Dairy products, such as milk, ice cream and pudding, may cause diarrhea in some people just after surgery. You may need to avoid milk products. If so, substitute them with lactose-free beverages, such as soy, rice, Lactaid or almond milks. Discharge Disposition: HOME SELF-CARE
== END 2024-02-28 14:47 | disposition home or self-care (01) | DRG 327 ==
LOC: OR 06:19 → 4FBP 06:20 → 3SCARD 06:20 → OR 06:20 → 3SCARD 06:21 → UNDOADMIN 06:21 → OR 14:51 → 4FBP 14:51 → 3SCARD 02-25 13:43 → 4FBP 02-28 13:15 → UNDODISIN 02-28 14:47 → 4FBP 02-28 14:47 → 3SCARD 02-28 14:47 → OR 02-28 14:47 → 3SCARD 03-13 19:41
PROVIDERS: ADMIT Surgery Plastic and Reconstructive Surgery; ATTEND Surgery Plastic and Reconstructive Surgery
PROC: 0D718ZZ Dilation of Upper Esophagus, Via Natural or Artificial Opening Endoscopic (ICD-10-PCS; principal; 2024-02-24 07:30)
PROC: 0WBC4ZZ Excision of Mediastinum, Percutaneous Endoscopic Approach (ICD-10-PCS; principal; 2024-02-24 07:30)
PROC: 0BUT4JZ Supplement Diaphragm with Synthetic Substitute, Percutaneous Endoscopic Approach (ICD-10-PCS; principal; 2024-02-24 07:30)
PROC: 8E0W4CZ Robotic Assisted Procedure of Trunk Region, Percutaneous Endoscopic Approach (ICD-10-PCS; principal; 2024-02-24 07:30)
DX: K44.9 Diaphragmatic hernia without obstruction or gangrene (principal); I48.20 Chronic atrial fibrillation, unspecified; I11.9 Hypertensive heart disease without heart failure; E66.01 Morbid (severe) obesity due to excess calories; Z68.36 Body mass index [BMI] 36.0-36.9, adult; K26.9 Duodenal ulcer, unspecified as acute or chronic, without hemorrhage or perforation; F32.A Depression, unspecified; D17.4 Benign lipomatous neoplasm of intrathoracic organs; K31.7 Polyp of stomach and duodenum; K21.9 Gastro-esophageal reflux disease without esophagitis; K22.89 Other specified disease of esophagus; F41.1 Generalized anxiety disorder; E78.5 Hyperlipidemia, unspecified; K57.90 Diverticulosis of intestine, part unspecified, without perforation or abscess without bleeding; R00.1 Bradycardia, unspecified; T45.0X5A Adverse effect of antiallergic and antiemetic drugs, initial encounter; R07.89 Other chest pain; Z79.01 Long term (current) use of anticoagulants; Z79.899 Other long term (current) drug therapy; Z85.828 Personal history of other malignant neoplasm of skin; Z71.3 Dietary counseling and surveillance
CPT/HCPCS: 74210; 80048; 80053; 84484; 85025; 88304; 93005

== ENCOUNTER → 2024-05-16 | Outpatient (CLI) | payer MEDICARE ==
--- NOTE | 2024-05-17 08:04 | CA ---
Transthoracic Echo Report Name: Anayeli Newman Age: 79 Gender: F : 1945 Exam Date: 05/16/2024 15:47 Exam Location: [place] [facility] Ht (in): 62 Wt (lb): 191 Ordering Physician: Fernandez Trujillo DO Attending/Referring Phys: Angelique Guzman NPC Brand Inspector Brooklyn Lang RDCS Procedure CPT: Indications: I10 HTN I48.91 UNSPECIFIED ATRIAL FIBRILLATION Cardiac Hx: Technical Quality: Fair Contrast 1: Total Dose (mL): Contrast 2: Total Dose (mL): MEASUREMENTS (Male / Female) Normal Values 2D ECHO LV Diastolic Diameter PLAX 4.5 cm 4.2 - 5.9 / 3.9 - 5.3 cm LV Systolic Diameter PLAX 3.1 cm IVS Diastolic Thickness 1.2 cm 0.6 - 1.0 / 0.6 - 0.9 cm LVPW Diastolic Thickness 1.0 cm 0.6 - 1.0 / 0.6 - 0.9 cm LV Relative Wall Thickness 0.5 RV Internal Dim ED PLAX 3.5 cm LA Systolic Diameter LX 3.9 cm 3.0 - 4.0 / 2.7 - 3.8 cm LV Diastolic Volume MOD BP 69.3 cm??? 67 - 155 / 56 - 104 cm??? LV Systolic Volume MOD BP 26.9 cm??? 22 - 58 / 19 - 49 cm??? LV Ejection Fraction MOD BP 61.2 % >= 55 % LV Cardiac Index MOD BP 1024.6 cm???/min???m??? LV Diastolic Volume MOD 4C 65.4 cm??? LV Systolic Volume MOD 4C 26.8 cm??? LV Ejection Fraction MOD 4C 59.0 % LV Cardiac Index MOD 4C 932.4 cm???/min???m??? LV Diastolic Length 4C 5.6 cm LV Systolic Length 4C 5.1 cm LV Diastolic Volume MOD 2C 72.7 cm??? LV Systolic Volume MOD 2C 21.0 cm??? LV Ejection Fraction MOD 2C 71.1 % LV Cardiac Index MOD 2C 1248.1 cm???/min???m??? LV Diastolic Length 2C 5.7 cm LV Systolic Length 2C 3.9 cm M-MODE Aortic Root Diameter MM 3.1 cm LA Systolic Diameter MM 1.8 cm LA Ao Ratio MM 0.6 DOPPLER AV Peak Velocity 137.0 cm/s AV Peak Gradient 7.5 mmHg Mitral E Point Velocity 75.6 cm/s Mitral A Point Velocity 77.8 cm/s Mitral E to A Ratio 1.0 MV Deceleration Time 251.3 ms MV E' Velocity 5.8 cm/s Mitral E to MV E' Ratio 13.0 TR Peak Velocity 235.8 cm/s TR Peak Gradient 22.2 mmHg Right Ventricular Systolic Press 32.3 mmHg FINDINGS Left Ventricle Left ventricular ejection fraction is estimated at 50-55 %. Left ventricular cavity size normal. Mildly increased septal wall thickness. Mildly increased posterior wall thickness. Right Ventricle Mild right ventricular dilatation. Right ventricular systolic pressure within normal limits. Right Atrium Normal right atrial size. No right atrial thrombus or mass seen. Left Atrium Normal left atrial size. No left atrial thrombus or mass present. Mitral Valve Structurally normal mitral valve. No mitral stenosis, regurgitation or prolapse. Aortic Valve Trileaflet aortic valve. No aortic valve stenosis or regurgitation. Tricuspid Valve Structurally normal tricuspid valve. Mild tricuspid regurgitation. Pulmonic Valve Structurally normal pulmonic valve. No pulmonic regurgitation. Pericardium No pericardial effusion. No pleural effusion. Aorta Normal size aortic root and proximal ascending aorta. CONCLUSIONS Left ventricular ejection fraction 50-55% Mildly increased left ventricular wall thickness RVSP 32 Mild tricuspid regurgitation No pericardial effusion Previewed by: Dr. Theo Flores DO (Electronically Signed) Final Date: 17 May 2024 08:03
== END | disposition home or self-care (01) ==
LOC: RADECHMAIN 15:11
PROVIDERS: ATTEND Family Medicine
DX: I10 Essential (primary) hypertension (principal); I48.91 Unspecified atrial fibrillation
CPT/HCPCS: 93306

== ENCOUNTER → 2024-07-24 | Outpatient (CLI) | payer MEDICARE ==
[2024-07-24 15:23] LABS: Blood Urea Nitrogen 44.5 mg/dL (9.0-27.0); Carbon Dioxide 24.6 mmol/L (21.6-31.8); Chloride 103 mmol/L (96-109); Glucose 116 mg/dL (70-110); Potassium 4.4 mmol/L (3.5-5.5); Sodium 137 mmol/L (135-145)
[2024-07-24 15:24] LABS: ALT 13 U/L (8-44); AST 14 U/L (13-35); Albumin 4.2 g/dL (3.8-4.9); Albumin/Globulin Ratio 1.91 Ratio (1.60-3.17); Alkaline Phosphatase 53 U/L (41-126); Calcium 9.4 mg/dL (8.7-10.3); Globulin 2.2 g/dL (1.6-3.3); Total Bilirubin 0.4 mg/dL (0.3-1.2); Total Protein 6.4 g/dL (6.2-8.2)
[2024-07-24 17:04] LABS: Basophils # (A) 0.05 X 10*3/uL (0.00-0.10); Basophils % (A) 0.8 %; Eosinophils # (A) 0.15 X 10*3/uL (0.04-0.35); Eosinophils % (A) 2.5 %; HCT 38.6 % (37.2-46.3); Lymphocytes # (A) 1.85 X 10*3/uL (0.90-5.00); Lymphocytes % (A) 31.1 %; MCH 31.6 pg (27.0-32.0); MCHC 33.7 g/dL (32.0-37.0); MCV 93.9 FL (80.0-97.0); Mean Platelet Volume 9.7 FL (9.5-12.2); Monocytes # (A) 0.53 X 10*3/uL (0.20-1.00); Monocytes % (A) 8.9 %; NRBC Per 100 WBC 0 X 10*3/uL (0.00-0.01); Neutrophils # (A) 3.33 X 10*3/uL (1.80-7.70); Neutrophils % (A) 56.2 %; Platelet Count 205 X 10*3/uL (140-440); RBC 4.11 X 10*6/uL (4.10-5.20); RDW 13.1 % (11.5-14.5); WBC 5.94 X 10*3/uL (4.50-10.00)
== END | disposition home or self-care (01) ==
LOC: LABWHC1 09:23
PROVIDERS: ATTEND Surgery Plastic and Reconstructive Surgery
DX: K57.32 Diverticulitis of large intestine without perforation or abscess without bleeding (principal)
CPT/HCPCS: 36415; 80053; 85025; 86850; 86900; 86901

== ENCOUNTER 2024-07-27 07:13 | Inpatient (IN) | payer MEDICARE ==
[~2024-07-27 07:13] MED LIST changes: +LIDOCAINE 1% (10MG/ML) FOR IV START INTRADERMA PRN; -ONDANSETRON 4 MG/2 ML VIAL IVP PRN
[2024-07-27] MEDS: IV FLUID CONTINUATION 1,000 ML IV ONE (07:27)
[2024-07-27] MEDS ORDERED: Antibiotics per Pharmacy 1 EACH MISC MISCELLANE PRN (07:37)
[2024-07-27] MEDS ORDERED: HEPARIN SODIUM,PORCINE 5,000 UNIT/ML 1 ML VIAL SQ PRN (07:37)
--- NOTE | 2024-07-27 07:55 | P.GSHP ---
History of Present Illness H&P Date: 07/27/24 CHIEF COMPLAINT: Sigmoid diverticulitis with partial obstruction HISTORY OF PRESENT ILLNESS: The patient is a 79-year-old female who presents with change in bowel habits including partial large bowel obstruction for over 6 months to 8 months. She reports worsening gas bloat including constipation. She presents for surgical resection with preoperative endoscopic tattooing PAST MEDICAL HISTORY: Please see list. PAST SURGICAL HISTORY: Please see list. MEDICATIONS: Please see list. ALLERGIES: Please see list. SOCIAL HISTORY: No illicit drug use FAMILY HISTORY: No reports of Crohn disease or ulcerative colitis. REVIEW OF ORGAN SYSTEMS: CONSTITUTIONAL: Denies any fever or chills. Morbid obesity due to excess calories, BMI 35.5 HEENT: Denies any trouble with vision or nosebleeds. No difficulty swallowing. LYMPHATIC: The patient denies any lumps and bumps around the neck. ENDOCRINE: Denies any thyroid disorders. Has blood sugar glucose intolerance. RESPIRATORY: No current pneumonia CARDIOVASCULAR: Recent cardiac risk assessment. GASTROINTESTINAL: Has chronic diverticulitis. GENITOURINARY: Has increased urinary frequency. MUSCULOSKELETAL: Has back pain, stiffness, joint arthritis. NEUROLOGIC: Denies any numbness or tingling along the distal extremities. No seizure disorders or headaches. PSYCHIATRIC: Denies depression or suidical ideation. HEMATOLOGIC: Denies any abnormal bleeding or bruising. PHYSICAL EXAM: VITAL SIGNS: Stable GENERAL: Well-developed pleasant in no acute distress. HEENT: No scleral icterus. Extraocular movements grossly intact. Moist buccal mucosa. NECK: Supple without lymphadenopathy. CHEST: Unlabored respirations. Equal bilateral excursions. CARDIOVASCULAR: Regular rate and rhythm. Distal 2+ pulses. ABDOMEN: Soft, nontender, nondistended. MUSCULOSKELETAL: No clubbing, cyanosis, or edema. NERUO: Cranial nerves 2-12 grossly intact. PSYCH: Alert and oriented to person place and time. ASSESSMENT: 1. Sigmoid diverticulitis with partial bowel obstruction PLAN: 1. Benefits and risks of surgical robotic sigmoid resection was reviewed in detail. Robotic-assisted approach was also described. 2. Enhanced colon recovery program. 3. DVT prophylaxis. 4. Antibiotic prophylaxis. 5. Inpatient hospitalization greater than 2 nights. 6. Recommend colonoscopy for extent of obstruction and evaluation of neoplasm. 7. Endoscopic tattooing for resection described 8. CBC and CMP on day of endoscopy 9. Overall, patient elevated risk due to pre-existing conditions Past Medical History Past Medical History: Atrial Fibrillation, Cancer, GERD/Reflux, Hyperlipidemia, Hypertension, Skin Disorder Additional Past Medical History / Comment(s): Basal cell skin cancer x2. Hiatal hernia, diverticulosis, chronic low back pain. PAST FORKLIFT DRIVER HISTORY: She has no history of STDs. "Ringworm 2 weeks ago."-2023 resolved. History of Any Multi-Drug Resistant Organisms: None Reported Past Surgical History: Cholecystectomy, Heart Catheterization, Orthopedic Surgery Additional Past Surgical History / Comment(s): 04/26/15 heart cath-normal, EGD, colonoscopies and once a polypectomy-benign, last colonoscopy was negative for any poylps 06/2011, basal cell skin cancer removal (nose), right bunionectomies, surgery shortened eyelids.pain clinic procedures. January 2024 "I had an EGD and colonoscopy and they couldn't get through, so I barium enema.". Past Anesthesia/Blood Transfusion Reactions: No Reported Reaction Additional Past Anesthesia/Blood Transfusion Reaction / Comment(s): no HX blood transfusions. Smoking Status: Never smoker - Past Family History Daughter(s) Family Medical History: Cancer Additional Family Medical History / Comment(s): Breast cancer, uterine cancer. Father Additional Family Medical History / Comment(s): Parkinson's. Mother Family Medical History: Diabetes Mellitus, Thyroid Disorder Additional Family Medical History / Comment(s): . Medications and Allergies Home Medications Medication Instructions Recorded Confirmed Type atenoloL [Tenormin] 25 mg PO HS 08/29/17 07/27/24 History Apixaban [Eliquis] 5 mg PO BID 07/27/18 07/27/24 History Montelukast [Singulair] 10 mg PO HS 08/30/20 07/27/24 History Fiber Tab 2 tab PO DAILY 11/29/20 07/27/24 History amLODIPine [Norvasc] 5 mg PO QAM 01/22/21 07/27/24 History Escitalopram [Lexapro] 10 mg PO QAM 08/27/23 07/27/24 History Terbinafine [LamISIL] 250 mg PO QAM 08/27/23 07/27/24 History ALPRAZolam [Xanax] 0.25 mg PO QAM 07/21/24 07/27/24 History Docusate [Colace] 200 mg PO QAM 07/21/24 07/27/24 History Furosemide [Lasix] 20 mg PO DAILY 07/21/24 07/27/24 History Latanoprost [Latanoprost 0.005%] 1 drop BOTH EYES HS 07/21/24 07/27/24 History Multivitamins, Thera [Multivitamin 1 tab PO QAM 07/21/24 07/27/24 History (formulary)] Potassium. 20 mg PO QAM 07/21/24 07/27/24 History Vit C/E/Zn/Coppr/Lutein/Zeaxan 1 each PO QAM 07/21/24 07/27/24 History [Preservision Areds 2 Softgel] lisinopriL 40 mg PO QAM 07/21/24 07/27/24 History Allergies Allergy/AdvReac Type Severity Reaction Status Date / Time erythromycin base Allergy burning Verified 07/27/24 07:33 [From Erythrocin] with eye ointment rivaroxaban [From Xarelto] Allergy blood in Verified 07/27/24 07:33 urine sulfamethoxazole Allergy Nausea/Diah Verified 07/27/24 07:33 [From Bactrim] rrea trimethoprim [From Bactrim] Allergy Nausea Verified 07/27/24 07:33 salsalate [From Disalcid] AdvReac Unknown Verified 07/27/24 07:33 tobramycin AdvReac EYE Verified 07/27/24 07:33 REDNESS, ITCHING Surgical - Exam Vital Signs Temp Pulse Resp BP Pulse Ox 97.3 F L 58 L 16 116/57 94 L 07/27/24 07:41 07/27/24 07:41 07/27/24 07:41 07/27/24 07:41 07/27/24 07:41
[2024-07-27] MEDS: LACTATED RINGERS 1,000 ML IV SCH (07:57)
[2024-07-27] MEDS ORDERED: LIDOCAINE 1% INJ 10MG/ML (20 ML MDV) ONE (08:26)
[2024-07-27] MEDS ORDERED: PROPOFOL 10 MG/ML 20 ML VIAL IV ONE (08:26)
[2024-07-27 09:27] LABS: Basophils # (A) 0.1 k/uL (0-0.2); Basophils % (A) 1 %; Eosinophils # (A) 0.1 k/uL (0-0.7); Eosinophils % (A) 2 %; HCT 37.3 % (34.0-46.0); HGB 12.5 gm/dL (11.4-16.0); Lymphocytes # (A) 1.3 k/uL (1.0-4.8); Lymphocytes % (A) 20 %; MCH 31.9 pg (25.0-35.0); MCHC 33.5 g/dL (31.0-37.0); MCV 95.2 fL (80.0-100.0); Mean Platelet Volume 6.8; Monocytes # (A) 0.5 k/uL (0-1.0); Monocytes % (A) 7 %; Neutrophils # (A) 4.4 k/uL (1.3-7.7); Neutrophils % (A) 69 %; Platelet Count 204 k/uL (150-450); RBC 3.92 m/uL (3.80-5.40); RDW 12.7 % (11.5-15.5); WBC 6.5 k/uL (3.8-10.6)
[2024-07-27 09:34] LABS: ALT 16 U/L (4-34); AST 26 U/L (14-36); African American GFR (CKD) 51 (>60 ml/min/1.73 sqM); Alkaline Phosphatase 55 U/L (38-126); Anion Gap 8 mmol/L; Blood Urea Nitrogen 45 mg/dL (7-17); Calcium 9.2 mg/dL (8.4-10.2); Carbon Dioxide 23 mmol/L (22-30); Chloride 102 mmol/L (98-107); Glucose 111 mg/dL (74-99); Non-African American GFR(CKD) 44 (>60 ml/min/1.73 sqM); Potassium 3.9 mmol/L (3.5-5.1); Sodium 133 mmol/L (137-145); Total Bilirubin 0.8 mg/dL (0.2-1.3); Total Protein 6.3 g/dL (6.3-8.2)
[2024-07-27] MEDS: metroNIDAZOLE 500 MG TAB PO SCH (13:44)
[2024-07-27] MEDS: SODIUM CHLORIDE 0.9% 1,000 ML IV ONE (13:47)
[2024-07-27] MEDS: SODIUM CHLORIDE 0.9% 1,000 ML IV SCH (13:47)
[2024-07-27] MEDS: NEOMYCIN 500 MG TAB PO SCH (14:24)
[2024-07-27] MEDS: MONTELUKAST 10 MG TAB PO SCH (21:23)
[2024-07-27] MEDS: TEMAZEPAM 15 MG CAP PO ONE (21:23)
[2024-07-27] MEDS: LATANOPROST 0.005% OPHTH DROPS 2.5 ML BTL BOTH EYES SCH (21:25)
--- NOTE | 2024-07-28 05:49 | P.HPADDEND ---
H&P Addendum H&P Addendum Date: 07/28/24 Patient presents to the hospital for worsening bowel habits due to diverticulosis/diverticulitis. Patient went colonoscopy with findings of additional adenomas resected. Patient has torturous sigmoid colon. Patient underwent additional bowel prep reporting incontinence. Labs reviewed demonstrating elevated BUN/creatinine including dehydration. IV fluid hydration with another liter bolus this morning. Patient overall elevated risk due to pre-existing comorbid conditions.
[2024-07-28 06:46] LABS: Basophils % (A) 1 %; Eosinophils % (A) 1 %; HCT 33.4 % (34.0-46.0); HGB 11.2 gm/dL (11.4-16.0); Lymphocytes # (A) 1.7 k/uL (1.0-4.8); Lymphocytes % (A) 28 %; MCH 31.9 pg (25.0-35.0); MCHC 33.4 g/dL (31.0-37.0); MCV 95.7 fL (80.0-100.0); Monocytes # (A) 0.5 k/uL (0-1.0); Monocytes % (A) 8 %; Neutrophils # (A) 3.7 k/uL (1.3-7.7); Neutrophils % (A) 60 %; Platelet Count 176 k/uL (150-450); RDW 12.7 % (11.5-15.5); WBC 6.1 k/uL (3.8-10.6)
[2024-07-28] MEDS ORDERED: ACETAMINOPHEN TAB 500 MG TAB PO PRN (07:00)
[2024-07-28 07:04] LABS: ALT 15 U/L (4-34); AST 22 U/L (14-36); African American GFR (CKD) 68 (>60 ml/min/1.73 sqM); Albumin 3.3 g/dL (3.5-5.0); Albumin/Globulin Ratio 1.5; Alkaline Phosphatase 47 U/L (38-126); Anion Gap 8 mmol/L; Blood Urea Nitrogen 34 mg/dL (7-17); Calcium 8.7 mg/dL (8.4-10.2); Carbon Dioxide 21 mmol/L (22-30); Chloride 106 mmol/L (98-107); Globulin 2.2 g/dL; Glucose 87 mg/dL (74-99); Non-African American GFR(CKD) 59 (>60 ml/min/1.73 sqM); Potassium 3.7 mmol/L (3.5-5.1); Sodium 135 mmol/L (137-145); Total Bilirubin 0.8 mg/dL (0.2-1.3); Total Protein 5.5 g/dL (6.3-8.2)
[2024-07-28] MEDS: ALPRAZolam 0.25 MG TAB PO SCH (10:29)
[2024-07-28] MEDS: SODIUM CHLORIDE 0.9% 1,000 ML IV ONE ×2 (10:30→16:33)
[2024-07-28] MEDS: amLODIPine 5 MG TAB PO SCH (10:31)
[2024-07-28] MEDS: lisinopriL 20 MG TAB PO SCH (10:31)
[2024-07-28] MEDS: fentaNYL (PF) 50 MCG/ML 2 ML AMP IVP PRN (11:47)
[2024-07-28] MEDS: MIDAZOLAM 2 MG/2 ML VIAL IV ONE (11:48)
[2024-07-28] MEDS: ONDANSETRON 4 MG/2 ML VIAL IVP PRN (11:49)
[2024-07-28] MEDS: ALVIMOPAN 12 MG CAPSULE PO PRN (11:59)
--- NOTE | 2024-07-28 12:00 | P.ANPRN ---
Procedure Note - Anesthesia - Nerve Block Performed Bilateral Erector Spinae Single Time Out Performed: Yes Date of Procedure: 07/28/24 Procedure Start Time: 11:46 Procedure Stop Time: 11:55 Location of Patient: PreOp Indication: Acute Post-Operative Pain, Requested by Surgeon Sedation Type: Sedate with meaningful contact maintained Preparation: Sterile Prep Position: Sitting Needle Types: Pajunk Needle Gauge: 21 Ultrasound used to visualize needle placement: Yes Ultrasound used to observe medication spread: Yes Injectate: 0.5% Ropivacaine (see comment for volume) (15 ml + 15 ml NS + 4 mg Dexamethasone per side) Blood Aspirated: No Pain Paresthesia on Injection Noted: No Resistance on Injection: Normal Image Stored and Saved: Yes Events: Uneventful and Well Tolerated
[2024-07-28] MEDS ORDERED: NEOSTIGMINE 1 MG/ML 10 ML VIAL ONE (12:12)
[2024-07-28] MEDS ORDERED: ePHEDrine 50 MG/ML 1 ML VIAL ONE (12:12)
[2024-07-28] MEDS ORDERED: HYDROmorphone (PF) 1 MG/ML ONE (12:12)
[2024-07-28] MEDS ORDERED: ROCURONIUM 10 MG/ML (5 ML VIAL) IV ONE (12:12)
[2024-07-28] MEDS ORDERED: PROPOFOL 10 MG/ML 20 ML VIAL IV ONE (12:12)
[2024-07-28] MEDS ORDERED: LABETALOL 5 MG/ML VIAL MDV ONE (12:12)
[2024-07-28] MEDS ORDERED: fentaNYL (PF) 50 MCG/ML 2 ML AMP ONE (12:12)
[2024-07-28] MEDS ORDERED: DEXAMETHASONE SOD PHOSPHATE 4 MG/ML 1 ML VIAL ONE (12:12)
[2024-07-28] MEDS ORDERED: LIDOCAINE 1% INJ 10MG/ML (20 ML MDV) ONE (12:12)
[2024-07-28] MEDS ORDERED: GLYCOPYRROLATE 0.2 MG/ML 2 ML VIAL ONE (12:12)
[2024-07-28] MEDS ORDERED: ROPIVACAINE 5 MG/ML 30 ML VIAL ONE (12:12)
[2024-07-28] MEDS ORDERED: SODIUM CHLORIDE 0.9% (PF) 10 ML VIAL ONE (12:12)
[2024-07-28] MEDS ORDERED: SUCCINYLCHOLINE CHLORIDE 200 MG/10 ML VIAL IV ONE (12:12)
[2024-07-28] MEDS: metroNIDAZOLE-NS PMX 500 MG in SALINE 1 100ML.BAG IVPB PRN (12:30)
[2024-07-28] MEDS: LIDOCAINE 1%-EPI 1:100,000 20 ML VIAL SQ ONE (12:55)
[2024-07-28 13:47] VITALS: BMI 35.4
[2024-07-28] MEDS: LACTATED RINGERS 1,000 ML IV ONE (14:52)
--- NOTE | 2024-07-28 16:05 | P.OP ---
Date of Procedure: 07/28/24 Description of Procedure: SURGEON: ALMA MORALES MD PREOPERATIVE DIAGNOSES: 1. Partial large bowel obstruction due to diverticulosis 2. Hypertensive heart disease with congestive heart failure, diastolic dysfunction 3. Chronic atrial fibrillation 4. Glaucoma 5. Asthma 6. Depressive disorder 7. Generalized anxiety disorder 8. Morbid obesity due to excess calories, BMI 35.5 9. Hyperlipidemia 10. History of basal cell cancer 11. Chronic lower back pain POSTOPERATIVE DIAGNOSES: 1. Partial large bowel obstruction due to diverticulosis 2. Hypertensive heart disease with congestive heart failure, diastolic dysfunction 3. Chronic atrial fibrillation 4. Glaucoma 5. Asthma 6. Depressive disorder 7. Generalized anxiety disorder 8. Morbid obesity due to excess calories, BMI 35.5 9. Hyperlipidemia 10. History of basal cell cancer 11. Chronic lower back pain OPERATION: 1. Robotic-assisted daVinci Xi sigmoid colectomy with low anterior resection using 29 mm Ethicon powered stapler 2. Intraoperative colonoscopy used for sigmoidoscopy 3. Removal of foreign body clip along bladder Anesthesia: GETA, local, regional Estimated Blood Loss (ml): 20 Pathology: 1. Sigmoid colon 2. EEA donuts 3. Proximal colotomy Condition: stable Disposition: floor COMPLICATIONS: None. Operative Findings: 1. Redundant sigmoid colon and diverticulosis 2. Anastomosis with EEA stapler 29 mm 3. No tension or torsion along the anastomosis 4. Doughnuts thick and both sides and viable 5. Moderately redundant sigmoid colon without tension at anastomosis 6. Negative leak test with viable anastomosis. 7. Ovary and uterus unremarkable. 8. Surgical clips along the fundus of the bladder removed INDICATIONS: The patient is a 79-year-old female who presents with change in bowel habits, partial large bowel obstruction and sigmoid diverticulosis with tortuous colon. Surgical options were reviewed in detail including conservative measures with laxatives. Patient reported worsening symptoms despite medications opted for surgical intervention. Benefits and risks of surgical intervention was described in detail including infection, injury to the ureter, colostomy creation, possibility for additional surgery was discussed at length. Informed consent was obtained. All questions of the patient and family were answered. DESCRIPTION: Earlier the patient had undergone a bowel prep using the enhanced colon recovery program. The patient was transferred to the operating room and placed supine. After general induction, the abdomen was prepped and draped in standard sterile fashion. Ioban was placed along the abdomen to minimize any contamination of skin floor. A Barrios catheter was placed. After a timeout protocol was performed, attention was then brought to the left upper quadrant whereby a 0 degree 5 mm laparoscopic trocar entry was performed. The abdominal cavity was entered and insufflated to 15 mmHg pressure, which was tolerated well. Diagnostic laparoscopy confirmed moderately redundant sigmoid colon. The small bowel was unremarkable. Next a robotic 12-mm trocar was placed along the right lateral abdominal wall 20 cm superior from the pelvis. Two 8 mm ports were placed along the upper abdomen. Ports were placed 10 cm apart from each other including 20 cm away from the target anatomy of the left pelvis. The 12-mm port was exchanged for an 8 mm robotic port at the left upper quadrant. The robot was docked along the left lateral abdomen. The patient was positioned in steep Trendelenburg position at 14-degrees. Using atraumatic graspers and vessel sealer, the robotic system was docked and primed as described. Instruments were interchanged by the licensed physical therapist assistant including hook cautery, needle escort vehicle driver, robotic stapler and vessel sealer. The robot stapler was prepared along the right lateral abdominal wall. The stapler 12-mm port was arranged along the right lateral abdominal wall. Next, attention was brought to identify the sigmoid colon. Foreign body was identified along the bladder which was removed which was a clip. A stay suture using 3- 0 silk was placed along the anterior serosa of the redundant sigmoid colon. The sigmoid mesentery was mobilized using a vessel sealer whereby the descending colon was marked and tagged. Using robot stapler 60 mm green load, the proximal sigmoid colon was divided. The mesentery of the sigmoid colon was mobilized towards the pelvic brim and sacral promontory using a vessel sealer. The sigmoid was very redundant. Next, the sigmoid colon was divided using the robotic stapler 60 mm green staple loads. The rest of the sigmoid colon mesentery was mobilized using vessel sealer. Additionally, the sigmoid colon was mobilized onto the colon to minimize injury to the ureters. I went to the foot of the bed to confirm sizers and placement of 29-mm Ethicon powered stapler. I re-scrubbed into the case. The robotic arms were temporarily undocked. A 29-mm anvil was placed with a 3-0 silk sutured at the tip of the anvil gis professor. Then the anvil was placed via the left upper quadrant 12 mm port. All robotic arms were re-docked. I went back to the console. The staple line was opened using cautery. The anvil was entered into the proximal descending colon. The colotomy was closed using 60 mm green load. Next, the sharp tip of the anvil gis professor was brought through the staple line. The anvil gis professor was removed from the abdomen using empty clip appliers. I went to the foot of the bed to place the powered Ethicon 29 mm stapler via the rectum. The anvil and stapler were mated for 1 minute. The doughnuts were intact on both sides and thick. An intraoperative leak test was performed as I inserted the colonoscope to the anastomosis. Endoscopic images were obtained. Irrigation was placed in the pelvis and no air leaks were identified. Irrigation fluid was aspirated from the pelvis until dry. I went back to the console. All sponges and needles were removed from the abdominal cavity. The robot was undocked. I re-scrubbed into the case. Via the left upper quadrant port, the sigmoid colon was removed using 15 mm Endo Catch bag. All sponges were removed from the abdominal cavity. The left upper quadrant incision was widened to 3-cm. No contamination had occurred throughout the case. The fascial defect was oversewn using 0 Vicryl and a Matias Rosas. Next all pneumoperitoneum was evacuated from the abdominal cavity. The 8-mm trocar sites were reapproximated using 4-0 Monocryl in an interrupted subcuticular fashion. Local anesthetic was infiltrated to all wounds for postop analgesia. All incisions were also cleansed with diluted hydrogen peroxide. Silver surgical dressing Optifoam was placed over the colon extraction site. Liquid glue was applied to the rest of the skin incisions. The patient had tolerated the procedure well. The patient was extubated successfully. The patient was transferred to the postanesthesia care unit in stable condition. Intraoperative findings were described in detail to the patient's family.
[2024-07-28] MEDS ORDERED: NALOXONE 0.4 MG/ML 1 ML VIAL IV PRN (16:23)
[2024-07-28] MEDS: HYDROmorphone 0.5 MG/0.5 ML SYRINGE IVP STA (16:37)
[2024-07-28] MEDS: IV FLUID CONTINUATION 1,000 ML IV ONE (16:50)
[2024-07-28 17:08] VITALS: RESP 18
[2024-07-28] MEDS ORDERED: HYDROmorphone 1 MG/ML 1 ML SYRINGE IVP PRN (17:26)
[2024-07-28] MEDS ORDERED: BENZOCAINE/MENTHOL LOZENG 1 EACH LOZENGE MUCOUS MEM PRN (17:26)
[2024-07-28] MEDS: KETOROLAC 15 MG/ML 1 ML VIAL IVP SCH (18:51)
[2024-07-28] MEDS: ONDANSETRON 4 MG/2 ML VIAL IVP SCH (18:53)
[2024-07-28] MEDS: fentaNYL PCA 500 MCG/50 ML BAG IV SCH (20:05)
[2024-07-28] MEDS: FAMOTIDINE 20 MG/2 ML VIAL IV SCH (20:45)
[2024-07-29] MEDS: ALVIMOPAN 12 MG CAPSULE PO SCH (10:03)
[2024-07-29 14:57] VITALS: BP 142/83; PULSE 68; TEMP 98
[2024-07-29] MEDS: TAMSULOSIN 0.4 MG CAP.ER.24H PO STA (15:02)
--- NOTE | 2024-07-29 15:24 | P.DS ---
Providers Date of admission: 07/27/24 07:14 Expected date of discharge: 07/29/24 Attending physician: Dora Lund Primary care physician: Fernandez Trujillo [facility] Course: POSTOPERATIVE DIAGNOSES: 1. Partial large bowel obstruction due to diverticulosis 2. Hypertensive heart disease with congestive heart failure, diastolic dysfunction 3. Chronic atrial fibrillation 4. Glaucoma 5. Asthma 6. Depressive disorder 7. Generalized anxiety disorder 8. Morbid obesity due to excess calories, BMI 35.5 9. Hyperlipidemia 10. History of basal cell cancer 11. Chronic lower back pain COURSE: The patient is a 79-year-old female who presented with change in bowel habits due to partial large bowel obstruction from diverticulosis/diverticulitis. She had a lower endoscopy with anticipated tattooing with features of residual high risk adenomas which were resected via snare polypectomy 07/27/2024. Due to a high surgical risk, patient had bowel prep including monitoring of her atrial fibrillation. Patient underwent robotic colectomy without sequelae. Patient had urinary retention treated with Flomax and straight catheterization prior to discharge. She was tolerating low fiber diet. Her pain was well-controlled. Patient was eager to go home with close follow-up as outpatient Procedures: OPERATION: 1. Robotic-assisted daVinci Xi sigmoid colectomy with low anterior resection using 29 mm Ethicon powered stapler 2. Intraoperative colonoscopy used for sigmoidoscopy 3. Removal of foreign body clip along bladder Anesthesia: GETA, local, regional Estimated Blood Loss (ml): 20 Pathology: 1. Sigmoid colon 2. EEA donuts 3. Proximal colotomy Condition: stable Disposition: floor COMPLICATIONS: None. Operative Findings: 1. Redundant sigmoid colon and diverticulosis 2. Anastomosis with EEA stapler 29 mm 3. No tension or torsion along the anastomosis 4. Doughnuts thick and both sides and viable 5. Moderately redundant sigmoid colon without tension at anastomosis 6. Negative leak test with viable anastomosis. 7. Ovary and uterus unremarkable. 8. Surgical clips along the fundus of the bladder removed Colonoscopy with snare polypectomy 07/27/2024 Patient Condition at Discharge: Stable Plan - Discharge Summary Discharge Rx Participant: Yes New Discharge Prescriptions: New Acetaminophen Tab [Tylenol Tab] 1,000 mg PO Q6HR PRN #30 tablet PRN Reason: Pain Simethicone [Gas-X] 125 mg PO AC-TID PRN #20 capsule PRN Reason: Pain No Action atenoloL [Tenormin] 25 mg PO HS Apixaban [Eliquis] 5 mg PO BID Montelukast [Singulair] 10 mg PO HS Fiber Tab 2 tab PO DAILY amLODIPine [Norvasc] 5 mg PO QAM Escitalopram [Lexapro] 10 mg PO QAM Vit C/E/Zn/Coppr/Lutein/Zeaxan [Preservision Areds 2 Softgel] 1 each PO QAM Potassium. 20 mg PO QAM Docusate [Colace] 200 mg PO QAM Furosemide [Lasix] 20 mg PO DAILY Multivitamins, Thera [Multivitamin (formulary)] 1 tab PO QAM ALPRAZolam [Xanax] 0.25 mg PO QAM Terbinafine [LamISIL] 250 mg PO QAM lisinopriL 40 mg PO QAM Latanoprost [Latanoprost 0.005%] 1 drop BOTH EYES HS Discharge Medication List atenoloL [Tenormin] 25 mg PO HS 08/29/17 [History] Apixaban [Eliquis] 5 mg PO BID 07/27/18 [History] Montelukast [Singulair] 10 mg PO HS 08/30/20 [History] Fiber Tab 2 tab PO DAILY 11/29/20 [History] amLODIPine [Norvasc] 5 mg PO QAM 01/22/21 [History] Escitalopram [Lexapro] 10 mg PO QAM 08/27/23 [History] Terbinafine [LamISIL] 250 mg PO QAM 08/27/23 [History] ALPRAZolam [Xanax] 0.25 mg PO QAM 07/21/24 [History] Docusate [Colace] 200 mg PO QAM 07/21/24 [History] Furosemide [Lasix] 20 mg PO DAILY 07/21/24 [History] Latanoprost [Latanoprost 0.005%] 1 drop BOTH EYES HS 07/21/24 [History] Multivitamins, Thera [Multivitamin (formulary)] 1 tab PO QAM 07/21/24 [History] Potassium. 20 mg PO QAM 07/21/24 [History] Vit C/E/Zn/Coppr/Lutein/Zeaxan [Preservision Areds 2 Softgel] 1 each PO QAM 07/21/24 [History] lisinopriL 40 mg PO QAM 07/21/24 [History] Acetaminophen Tab [Tylenol Tab] 1,000 mg PO Q6HR PRN #30 tablet 07/28/24 [Rx] Simethicone [Gas-X] 125 mg PO AC-TID PRN #20 capsule 07/28/24 [Rx] Patient Instructions/Handouts: Low Fiber Diet (DC), Colectomy (DC) Activity/Diet/Wound Care/Special Instructions: Low fiber diet, no seed, nuts or broccoli
[2024-07-29] MEDS ORDERED: FAMOTIDINE 20 MG TAB PO SCH (21:00)
[2024-07-30] MEDS ORDERED: FAMOTIDINE 20 MG TAB PO SCH (09:00)
--- NOTE | 2024-07-30 14:17 | P.PN ---
Progress Note - Text Progress Note Date: 07/30/24 Patient contacted at home. She reports she is doing well. She is already passing flatus and had bowel movement less than 24 hours from discharge. She is voiding spontaneously at home. Pain is well-controlled. Patient to follow-up in the office within 72 hours. All questions were addressed including restrictions for pound lift restriction until August 27. She may resume her blood thinner 1 week after surgery for August 04. Time of conversation 1414 to 1412
== END 2024-07-29 17:26 | disposition home or self-care (01) | DRG 330 ==
LOC: ORWHC2ENDO 07:13 → 4SSUR 07:14 → ORWHC2ENDO 07:14 → 4SSUR 08:54
PROVIDERS: ADMIT Surgery Plastic and Reconstructive Surgery; ATTEND Surgery Plastic and Reconstructive Surgery
PROC: 0DBP4ZZ Excision of Rectum, Percutaneous Endoscopic Approach (ICD-10-PCS; 2024-07-28)
PROC: 8E0W4CZ Robotic Assisted Procedure of Trunk Region, Percutaneous Endoscopic Approach (ICD-10-PCS; 2024-07-28)
PROC: 0DBN4ZZ Excision of Sigmoid Colon, Percutaneous Endoscopic Approach (ICD-10-PCS; principal; 2024-07-28 12:35)
DX: K57.32 Diverticulitis of large intestine without perforation or abscess without bleeding (principal); I48.20 Chronic atrial fibrillation, unspecified; K56.600 Partial intestinal obstruction, unspecified as to cause; I50.32 Chronic diastolic (congestive) heart failure; E66.01 Morbid (severe) obesity due to excess calories; E78.5 Hyperlipidemia, unspecified; E86.0 Dehydration; F32.A Depression, unspecified; F41.1 Generalized anxiety disorder; G89.29 Other chronic pain; H40.9 Unspecified glaucoma; M54.50 Low back pain, unspecified; I11.0 Hypertensive heart disease with heart failure; J45.909 Unspecified asthma, uncomplicated; Z68.35 Body mass index [BMI] 35.0-35.9, adult; Z79.01 Long term (current) use of anticoagulants; Z79.899 Other long term (current) drug therapy; Z88.2 Allergy status to sulfonamides; Z88.8 Allergy status to other drugs, medicaments and biological substances
CPT/HCPCS: 45385; 64999; 80053; 85025; 88305; 88307

== ENCOUNTER 2024-10-07 12:07 | Emergency (ER) | payer MEDICARE ==
[2024-10-07 12:13] VITALS: RESP 18; TEMP 98.2
--- NOTE | 2024-10-07 12:38 | ED ---
General Adult HPI - General Chief complaint: Extremity Injury, Lower Stated complaint: L Foot Injury Time Seen by Provider: 10/07/24 12:37 Source: patient Mode of arrival: wheelchair Limitations: no limitations - History of Present Illness Initial comments: 79-year-old female presenting with chief complaint of left foot and ankle pain. States that yesterday she got her foot tangled up in a blanket and twisted the foot. Today she is having increased pain and swelling. She is unable to stand on the foot without significant pain. No numbness or tingling. No discoloration. - Related Data Home Medications Medication Instructions Recorded Confirmed atenoloL [Tenormin] 25 mg PO HS 08/29/17 07/27/24 Montelukast [Singulair] 10 mg PO HS 08/30/20 07/27/24 Fiber Tab 2 tab PO DAILY 11/29/20 07/27/24 amLODIPine [Norvasc] 5 mg PO QAM 01/22/21 07/27/24 Escitalopram [Lexapro] 10 mg PO QAM 08/27/23 07/27/24 Terbinafine [LamISIL] 250 mg PO QAM 08/27/23 07/27/24 ALPRAZolam [Xanax] 0.25 mg PO QAM 07/21/24 07/27/24 Docusate [Colace] 200 mg PO QAM 07/21/24 07/27/24 Furosemide [Lasix] 20 mg PO DAILY 07/21/24 07/27/24 Latanoprost [Latanoprost 0.005%] 1 drop BOTH EYES HS 07/21/24 07/27/24 Multivitamins, Thera [Multivitamin 1 tab PO QAM 07/21/24 07/27/24 (formulary)] Potassium. 20 mg PO QAM 07/21/24 07/27/24 Vit C/E/Zn/Coppr/Lutein/Zeaxan 1 each PO QAM 07/21/24 07/27/24 [Preservision Areds 2 Softgel] lisinopriL 40 mg PO QAM 07/21/24 07/27/24 Previous Rx's Medication Instructions Recorded Acetaminophen Tab [Tylenol Tab] 1,000 mg PO Q6HR PRN #30 tablet 07/29/24 Simethicone [Gas-X] 125 mg PO AC-TID PRN #30 capsule 07/29/24 Tamsulosin [Flomax] 0.4 mg PO DAILY #7 cap 07/29/24 Allergies Allergy/AdvReac Type Severity Reaction Status Date / Time erythromycin base Allergy burning Verified 10/07/24 12:13 [From Erythrocin] with eye ointment rivaroxaban [From Xarelto] Allergy blood in Verified 10/07/24 12:13 urine sulfamethoxazole Allergy Nausea/Diah Verified 10/07/24 12:13 [From Bactrim] rrea trimethoprim [From Bactrim] Allergy Nausea Verified 10/07/24 12:13 salsalate [From Disalcid] AdvReac Unknown Verified 10/07/24 12:13 tobramycin AdvReac EYE Verified 10/07/24 12:13 REDNESS, ITCHING Review of Systems ROS Statement: Those systems with pertinent positive or pertinent negative responses have been documented in the HPI. ROS Other: All systems not noted in ROS Statement are negative. Past Medical History Past Medical History: Atrial Fibrillation, Cancer, GERD/Reflux, Hyperlipidemia, Hypertension, Skin Disorder Additional Past Medical History / Comment(s): Basal cell skin cancer x2. Hiatal hernia, diverticulosis, chronic low back pain. PAST HEALTHCARE ARCHITECT HISTORY: She has no history of STDs. "Ringworm 2 weeks ago."-2023 resolved. History of Any Multi-Drug Resistant Organisms: None Reported Past Surgical History: Cholecystectomy, Heart Catheterization, Orthopedic Surgery Additional Past Surgical History / Comment(s): 04/26/15 heart cath-normal, EGD, colonoscopies and once a polypectomy-benign, last colonoscopy was negative for any poylps 06/2011, basal cell skin cancer removal (nose), right bunionectomies, surgery shortened eyelids.pain clinic procedures. January 2024 "I had an EGD and colonoscopy and they couldn't get through, so I barium enema.". Past Anesthesia/Blood Transfusion Reactions: No Reported Reaction Additional Past Anesthesia/Blood Transfusion Reaction / Comment(s): no HX blood transfusions. Past Psychological History: Anxiety Smoking Status: Never smoker Past Alcohol Use History: None Reported Past Drug Use History: None Reported - Past Family History Daughter(s) Family Medical History: Cancer Additional Family Medical History / Comment(s): Breast cancer, uterine cancer. Father Additional Family Medical History / Comment(s): Parkinson's. Mother Family Medical History: Diabetes Mellitus, Thyroid Disorder Additional Family Medical History / Comment(s): . General Exam Limitations: no limitations General appearance: alert, in no apparent distress Head exam: Present: atraumatic, normocephalic, normal inspection Eye exam: Present: normal appearance, EOMI Neck exam: Present: normal inspection. Absent: meningismus Respiratory exam: Absent: respiratory distress Left Foot/Toe exam: Present: tenderness, swelling. Absent: full ROM Neurovascular tendon exam: Present: no vascular compromise Neurological exam: Present: alert, oriented X3 Psychiatric exam: Present: normal affect, normal mood Skin exam: Present: warm, dry Course Vital Signs 10/07/24 10/07/24 12:09 13:54 Temperature 98.2 F Pulse Rate 50 L 65 Respiratory 18 18 Rate Blood Pressure 118/63 132/84 O2 Sat by Pulse 97 97 Oximetry Procedures - Orthopedic Splinting/Casting Injury #1 Side: left Lower Extremity Injury Location: foot Lower Extremity Immobilizer: posterior splint Medical Decision Making - Medical Decision Making Patient has family who see advanced orthopedics and is requesting to be seen at their office. Was pt. sent in by a medical professional or institution (, PA, PERFORMANCE TEST CONSULTANT, urgent care, hospital, or retirement...) When possible be specific @ -No Did you speak to anyone other than the patient for history (EMS, parent, family, police, friend...)? What history was obtained from this source @ -No Did you review nursing and triage notes (agree or disagree)? Why? @ -I reviewed and agree with nursing and triage notes Were old charts reviewed (outside hosp., previous admission, EMS record, old EKG, old radiological studies, urgent care reports/EKG's, retirement records)? Report findings @ -No old charts were reviewed Differential Diagnosis (chest pain, altered mental status, abdominal pain women, abdominal pain men, vaginal bleeding, weakness, fever, dyspnea, syncope, headache, dizziness, GI bleed, back pain, seizure, CVA, palpatations, mental health, musculoskeletal)? @ -Differential Musculoskeletal Muscular strain, contusion, ligament sprain, fracture, arthritis, septic arthritis, bursitis, cellulitis, muscle spasm, nerve compression, DVT, arterial occlusion, herpes zoster, electrolyte abnormality, tumor.... This is not meant to be in all inclusive list EKG interpreted by me (3pts min.). @ -As above X-rays interpreted by me (1pt min.). @ -X-ray shows acute fracture of the base of the fifth metatarsal with associated soft tissue swelling. Hallux valgus. Mild multifocal degeneration changes of the joints of the foot CT interpreted by me (1pt min.). @ -None done U/S interpreted by me (1pt. min.). @ -None done What testing was considered but not performed or refused? (CT, X-rays, U/S, labs)? Why? @ -None What meds were considered but not given or refused? Why? @ -None Did you discuss the management of the patient with other professionals (professionals i.e. , PA, PERFORMANCE TEST CONSULTANT, lab, RT, psych nurse, perinatal social worker, machine hose cutter, teacher, combat information center officer, patient case manager)? Give summary @ -No Was smoking cessation discussed for >3mins.? @ -No Was critical care preformed (if so, how long)? @ -No Were there social determinants of health that impacted care today? How? (Homelessness, low income, unemployed, alcoholism, drug addiction, transportation, low edu. Level, literacy, decrease access to med. care, shelter, rehab)? @ -No Was there de-escalation of care discussed even if they declined (Discuss DNR or withdrawal of care, Hospice)? DNR status @ -No What co-morbidities impacted this encounter? (DM, HTN, Smoking, COPD, CAD, Cancer, CVA, ARF, Chemo, Hep., AIDS, mental health diagnosis, sleep apnea, m orbid obesity)? @ -None Was patient admitted / discharged? Hospital course, mention meds given and route, prescriptions, significant lab abnormalities, going to OR and other pertinent info. @ -79-year-old female presenting with chief complaint of left foot pain. She injured it yesterday. X-ray shows fracture of the base of the fifth metatarsal. Patient is placed in a posterior short leg splint. She has a walker, wheelchair, and chair for the stairs at home. She is educated on today's findings and supportive management. Follow-up with orthopedics. Report back to ER with any new or worsening symptoms. Discussed return parameters and answered all questions. Patient conveyed verbal understanding and agreed to the plan. I discussed this case in detail with my attending Dr. Guthrie Undiagnosed new problem with uncertain prognosis? @ -No Drug Therapy requiring intensive monitoring for toxicity (Heparin, Nitro, Insulin, Cardizem)? @ -No Were any procedures done? @ -Splint applied Diagnosis/symptom? @ -Fifth metatarsal fracture Acute, or Chronic, or Acute on Chronic? @ -Acute Uncomplicated (without systemic symptoms) or Complicated (systemic symptoms)? @ -Uncomplicated Side effects of treatment? @ -No Exacerbation, Progression, or Severe Exacerbation? @ -No Poses a threat to life or bodily function? How? (Chest pain, [place], [place], pneumonia, PE, COPD, DKA, ARF, appy, cholecystitis, CVA, Diverticulitis, Homicidal, Suicidal, threat to staff... and all critical care pts) @ -Threatened if proper follow-up is not adhered to Disposition Clinical Impression: Fracture of fifth metatarsal bone Disposition: HOME SELF-CARE Condition: Fair Instructions (If sedation given, give patient instructions): Foot Fracture in Adults (ED) Additional Instructions: Follow-up with orthopedics. Report back to ER with any new or worsening symptoms. Take Tylenol as needed for pain control. Rest ice and elevate the foot. Do not bear weight on the foot. Use your walker and wheelchair Is patient prescribed a controlled substance at d/c from ED?: No Referrals: Fernandez Trujillo DO [Primary Care Provider] - 1-2 days Jayson Kam DO [Doctor of Osteopathic Medicine] - 1-2 days Time of Disposition: 13:38
--- NOTE | 2024-10-07 13:11 | XR ---
EXAMINATION TYPE: XR ankle complete LT, XR foot complete LT DATE OF EXAM: 10/07/2024 12:32 PM COMPARISON: None CLINICAL INDICATION: Female, 79 years old with history of pain; TECHNIQUE: XR ankle complete LT, XR foot complete LT; 3 views of the foot and 3 views of the ankle. FINDINGS: Acute fracture of the base of the fifth metatarsal with 2 mm displacement. No evidence of subluxation or dislocation. Kager's fat pad is intact. No radiopaque foreign bodies are identified. Calcaneal pl vi spurring is present. Multifocal degeneration changes throughout the joints of the foot with ost eophyte formation and joint space narrowing. Hallux valgus. IMPRESSION: 1. Acute fracture of the base of the fifth metatarsal with associated soft tissue swellinge 2. Hallux valgus. 3. Mild multifocal degeneration changes of the joints of the foot [facility], , 10/07/2024 1:09 PM
[2024-10-07] MEDS: ACET/COD 300 MG/30 MG STARTER PACK 6 TAB BTL PO STA (13:45)
[2024-10-07 13:56] VITALS: BP 132/84; PULSE 65
== END 2024-10-07 13:55 | disposition home or self-care (01) ==
LOC: EC 12:07
DX: S92.352A Displaced fracture of fifth metatarsal bone, left foot, initial encounter for closed fracture (principal); Z88.1 Allergy status to other antibiotic agents; Z88.2 Allergy status to sulfonamides; Z88.8 Allergy status to other drugs, medicaments and biological substances
CPT/HCPCS: 29515; 99283

== ENCOUNTER → 2025-01-31 | Outpatient (CLI) | payer MEDICARE ==
--- NOTE | 2025-01-31 11:24 | MM ---
Reason for Exam: Screening (asymptomatic). Last mammogram was performed 3 year(s) and 2 month(s) ago. Patient History: Menarche at age 14. First Full-Term at age 22. Postmenopausal. Patient has history of breast feeding. Other cancer, age 54. Progesterone, starting at age 52 for 17 years. Daughter had breast cancer, age 45. Daughter had breast cancer at or over age 50. Daughter had ovarian cancer, age 45. Risk Values: Carmel 5 year model risk: 2.7%. NCI Lifetime model risk: 3.6%. Prior Study Comparison: 07/22/2018 Bilateral Screening Mammogram, [facility]. 08/09/2019 Bilateral Screening Mammogram, [facility]. 10/24/2020 Bilateral Screening Mammogram, [facility]. 11/25/2021 Bilateral Screening Mammogram, [facility]. Tissue Density: The breasts are heterogeneously dense, which may obscure small masses. Findings: Analyzed By CAD. There is no suspicious group of microcalcifications or new suspicious mass in either breast. Benign-appearing calcification deviations. Overall Assessment: Benign, BI-RAD 2 Management: Screening Mammogram of both breasts in 1 year. . Patient should continue monthly self-breast exams. A clinical breast exam by your physician is recommended on an annual basis. This exam should not preclude additional follow-up of suspicious palpable abnormalities. Note on Carmel scores and lifetime risk: 1. A Carmel score greater than 3% is considered moderate risk. If this is the case, consider specialist referral to assess eligibility for a risk reducing agent. 2. If overall lifetime risk for the development of breast cancer is 20% or higher, the patient may qualify for future screening with alternating mammogram and breast MRI. [facility], , 01/31/2025 11:21 AM. Electronically signed and approved by: Tod Bennett M.D. [facility]
== END | disposition home or self-care (01) ==
LOC: RADMAMWWP 09:58
PROVIDERS: ATTEND Family Medicine
DX: Z12.31 Encounter for screening mammogram for malignant neoplasm of breast (principal); R92.333 Mammographic heterogeneous density, bilateral breasts; Z78.0 Asymptomatic menopausal state; Z80.3 Family history of malignant neoplasm of breast
CPT/HCPCS: 77063; 77067

== ENCOUNTER 2025-04-28 09:33 | Emergency (ER) | payer MEDICARE ==
[2025-04-28 09:38] VITALS: RESP 18; TEMP 97.8
--- NOTE | 2025-04-28 10:21 | ED ---
General Adult HPI - General Chief complaint: Abdominal Pain Stated complaint: abd pain Time Seen by Provider: 04/28/25 09:35 Source: patient, RN notes reviewed, old records reviewed Mode of arrival: wheelchair Limitations: physical limitation - History of Present Illness Initial comments: This is an 80-year-old female who presents to the emergency department complaining of abdominal pain. Patient states it started about a week ago and has gotten progressively worse. Patient states is in the lower quadrants bilaterally. Patient states she has been able to eat and drink. Patient denies any nausea vomiting. Patient has any diarrhea. Patient states there is more distention than normal. Patient states she has had a cholecystectomy as well as a colectomy over a year ago. Patient denies any fever or chills. Patient denies any back pain. Patient Nuys any dysuria hematuria urinary frequency. - Related Data Home Medications Medication Instructions Recorded Confirmed atenoloL [Tenormin] 25 mg PO HS 08/29/17 07/27/24 Montelukast [Singulair] 10 mg PO HS 08/30/20 07/27/24 Fiber Tab 2 tab PO DAILY 11/29/20 07/27/24 amLODIPine [Norvasc] 5 mg PO QAM 01/22/21 07/27/24 Escitalopram [Lexapro] 10 mg PO QAM 08/27/23 07/27/24 Terbinafine [LamISIL] 250 mg PO QAM 08/27/23 07/27/24 ALPRAZolam [Xanax] 0.25 mg PO QAM 07/21/24 07/27/24 Docusate [Colace] 200 mg PO QAM 07/21/24 07/27/24 Furosemide [Lasix] 20 mg PO DAILY 07/21/24 07/27/24 Latanoprost [Latanoprost 0.005%] 1 drop BOTH EYES HS 07/21/24 07/27/24 Multivitamins, Thera [Multivitamin 1 tab PO QAM 07/21/24 07/27/24 (formulary)] Potassium. 20 mg PO QAM 07/21/24 07/27/24 Vit C/E/Zn/Coppr/Lutein/Zeaxan 1 each PO QAM 07/21/24 07/27/24 [Preservision Areds 2 Softgel] lisinopriL 40 mg PO QAM 07/21/24 07/27/24 Previous Rx's Medication Instructions Recorded Acetaminophen Tab [Tylenol Tab] 1,000 mg PO Q6HR PRN #30 tablet 07/29/24 Simethicone [Gas-X] 125 mg PO AC-TID PRN #30 capsule 07/29/24 Tamsulosin [Flomax] 0.4 mg PO DAILY #7 cap 07/29/24 Allergies Allergy/AdvReac Type Severity Reaction Status Date / Time erythromycin base Allergy burning Verified 04/28/25 09:38 [From Erythrocin] with eye ointment rivaroxaban [From Xarelto] Allergy blood in Verified 04/28/25 09:38 urine sulfamethoxazole Allergy Nausea/Diah Verified 04/28/25 09:38 [From Bactrim] rrea trimethoprim [From Bactrim] Allergy Nausea Verified 04/28/25 09:38 salsalate [From Disalcid] AdvReac Unknown Verified 04/28/25 09:38 tobramycin AdvReac EYE Verified 04/28/25 09:38 REDNESS, ITCHING Review of Systems ROS Statement: Those systems with pertinent positive or pertinent negative responses have been documented in the HPI. ROS Other: All systems not noted in ROS Statement are negative. Past Medical History Past Medical History: Atrial Fibrillation, Cancer, GERD/Reflux, Hyperlipidemia, Hypertension, Skin Disorder Additional Past Medical History / Comment(s): Basal cell skin cancer x2. Hiatal hernia, diverticulosis, chronic low back pain. 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 "Ringworm 2 weeks ago."-2023 resolved. History of Any Multi-Drug Resistant Organisms: None Reported Past Surgical History: Cholecystectomy, Heart Catheterization, Orthopedic Surgery Additional Past Surgical History / Comment(s): 04/26/15 heart cath-normal, EGD, colonoscopies and once a polypectomy-benign, last colonoscopy was negative for any poylps 06/2011, basal cell skin cancer removal (nose), right bunionectomies, surgery shortened eyelids.pain clinic procedures. January 2024 "I had an EGD and colonoscopy and they couldn't get through, so I barium enema.". Past Anesthesia/Blood Transfusion Reactions: No Reported Reaction Additional Past Anesthesia/Blood Transfusion Reaction / Comment(s): no HX blood transfusions. Past Psychological History: Anxiety Smoking Status: Never smoker Past Alcohol Use History: None Reported Past Drug Use History: None Reported - Past Family History Daughter(s) Family Medical History: Cancer Additional Family Medical History / Comment(s): Breast cancer, uterine cancer. Father Additional Family Medical History / Comment(s): Parkinson's. Mother Family Medical History: Diabetes Mellitus, Thyroid Disorder Additional Family Medical History / Comment(s): . General Exam - General Exam Comments Initial Comments: GENERAL: Patient is well-developed and well-nourished. Patient is nontoxic and well- hydrated and is in mild distress. ENT: Neck is soft and supple. No significant lymphadenopathy is noted. Oropharynx is clear. Moist mucous membranes. Neck has full range of motion without eliciting any pain. EYES: The sclera were anicteric and conjunctiva were pink and moist. Extraocular move ments were intact and pupils were equal round and reactive to light. Eyelids were unremarkable. PULMONARY: Unlabored respirations. Good breath sounds bilaterally. No audible rales rhonchi or wheezing was noted. CARDIOVASCULAR: There is a regular rate and rhythm without any murmurs gallops or rubs. ABDOMEN: Patient has some lower abdominal distention and tenderness SKIN: Skin is clear with no lesions or rashes and otherwise unremarkable. NEUROLOGIC: Patient is alert and oriented x3. Cranial nerves II through XII are grossly intact. Motor and sensory are also intact. Normal speech, volume and content. Symmetrical smile. MUSCULOSKELETAL: Normal extremities with adequate strength and full range of motion. No lower extremity swelling or edema. No calf tenderness. LYMPHATICS: No significant lymphadenopathy is noted PSYCHIATRIC: Normal psychiatric evaluation. Limitations: physical limitation Course Vital Signs 04/28/25 09:35 Temperature 97.8 F Pulse Rate 52 L Respiratory 18 Rate Blood Pressure 128/77 O2 Sat by Pulse 97 Oximetry Medical Decision Making - Medical Decision Making Was pt. sent in by a medical professional or institution (, PA, BOLT LABELER, urgent care, hospital, or intermediate...) When possible be specific @ -No Did you speak to anyone other than the patient for history (EMS, parent, family, police, friend...)? What history was obtained from this source @ -No Did you review nursing and triage notes (agree or disagree)? Why? @ -I reviewed and agree with nursing and triage notes Were old charts reviewed (outside hosp., previous admission, EMS record, old EKG, old radiological studies, urgent care reports/EKG's, intermediate records)? Report findings @ -No old charts were reviewed Differential Diagnosis? @ -Differential Abdominal Pain Women: Appendicitis, Cholecystitis, diverticulosis, ischemic bowel, pancreatitis, hepatitis, UTI, gastroenteritis, AAA, incarcerated hernia, bowel obstruction, constipation, inflammatory bowel, hepatitis, peptic ulcer disease, splenic infarction, perforated viscus, vulvitis, ovarian torsion, PID, kidney stone, placenta abruption, this is not meant to be an all-inclusive list EKG interpreted by me (3pts min.). @ -As above X-rays interpreted by me (1pt min.). @ -None done CT interpreted by me (1pt min.). @ -Patient has a 5 cm mass near the right ovary. U/S interpreted by me (1pt. min.). @ -None done What testing was considered but not performed or refused? (CT, X-rays, U/S, labs)? Why? @ -None What meds were considered but not given or refused? Why? @ -None Did you discuss the management of the patient with other professionals (professionals i.e. , PA, BOLT LABELER, lab, RT, psych nurse, social media project manager, all source intelligence, teacher, compliance review officer, case work aide)? Give summary @ -No Was smoking cessation discussed for >3mins.? @ -No Was critical care preformed (if so, how long)? @ -No Were there social determinants of health that impacted care today? How? (Homelessness, low income, unemployed, alcoholism, drug addiction, transportation, low edu. Level, literacy, decrease access to med. care, assisted, rehab)? @ -No Was there de-escalation of care discussed even if they declined (Discuss DNR or withdrawal of care, Hospice)? DNR status @ -No What co-morbidities impacted this encounter? (DM, HTN, Smoking, COPD, CAD, Cancer, CVA, ARF, Chemo, Hep., AIDS, mental health diagnosis, sleep apnea, morbid obesity)? @ -None Was patient admitted / discharged? Hospital course, mention meds given and route, prescriptions, significant lab abnormalities, going to OR and other pertinent info. @ -I spoke with patient and offered admission she wanted to follow-up as an outpatient she stated the pain was not bad especially she sat still. Patient states she does have an [employer] but has not seen them for a while. Patient will follow-up with the primary as well as the [employer]. Undiagnosed new problem with uncertain prognosis? @ -No Drug Therapy requiring intensive monitoring for toxicity (Heparin, Nitro, Insulin, Cardizem)? @ -No Were any procedures done? @ -No Diagnosis/symptom? @ -Ovarian mass Acute, or Chronic, or Acute on Chronic? @ -Acute Uncomplicated (without systemic symptoms) or Complicated (systemic symptoms)? @ -Complicated Side effects of treatment? @ -No Exacerbation, Progression, or Severe Exacerbation? @ -No Poses a threat to life or bodily function? How? (Chest pain, [place], [place], pneumonia, PE, COPD, DKA, ARF, appy, cholecystitis, CVA, Diverticulitis, Homicidal, Suicidal, threat to staff... and all critical care pts) @ -No - Lab Data Result diagrams: 04/28/25 10:43 04/28/25 10:43 Lab Results 04/28/25 04/28/25 04/28/25 Range/Units 10:24 10:43 10:43 WBC 7.58 (4.50-10.00) 10*3/uL RBC 4.18 (4.10-5.20) 10*6/uL Hgb 13.1 (12.0-15.0) g/dL Hct 38.6 (37.2-46.3) % MCV 92.3 (80.0-97.0) fL MCH 31.3 (27.0-32.0) pg MCHC 33.9 (32.0-37.0) g/dL Plt Count 182 (140-440) 10*3/uL MPV 9.3 L (9.5-12.2) fL Immature Gran % (Auto) 0.4 % Neutrophils % 70.9 % Lymphocytes % 17.5 % Monocytes % 9.1 % Eosinophils % 1.3 % Basophils % 0.8 % Immature Gran # 0.03 (0.00-0.04) 10*3/uL Neutrophils # 5.37 (1.80-7.70) 10*3/uL Lymphocytes # 1.33 (0.90-5.00) 10*3/uL Monocytes # 0.69 (0.20-1.00) 10*3/uL Eosinophils # 0.10 (0.04-0.35) 10*3/uL Basophils # 0.06 (0.00-0.10) 10*3/uL Sodium 135 L (137-145) mmol/L Potassium 4.4 (3.5-5.1) mmol/L Chloride 102 (98-107) mmol/L Carbon Dioxide 25 (22-30) mmol/L Anion Gap 8 mmol/L BUN 25 H (7-17) mg/dL Creatinine 1.01 (0.52-1.04) mg/dL Est GFR (CKD-EPI)AfAm 60 (>60 ml/min/1.73 sqM) Est GFR (CKD-EPI)NonAf 52 (>60 ml/min/1.73 sqM) Glucose 132 H (74-99) mg/dL Plasma Lactic Acid Westley (0.7-2.0) mmol/L Calcium 8.9 (8.4-10.2) mg/dL Total Bilirubin 0.7 (0.2-1.3) mg/dL AST 23 (14-36) U/L ALT 13 (4-34) U/L Alkaline Phosphatase 47 (38-126) U/L Total Protein 6.4 (6.3-8.2) g/dL Albumin 4.0 (3.5-5.0) g/dL Amylase 44 (30-110) U/L Lipase 126 (23-300) U/L Urine Color Colorless Urine Appearance Clear (Clear) Urine pH 5.5 (5.0-8.0) Ur Specific Jamul 1.007 (1.001-1.035) Urine Protein Negative (Negative) Urine Glucose (UA) Negative (Negative) Urine Ketones Negative (Negative) Urine Blood Negative (Negative) Urine Nitrite Negative (Negative) Urine Bilirubin Negative (Negative) Urine Urobilinogen <2.0 (<2.0) mg/dL Ur Leukocyte Esterase Small H (Negative) Urine RBC <1 (0-5) /hpf Urine WBC 10 H (0-5) /hpf Urine Bacteria Few H (None) /hpf 04/28/25 Range/Units 10:43 WBC (4.50-10.00) 10*3/uL RBC (4.10-5.20) 10*6/uL Hgb (12.0-15.0) g/dL Hct (37.2-46.3) % MCV (80.0-97.0) fL MCH (27.0-32.0) pg MCHC (32.0-37.0) g/dL Plt Count (140-440) 10*3/uL MPV (9.5-12.2) fL Immature Gran % (Auto) % Neutrophils % % Lymphocytes % % Monocytes % % Eosinophils % % Basophils % % Immature Gran # (0.00-0.04) 10*3/uL Neutrophils # (1.80-7.70) 10*3/uL Lymphocytes # (0.90-5.00) 10*3/uL Monocytes # (0.20-1.00) 10*3/uL Eosinophils # (0.04-0.35) 10*3/uL Basophils # (0.00-0.10) 10*3/uL Sodium (137-145) mmol/L Potassium (3.5-5.1) mmol/L Chloride (98-107) mmol/L Carbon Dioxide (22-30) mmol/L Anion Gap mmol/L BUN (7-17) mg/dL Creatinine (0.52-1.04) mg/dL Est GFR (CKD-EPI)AfAm (>60 ml/min/1.73 sqM) Est GFR (CKD-EPI)NonAf (>60 ml/min/1.73 sqM) Glucose (74-99) mg/dL Plasma Lactic Acid Westley 1.9 (0.7-2.0) mmol/L Calcium (8.4-10.2) mg/dL Total Bilirubin (0.2-1.3) mg/dL AST (14-36) U/L ALT (4-34) U/L Alkaline Phosphatase (38-126) U/L Total Protein (6.3-8.2) g/dL Albumin (3.5-5.0) g/dL Amylase (30-110) U/L Lipase (23-300) U/L Urine Color Urine Appearance (Clear) Urine pH (5.0-8.0) Ur Specific Jamul (1.001-1.035) Urine Protein (Negative) Urine Glucose (UA) (Negative) Urine Ketones (Negative) Urine Blood (Negative) Urine Nitrite (Negative) Urine Bilirubin (Negative) Urine Urobilinogen (<2.0) mg/dL Ur Leukocyte Esterase (Negative) Urine RBC (0-5) /hpf Urine WBC (0-5) /hpf Urine Bacteria (None) /hpf Disposition Clinical Impression: Ovarian mass, right, Abdominal pain Disposition: HOME SELF-CARE Condition: Good Instructions (If sedation given, give patient instructions): Abdominal Pain (ED) Is patient prescribed a controlled substance at d/c from ED?: No Referrals: Fernandez Trujillo DO [Primary Care Provider] - 1-2 days Noah Donahue MD [STAFF PHYSICIAN] - 1-2 days Time of Disposition: 14:09
[2025-04-28 10:32] LABS: Appearance,Urine Clear (Clear); Bacteria,Urine Few /hpf; Bilirubin,Urine Negative (Negative); Blood,Urine Negative (Negative); Color,Urine Colorless; Glucose,Urine (UA) Negative (Negative); Ketones,Urine Negative (Negative); Leukocyte Esterase,Urine Small (Negative); Nitrite,Urine Negative (Negative); PH, Urine 5.5 (5.0-8.0); Protein,Urine Negative (Negative); RBC,Urine <1 /hpf (0-5); Specific Gravity,Urine 1.007 (1.001-1.035); Urobilinogen,Urine <2.0 mg/dL (<2.0); WBC,Urine 10 /hpf (0-5)
[2025-04-28 10:52] LABS: Basophils # (A) 0.06 10*3/uL (0.00-0.10); Basophils % (A) 0.8 %; Eosinophils % (A) 1.3 %; HCT 38.6 % (37.2-46.3); HGB 13.1 g/dL (12.0-15.0); Lymphocytes # (A) 1.33 10*3/uL (0.90-5.00); Lymphocytes % (A) 17.5 %; MCH 31.3 pg (27.0-32.0); MCHC 33.9 g/dL (32.0-37.0); MCV 92.3 fL (80.0-97.0); Mean Platelet Volume 9.3 fL (9.5-12.2); Monocytes # (A) 0.69 10*3/uL (0.20-1.00); Monocytes % (A) 9.1 %; Neutrophils # (A) 5.37 10*3/uL (1.80-7.70); Neutrophils % (A) 70.9 %; Platelet Count 182 10*3/uL (140-440); RBC 4.18 10*6/uL (4.10-5.20); WBC 7.58 10*3/uL (4.50-10.00)
[2025-04-28 11:24] LABS: ALT 13 U/L (4-34); African American GFR (CKD) 60 (>60 ml/min/1.73 sqM); Amylase 44 U/L (30-110); Anion Gap 8 mmol/L; Blood Urea Nitrogen 25 mg/dL (7-17); Calcium 8.9 mg/dL (8.4-10.2); Carbon Dioxide 25 mmol/L (22-30); Chloride 102 mmol/L (98-107); Glucose 132 mg/dL (74-99); Lipase 126 U/L (23-300); Non-African American GFR(CKD) 52 (>60 ml/min/1.73 sqM); Sodium 135 mmol/L (137-145); Total Bilirubin 0.7 mg/dL (0.2-1.3); Total Protein 6.4 g/dL (6.3-8.2)
[2025-04-28 11:28] LABS: AST 23 U/L (14-36); Alkaline Phosphatase 47 U/L (38-126); Potassium 4.4 mmol/L (3.5-5.1)
--- NOTE | 2025-04-28 12:27 | CT ---
EXAMINATION TYPE: CT abdomen pelvis w con DATE OF EXAM: 04/28/2025 COMPARISON: 04/30/2015 CLINICAL INDICATION: Female, 80 years old with history of abdominal pain; PHH, generalized abdominal pain. TECHNIQUE: Performed without Oral Contrast and with IV Contrast, patient injected with 80ml mL of Isovue 300. CT DLP: 1265.[address] CTDI: mGy Automated exposure control for dose reduction was used. FINDINGS: The lung bases are clear. There is a large hiatal hernia There is surgical absence of the gallbladder. There is no biliary ductal dilatation. There is no focal mass or organomegaly involving the liver, pancreas, spleen or adrenal glands. There is no solid renal mass or hydronephrosis and there is homogeneous contrast enhancement of the r enal parenchyma. The caliber the abdominal aorta is normal is no retroperitoneal adenopathy or hemorr marsha. The bowel loops are normal in caliber and there is no evidence of dilatation or obstruction. No infla mmatory changes are identified in the bowel wall or mesentery. There is a well-circumscribed 4.7 cm fluid density mass in the right pelvis possibly a right ovarian mass. There is a small amount of free fluid within the cul-de-sac. There are calcifications in the ut erus consistent with calcified uterine fibroid. There is multilevel degenerative disease in the lumbar spine. There are no focal osseous lesions IMPRESSION: 1. 4.7 cm well-circumscribed fluid-filled mass in the region of the right ovary. Ovarian neoplasm is not excluded and further evaluation is warranted. MRI of the pelvis is recommended. 2. Small amount of free fluid within the cul-de-sac. 3. Calcified uterine fibroid 4. large hiatal hernia. [facility], , 04/28/2025 12:25 PM
[2025-04-28 14:42] VITALS: BP 122/68; PULSE 78
== END 2025-04-28 14:42 | disposition home or self-care (01) ==
LOC: EC 09:33
DX: N83.291 Other ovarian cyst, right side (principal); Z88.2 Allergy status to sulfonamides; Z88.1 Allergy status to other antibiotic agents; Z88.8 Allergy status to other drugs, medicaments and biological substances
CPT/HCPCS: 36415; 80053; 82150; 83605; 83690; 85025; 81001; 74177; 99284; Q9967

== ENCOUNTER → 2025-05-08 | Outpatient (CLI) | payer MEDICARE ==
[2025-05-08 10:06] VITALS: BP 113/63; PULSE 61; RESP 17; TEMP 97.8
== END ==
LOC: WWCWWP 09:43
PROVIDERS: ATTEND Surgery
DX: Z53.9 Procedure and treatment not carried out, unspecified reason (principal)

== ENCOUNTER → 2025-05-08 | Outpatient (CLI) | payer MEDICARE ==
--- NOTE | 2025-05-08 12:01 | US ---
EXAMINATION TYPE: US pelvis complete transvag DATE OF EXAM: 05/08/2025 COMPARISON: 04/28/2025 CLINICAL INDICATION: Female, 80 years old with history of R102 PELVIC PAIN, R1909 PELVIC MASS; Mass s een on CT, pelvic pain x 3 weeks. TECHNIQUE: Transvaginal (TV) and Transabdominal (TA) . Transabdominal grayscale sonographic images of the pelvis were acquired. Transvaginal sonographic im ages were medically necessary to better assess the following anatomy: Ovaries Doppler imaging: Not performed. FINDINGS: Date of LMP: in patients 40s EXAM MEASUREMENTS: Uterus: 6.7 x 2.7 x 3.7 cm Endometrial Stripe: 0.5 cm Right Ovary: 3.4 x 1.8 x 2.9 cm Left Ovary: 2.1 x 1.3 x 1.8 cm 1. Uterus: Anteverted ? Calcified fibroid = 2.6 x 2.1 x 1.7 cm 2. Endometrium: Fluid seen within 3. Right Ovary: wnl 4. Left Ovary: wnl 5. Bilateral Adnexa: ? Bowel vs other etiology within right adnexa adjacent to right ovary; Fluid no shoshana within right adnexa 6. Posterior cul-de-sac: Fluid noted Anteverted uterus with calcified fibroid demonstrated corresponding to CT. Upper limits of normal end ometrial thickness with some fluid identified. Both ovaries appear unremarkable. Thick wall cystic st ructure within the right adnexa with some peripheral color flow identified. This measures grossly 2.5 x 1.8 cm and corresponds to prior CT. Fluid noted within the posterior cul-de-sac and within the rig ht adnexa. IMPRESSION: 1. Nonspecific right adnexal thick-walled cystic lesion which appears separate from the right ovary. Etiologies include a paratubal/paraovarian cyst versus cystadenoma versus less likely tubo-ovarian a bscess versus other etiologies with malignancy not excluded. Recommend further evaluation with MRI of pelvis with IV contrast. 2. Calcified fibroid uterus. 3. Small amount of free fluid within the pelvic cul-de-sac and right adnexa. 4. Small amount of fluid identified within the endometrial canal. [facility], , 05/08/2025 11:59 AM
--- NOTE | 2025-05-08 14:10 | P.HPOB ---
History of Present Illness H&P Date: 05/08/25 Chief Complaint: The patient is here for her routine gynecologic exam. This is an 80-year-old G2, P2 with an LMP of 1991. The patient went into the emergency room about 1-1/2 weeks ago because of low abdominal pain. She states this has been gradually getting worse with time. She states she has been eating and drinking. Her stools have been small. She has also been having some difficulty swallowing. In the emergency room a CT scan was performed on 04/28/2025. The CT scan showed a 4.7 cm fluid-filled area in the region of the right ovary. There was also small amount of free fluid within the cul-de-sac. A calcified uterine fibroid was also noted as well as a large hiatal hernia. She was scheduled for an MRI of the pelvis as follow-up to the CT scan. This was scheduled for 05/26/2025. She states the pain is doing somewhat better today, but yesterday she did have more episodes of pain in the lower abdomen. She is status post partial colectomy in July 2024 for diverticulitis. The operative report from that surgery indicates that the ovary and uterus are unremarkable. Review of Systems Weight has been fluctuating over the past year and there was a net decrease of 2 pounds. She denies respiratory or cardiac problems. GI: Stools have been small and she has had some difficulty swallowing Past Medical History Past Medical History: Atrial Fibrillation, Cancer, GERD/Reflux, Hyperlipidemia, Hypertension, Skin Disorder Additional Past Medical History / Comment(s): Basal cell skin cancer x2. Hiatal hernia, diverticulosis, chronic low back pain. 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 History of Any Multi-Drug Resistant Organisms: None Reported Past Surgical History: Cholecystectomy, Heart Catheterization, Orthopedic Surgery Additional Past Surgical History / Comment(s): 04/26/15 heart cath-normal, EGD, colonoscopies and once a polypectomy-benign, last colonoscopy was negative for any poylps 06/2011, basal cell skin cancer removal (nose), right bunionectomies, surgery shortened eyelids.pain clinic procedures. January 2024 "I had an EGD and colonoscopy and they couldn't get through, so I barium enema.". Past Anesthesia/Blood Transfusion Reactions: No Reported Reaction Additional Past Anesthesia/Blood Transfusion Reaction / Comment(s): no HX blood transfusions. Past Psychological History: Anxiety Additional Psychological History / Comment(s): . Smoking Status: Never smoker Past Alcohol Use History: None Reported Past Drug Use History: None Reported Additional History: She has been since 1964. She is a retired RN. - Past Family History Daughter(s) Family Medical History: Cancer Additional Family Medical History / Comment(s): Breast cancer, uterine cancer. Father Additional Family Medical History / Comment(s): Parkinson's. Mother Family Medical History: Diabetes Mellitus, Thyroid Disorder Additional Family Medical History / Comment(s): . Medications and Allergies Home Medications Medication Instructions Recorded Confirmed Type atenoloL [Tenormin] 12.5 mg PO HS 08/29/17 05/08/25 History Montelukast [Singulair] 10 mg PO HS 08/30/20 05/08/25 History Fiber Tab 2 tab PO DAILY 11/29/20 05/08/25 History amLODIPine [Norvasc] 5 mg PO QAM 01/22/21 05/08/25 History Escitalopram [Lexapro] 10 mg PO QAM 08/27/23 05/08/25 History ALPRAZolam [Xanax] 0.25 mg PO QAM 07/21/24 05/08/25 History Docusate [Colace] 200 mg PO QAM 07/21/24 05/08/25 History Furosemide [Lasix] 20 mg PO DAILY 07/21/24 05/08/25 History Latanoprost [Latanoprost 0.005%] 1 drop BOTH EYES 07/21/24 05/08/25 History Potassium. 20 mg PO QAM 07/21/24 05/08/25 History Vit C/E/Zn/Coppr/Lutein/Zeaxan 1 each PO QAM 07/21/24 05/08/25 History [Preservision Areds 2 Softgel] lisinopriL 40 mg PO QAM 07/21/24 05/08/25 History Acetaminophen Tab [Tylenol Tab] 1,000 mg PO Q6HR PRN #30 tablet 07/29/24 05/08/25 Rx Apixaban [Eliquis] 5 mg PO DAILY 05/08/25 05/08/25 History Cholecalciferol (Vitamin D3) 125 mcg PO DAILY 05/08/25 05/08/25 History [Vitamin D3 (125 MCG = 5,000 IU)] Omeprazole 20 mg PO DAILY 05/08/25 05/08/25 History Pantoprazole Sodium 40 mg PO DAILY 05/08/25 05/08/25 History Allergies Allergy/AdvReac Type Severity Reaction Status Date / Time erythromycin base Allergy burning Verified 05/08/25 09:57 [From Erythrocin] with eye ointment rivaroxaban [From Xarelto] Allergy blood in Verified 05/08/25 09:57 urine sulfamethoxazole Allergy Nausea/Diah Verified 05/08/25 09:57 [From Bactrim] rrea trimethoprim [From Bactrim] Allergy Nausea Verified 05/08/25 09:57 salsalate [From Disalcid] AdvReac Unknown Verified 05/08/25 09:57 tobramycin AdvReac EYE Verified 05/08/25 09:57 REDNESS, ITCHING Exam 113/63, height 5 feet 1 inch, weight 202 pounds, temperature 97.8, pulse 61, pulse oximeter 96%. BMI 38 This is a well-developed well-nourished white female who is alert and oriented times 3 in no acute distress. HEENT: Within normal limits. NECK: Supple without mass or thyromegaly. CHEST AND LUNGS: Clear to auscultation. HEART: Regular rate and rhythm. BREASTS: Are without mass or discharge. AXILLARY EXAM: Negative for adenopathy. BACK: Negative for CVA tenderness. ABDOMEN: Soft, with mild lower abdominal tenderness without rebound tenderness. There are no palpable masses. There is 1+ bowel sounds. PELVIC EXAM: Normal external genitalia with mild to moderate atrophy. Cervix and vagina appear normal with mild to moderate atrophy. There is no cervical motion tenderness. There is no unusual discharge. There is no evidence of prolapse. The uterus is midposition, nongravid size and nontender. There are no palpable adnexal masses but there is mild pelvic tenderness greater on the right side. RECTAL EXAM: Rectovaginal exam is negative for mass or tenderness and is negative for occult blood. EXTREMITIES: Nontender. Additional studies: Screening mammogram done on 01/31/[address] scan on 04/28/2025 showed a fluid-filled mass measuring 4.7 cm in the area of the right ovary. There was also a calcified uterine fibroid and a small amount of fluid within the cul-de-sac. Pelvic ultrasound was done today on 05/08/2025. Shows a nonspecific right adnexal thick walled cystic lesion which appears separate from the right ovary. This measures approximately 2.5 x 1.8 cm. IMPRESSION: 1. 80-year-old menopausal female with recent acute lower abdominal pain with a CT scan showing right adnexal fluid-filled mass measuring approximately 4.[address] scan and approximately 2.5 cm by ultrasound. There is mild tenderness in the pelvic region slightly greater on the right side. Given the July 2024 operative report at the time of her partial colectomy indicates normal uterus and ovary as well as the ultrasound findings which seems to indicate that it is separate from the right ovary, it will be important to consider not gynecologic causes for this. A pelvic abscess related to diverticulitis or post colectomy abscess should be considered. 2. Status post partial colectomy in July 2024 for diverticulitis. 3. History of osteopenia. PLAN: 1. Pap smears have been discontinued. 2. Pelvic ultrasound was recommended to further evaluate the pelvic fluid- filled mass. She has also been already scheduled for an MRI on 05/26/2025. 3. She will be following up with her general surgeon later today. She will keep the MRI as scheduled on 05/26/2025. 4. 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 5. If her pain is getting worse she can follow-up with the emergency room for further evaluation. 6. She will also return in 1 to 2 years for her well woman examination and as needed.
--- NOTE | 2025-05-08 16:57 | P.PN ---
Progress Note - Text Progress Note Date: 05/08/25 OUTPATIENT FOLLOW-UP NOTE TEST(S)/RESULTS: Pelvic ultrasound done on 05/08/2025 reveals a nonspecific right adnexal thick-walled cystic lesion which appears separate from the right ovary. This cystic lesion measured approximately 2.5 x 1.8 cm. I reviewed the recent CT scan done on 04/28/2025 and the pelvic ultrasound done today with Dr. Junior, the radiologist. He agrees that the fluid collection seems separate from the right ovary based on today's ultrasound. The fluid collection seems to be adjacent to the area of colonic reanastomosis from her July partial colectomy. METHOD OF NOTIFICATION: Patient was notified by phone on 05/08/2025. PATIENT COMMENTS: The patient saw her general surgeon, Dr. Lund today after the pelvic ultrasound appointment. DIAGNOSIS: Right adnexal fluid collection measuring 2.5 cm today and seems separate from her right ovary. The possibility of leakage from her colon reanastomosis is a possibility. Dr. Goldstein's surgical report from July 2024 also indicated the gynecologic organs were unremarkable at the time of the surgery. Gynecologic cause for the fluid collection is not likely. DISCUSSION: I discussed, by phone, the CT scan findings and today's pelvic ultrasound findings with Dr. Lund, the patient's general surgeon who did her partial colectomy last July. Dr. Lund's states she is aware of the CT scan findings and has scheduled her for procedures to further look into colon and GI problems as a possible cause for her symptoms and CT scan findings. PLAN: As above.
== END | disposition home or self-care (01) ==
LOC: RADUSWWP 11:09
PROVIDERS: ATTEND Obstetrics & Gynecology
DX: N83.201 Unspecified ovarian cyst, right side (principal); D25.9 Leiomyoma of uterus, unspecified
CPT/HCPCS: 76830; 76856

== ENCOUNTER 2025-05-17 10:39 | Day surgery (SDC) | payer MEDICARE ==
[2025-05-15 16:21] VITALS: BMI 37.5
--- NOTE | 2025-05-17 07:43 | P.GSHP ---
History of Present Illness H&P Date: 05/17/25 CHIEF COMPLAINT: Dysphagia and colon screen HISTORY OF PRESENT ILLNESS: The patient is a 80-year-old female who presents with dysphagia, gastroesophageal reflux disease and need for colon screen. Upper and lower endoscopy were offered for further evaluation and management. PAST MEDICAL HISTORY: Please see list. PAST SURGICAL HISTORY: Please see list. MEDICATIONS: Please see list. ALLERGIES: Please see list. SOCIAL HISTORY: No illicit drug use FAMILY HISTORY: No reports of Crohn disease or ulcerative colitis. REVIEW OF ORGAN SYSTEMS: CONSTITUTIONAL: No reports of fevers or chills. GI: Denies any blood in stools or constipation. PHYSICAL EXAM: VITAL SIGNS: Stable GENERAL: Well-developed pleasant in no acute distress. HEENT: No scleral icterus. Extraocular movements grossly intact. Moist buccal mucosa. NECK: Supple without lymphadenopathy. CHEST: Unlabored respirations. Equal bilateral excursions. CARDIOVASCULAR: Regular rate and rhythm. Distal 2+ pulses. ABDOMEN: Soft, nondistended. MUSCULOSKELETAL: No clubbing, cyanosis, or edema. ASSESSMENT: 1. Dysphagia and gastroesophageal reflux disease 2. Colon screen. PLAN: 1. Recommend proceeding with an upper and lower endoscopy Past Medical History Past Medical History: Atrial Fibrillation, Cancer, GERD/Reflux, Hyperlipidemia, Hypertension, Skin Disorder Additional Past Medical History / Comment(s): Basal cell skin cancer x2. Hiatal hernia, diverticulosis, chronic low back pain. 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 History of Any Multi-Drug Resistant Organisms: None Reported Past Surgical History: Cholecystectomy, Heart Catheterization, Orthopedic Surgery Additional Past Surgical History / Comment(s): 04/26/15 heart cath-normal, EGD, colonoscopies and once a polypectomy-benign, last colonoscopy was negative for any poylps 06/2011, basal cell skin cancer removal (nose), right bunionectomies, surgery shortened eyelids.pain clinic procedures. January 2024 "I had an EGD and colonoscopy and they couldn't get through, so I barium enema." Past Anesthesia/Blood Transfusion Reactions: No Reported Reaction Additional Past Anesthesia/Blood Transfusion Reaction / Comment(s): no HX blood transfusions. Daughter has problems w/ anesthesia-trouble waking up and PONV Smoking Status: Never smoker - Past Family History Daughter(s) Family Medical History: Cancer Additional Family Medical History / Comment(s): Breast cancer, uterine cancer. Father Additional Family Medical History / Comment(s): Parkinson's. Mother Family Medical History: Diabetes Mellitus, Thyroid Disorder Additional Family Medical History / Comment(s): . Brother(s) Family Medical History: Cancer Additional Family Medical History / Comment(s): lung CA Medications and Allergies Home Medications Medication Instructions Recorded Confirmed Type atenoloL [Tenormin] 12.5 mg PO HS 08/29/17 05/15/25 History Montelukast [Singulair] 10 mg PO HS 08/30/20 05/15/25 History amLODIPine [Norvasc] 5 mg PO QAM 01/22/21 05/15/25 History Escitalopram [Lexapro] 10 mg PO QAM 08/27/23 05/15/25 History ALPRAZolam [Xanax] 0.25 mg PO DAILY 07/21/24 05/15/25 History Docusate [Colace] 100 mg PO DAILY PRN 07/21/24 05/15/25 History Furosemide [Lasix] 20 mg PO DAILY 07/21/24 05/15/25 History Vit C/E/Zn/Coppr/Lutein/Zeaxan 1 each PO QAM 07/21/24 05/15/25 History [Preservision Areds 2 Softgel] lisinopriL 40 mg PO QAM 07/21/24 05/15/25 History Acetaminophen Tab [Tylenol Tab] 1,000 mg PO Q6HR PRN #30 tablet 07/29/24 05/15/25 Rx Apixaban [Eliquis] 5 mg PO BID 05/08/25 05/15/25 History Omeprazole 20 mg PO DAILY 05/08/25 05/15/25 History Pantoprazole Sodium 40 mg PO DAILY 05/08/25 05/15/25 History Cholecalciferol [Vitamin D3 (25 25 mcg PO DAILY 05/15/25 05/15/25 History Mcg = 1000 Iu)] Fiber Choice 1 dose PO DAILY 05/15/25 05/15/25 History Potassium Chloride [Klor-Con M20] 20 meq PO DAILY 05/15/25 05/15/25 History Super C W/ Zinc 1 dose PO DAILY 05/15/25 05/15/25 History Allergies Allergy/AdvReac Type Severity Reaction Status Date / Time erythromycin base Allergy burning Verified 05/15/25 15:58 [From Erythrocin] with eye ointment rivaroxaban [From Xarelto] Allergy blood in Verified 05/15/25 15:58 urine sulfamethoxazole Allergy Nausea/Diah Verified 05/15/25 15:58 [From Bactrim] rrea trimethoprim [From Bactrim] Allergy Nausea Verified 05/15/25 15:58 salsalate [From Disalcid] AdvReac Unknown Verified 05/15/25 15:58 tobramycin AdvReac EYE Verified 05/15/25 15:58 REDNESS, ITCHING
[2025-05-17] MEDS: IV FLUID CONTINUATION 1,000 ML IV ONE ×2 (10:56→12:45)
[2025-05-17 11:12] VITALS: RESP 16; TEMP 97.4
[2025-05-17] MEDS: LACTATED RINGERS 1,000 ML IV SCH (11:19)
[2025-05-17] MEDS ORDERED: LIDOCAINE 1% INJ 10MG/ML (20 ML MDV) ONE (12:10)
[2025-05-17] MEDS ORDERED: PROPOFOL 10 MG/ML 20 ML VIAL IV ONE (12:10)
[2025-05-17] MEDS ORDERED: GLYCOPYRROLATE 0.2 MG/ML 2 ML VIAL ONE (12:10)
--- NOTE | 2025-05-17 12:30 | P.PCN ---
Date of Procedure: 05/17/25 Description of Procedure: PREOPERATIVE DIAGNOSIS: Dysphagia Hiatal hernia Chronic anticoagulant use Morbid obesity excess calories, BMI 36.8 POSTOPERATIVE DIAGNOSIS: Acute esophageal ulcer with bleeding Gastroesophageal reflux disease Gastric ulcer Gastritis. Gastric polyp Recurrent diaphragmatic hiatal hernia. OPERATION: Esophagogastroduodenoscopy SURGEON: Dora Lund MD ANESTHESIA: MAC. INDICATIONS: The patient is a 80-year-old female who presents with dysphagia and hiatal hernia. Benefits were Suprep endoscopy described. DESCRIPTION: The patient was brought into the endoscopy suite and laid in the left lateral decubitus position. Moderate gastric and oral gastric secretions were identified. An Olympus gastroscope was passed along the posterior oropharynx down to the distal esophagus where the squamocolumnar junction was encountered at 32 cm from the incisors. The stomach was entered and no bile reflux was found. Additional findings are listed below. The first through third portion of the duodenum was examined. Retroflexion of the scope confirmed Hill grade 3 lower esophageal valve. The squamocolumnar junction demonstrated LA grade B erosive esophagitis. The stomach was desufflated. The patient tolerated the procedure well. FINDINGS: Squamocolumnar junction 32 cm from the incisors. Diaphragmatic hiatus at 36 cm. Hiatal hernia, 4 cm Hill grade 3 lower esophageal valve. LA grade C erosive esophagitis. Acute esophageal ulcer 3 mm x 4 with bleeding Gastric polyps, diffuse, benign, 2 mm along gastric body Chronic gastritis RECOMMENDATIONS: Discontinue anticoagulant for 5 days Carafate and omeprazole for 2 weeks to address acute esophageal ulcer Repeat upper endoscopy and 4 to 6 weeks
--- NOTE | 2025-05-17 12:52 | P.PCN ---
Date of Procedure: 05/17/25 Description of Procedure: PREOPERATIVE DIAGNOSIS: Diverticulitis Change in bowel habits History of sigmoid colectomy POSTOPERATIVE DIAGNOSIS: Tubular adenoma hepatic flexure Tubular adenoma transverse colon Tubular adenoma descending colon OPERATION: Colonoscopy to the ileocecal valve and appendiceal orifice, cecum Colonoscopy with hot snare polypectomy SURGEON: Dora Lund MD. ANESTHESIA: MAC. INDICATIONS: The patient is an 80-year-old female who presents with a change in bowel habits including diverticulitis. Benefits and risks were described and informed consent was obtained. DESCRIPTION OF PROCEDURE: The patient had undergone Suprep. The patient had been brought into the opera ting room and laid in the left lateral decubitus position. After adequate intravenous sedation, the rectum was examined with 2% lidocaine jelly. The prostate was unremarkable. No external hemorrhoids were encountered. The rectal tone was within normal limits. No lesions were palpated in the rectal vault. An Olympus colonoscope was advanced until the cecum, ileocecal valve and appendiceal orifice were clearly viewed. The prep was good. Coloanal anastomosis at 20 cm from anal verge was found. No further residual diverticulosis identified. Colonic polyps were found and removed. No evidence of focal colitis was found. Retroflexion of the scope demonstrated grade 2 internal hemorrhoids without active bleeding or inflammation. The colon was desufflated. The patient had tolerated the procedure well. Withdrawal time was over 6 minutes. FINDINGS: Aronchick preparation quality scale 2+ (1-5) Internal hemorrhoids, grade 2 No external hemorrhoids No arteriovenous malformations. No residual sigmoid diverticulosis [place]-anal anastomosis 20 cm from the anal verge Removal of 3 polyps: - Snare polypectomy descending, 5 mm tubulovillous adenoma. - Snare polypectomy hepatic flexure, 6 mm flat villous adenoma--specimen removed/not retrieved - Snare polypectomy transverse colon, 4 mm tubulovillous adenoma No focal colitis. RECOMMENDATIONS: Repeat colonoscopy 3 years, 2027 Plan - Discharge Summary Discharge Rx Participant: No New Discharge Prescriptions: New Sucralfate [Carafate] 1 gm PO BID #60 tablet Omeprazole [PriLOSEC] 40 mg PO DAILY #90 cap Continue atenoloL [Tenormin] 12.5 mg PO HS Montelukast [Singulair] 10 mg PO HS amLODIPine [Norvasc] 5 mg PO QAM Escitalopram [Lexapro] 10 mg PO QAM Vit C/E/Zn/Coppr/Lutein/Zeaxan [Preservision Areds 2 Softgel] 1 each PO QAM Furosemide [Lasix] 20 mg PO DAILY ALPRAZolam [Xanax] 0.25 mg PO DAILY Acetaminophen Tab [Tylenol] 1,000 mg PO Q6HR PRN #30 tablet PRN Reason: Pain Apixaban [Eliquis] 5 mg PO BID Super C W/ Zinc 1 dose PO DAILY Potassium Chloride [Klor-Con M20] 20 meq PO DAILY lisinopriL 40 mg PO QAM Cholecalciferol [Vitamin D3 (25 Mcg = 1000 Iu)] 25 mcg PO DAILY Discontinued Docusate [Colace] 100 mg PO DAILY PRN PRN Reason: Constipation Pantoprazole Sodium 40 mg PO DAILY Omeprazole 20 mg PO DAILY Fiber Choice 1 dose PO DAILY Discharge Medication List atenoloL [Tenormin] 12.5 mg PO HS 08/29/17 [History] Montelukast [Singulair] 10 mg PO HS 08/30/20 [History] amLODIPine [Norvasc] 5 mg PO QAM 01/22/21 [History] Escitalopram [Lexapro] 10 mg PO QAM 08/27/23 [History] ALPRAZolam [Xanax] 0.25 mg PO DAILY 07/21/24 [History] Furosemide [Lasix] 20 mg PO DAILY 07/21/24 [History] Vit C/E/Zn/Coppr/Lutein/Zeaxan [Preservision Areds 2 Softgel] 1 each PO QAM 07/21/24 [History] lisinopriL 40 mg PO QAM 07/21/24 [History] Acetaminophen Tab [Tylenol] 1,000 mg PO Q6HR PRN #30 tablet 07/29/24 [Rx] Apixaban [Eliquis] 5 mg PO BID 05/08/25 [History] Cholecalciferol [Vitamin D3 (25 Mcg = 1000 Iu)] 25 mcg PO DAILY 05/15/25 [Histo ry] Potassium Chloride [Klor-Con M20] 20 meq PO DAILY 05/15/25 [History] Super C W/ Zinc 1 dose PO DAILY 05/15/25 [History] Omeprazole [PriLOSEC] 40 mg PO DAILY #90 cap 05/17/25 [Rx] Sucralfate [Carafate] 1 gm PO BID #60 tablet 05/17/25 [Rx] Follow up Appointment(s)/Referral(s): Dora Lund MD [STAFF PHYSICIAN] - 05/22/25 2:45 pm Patient Instructions/Handouts: *Surgery [facility] - (Anesthesia) Discharge Instructions Outpatient Surgery, Peptic Ulcer (DC), Hiatal Hernia (DC), Colorectal Polyps (GEN), Colonoscopy (DC), Upper Endoscopy (DC) Activity/Diet/Wound Care/Special Instructions: Do not continue blood thinners for 7 days until 05/24/2025 Discharge Disposition: HOME SELF-CARE
[2025-05-17 13:14] VITALS: BP 115/78; PULSE 67
== END 2025-05-17 14:08 | disposition home or self-care (01) ==
LOC: ORWHC2ENDO 10:39
PROVIDERS: ATTEND Surgery Plastic and Reconstructive Surgery
DX: Z12.11 Encounter for screening for malignant neoplasm of colon (principal); D12.3 Benign neoplasm of transverse colon; D12.4 Benign neoplasm of descending colon; K63.5 Polyp of colon; K64.1 Second degree hemorrhoids; K29.50 Unspecified chronic gastritis without bleeding; K22.11 Ulcer of esophagus with bleeding; K31.7 Polyp of stomach and duodenum; K21.00 Gastro-esophageal reflux disease with esophagitis, without bleeding; K44.9 Diaphragmatic hernia without obstruction or gangrene; I48.91 Unspecified atrial fibrillation; I10 Essential (primary) hypertension; E78.5 Hyperlipidemia, unspecified; G89.29 Other chronic pain; M54.50 Low back pain, unspecified; F41.9 Anxiety disorder, unspecified; E66.01 Morbid (severe) obesity due to excess calories; Z68.36 Body mass index [BMI] 36.0-36.9, adult; Z79.01 Long term (current) use of anticoagulants; Z79.899 Other long term (current) drug therapy; Z87.19 Personal history of other diseases of the digestive system; Z90.49 Acquired absence of other specified parts of digestive tract; Z98.0 Intestinal bypass and anastomosis status; Z85.828 Personal history of other malignant neoplasm of skin; Z88.2 Allergy status to sulfonamides; Z88.1 Allergy status to other antibiotic agents; Z88.8 Allergy status to other drugs, medicaments and biological substances
CPT/HCPCS: 88305; 45385; 43235; J2003; J2704; J1596

== ENCOUNTER → 2025-05-26 | Outpatient (CLI) | payer MEDICARE ==
--- NOTE | 2025-05-31 18:26 | MR ---
EXAMINATION TYPE: MR pelvis wo/w con DATE OF EXAM: 05/26/2025 COMPARISON: Pelvic ultrasound 05/08/2025, CT abdomen and pelvis 04/28/2025 CLINICAL INDICATION:Female, 80 years old with history of N83.201 PELVIS W/WO; [facility], TECHNIQUE: Triplane multisequence imaging was performed of the pelvis. Then the patient was given c ontrast/gadolinium, 9 cc of Gadobutrol and multiple post contrast sequences where obtained. FINDINGS: Reproductive: Vagina: Unremarkable. Uterus: The uterus is anteverted to the left in position. Uterus measures 5.3 x 3.8 x 2.5 cm. There a re 2 hypodense lesions within the left uterine fundus with largest measuring up to 9 mm. These corres pond to calcified intramural fibroids on CT. The endometrium is within normal limits. The junctional zone measures up to 8 mm in the lower uterine segment which is below the threshold for adenomyosis. Ovaries: Atrophic bilateral ovaries. No suspicious left ovarian lesion. Decreased size of posterior r ight paraovarian lesion measuring 2.3 x 1.4 cm (series 601, image 26). The wall measures 4 mm in thic kness. Somewhat tubular in appearance. There is central nonenhancement identified. The lesion has dec reased in size from prior CT where it measured up to 4.7 cm. No distinct papillary projections. Bladder: Unremarkable. Bowel: Unremarkable as visualized. Peritoneum: Trace free fluid in the pelvic cul-de-sac. No evidence of adenopathy. Vasculature: Unremarkable. Abdominal wall/soft tissues: Small fat filled umbilical hernia. Musculoskeletal: Dextrocurvature of the visualized lumbar spine. Multilevel degenerative disc disease . Other: Gallbladder is surgically absent. Multiple pancreatic cystic lesions identified. Most prominen t within the pancreatic head measuring up to 1.1 cm. IMPRESSION: 1. Right paraovarian peripherally enhancing lesion measuring up to 2.3 cm. Has decreased in size from prior CT where it measured 4.7 cm. Etiologies include paraovarian cyst versus peritoneal inclusion c yst versus resolving tubo-ovarian abscess. Malignancy is thought to be less likely due to decreased s ize however not excluded. Gynecologic consultation is recommended with consideration for short-term f ollow-up ultrasound. 2. Small fibroid changes of the uterus. 3. Normal thickness endometrium. [facility], , 05/31/2025 6:24 PM
== END | disposition home or self-care (01) ==
LOC: RADMRIMAIN 14:00
PROVIDERS: ATTEND Family Medicine
DX: N83.201 Unspecified ovarian cyst, right side (principal); D25.9 Leiomyoma of uterus, unspecified; N83.8 Other noninflammatory disorders of ovary, fallopian tube and broad ligament
CPT/HCPCS: 72197; A9585